=== PATIENT | male | born 1930 | race Caucasian/White ===

== ENCOUNTER 2018-02-11 11:00 | Outpatient (CLI) | payer MEDICARE, OTHER ==
[2018-02-11 19:23] LABS: ALKALINE PHOSPHATASE 57 IU/L (42-121); ALT ALANINE AMINOTRANSFERASE 16 IU/L (10-60); AST ASPARTATE AMINOTRANSFERASE 27 IU/L (10-42); BUN - BLOOD UREA NITROGEN 12 mg/dL (6-20); CARBON DIOXIDE - CO2 27 mmol/L (21-32); CHLORIDE 99 mmol/L (101-111); CHOL/HDL RATIO 2.9 (<5.0); CHOLESTEROL 126 mg/dL; CREATININE 0.6 mg/dL (0.6-1.2); GFR - MDRD 128 (>89); GLUCOSE 102 mg/dL (70-100); HDL CHOLESTEROL 44 mg/dL; LDL CHOLESTEROL,CALCULATED 58 mg/dL; LDL/HDL RATIO 1.3 (<3.6); SODIUM 134 mmol/L (135-145); VLDL CHOLESTEROL 24 mg/dL
[2018-02-11 19:48] LABS: ALBUMIN/GLOBULIN RATIO 0.7 (1.0-2.2); TOTAL PROTEIN 7.3 g/dL (6.7-8.2)
== END 2018-02-11 11:01 | disposition home or self-care (01) ==
LOC: LAB.WCP 11:00
PROVIDERS: ATTEND Family Medicine
DX: E87.1 Hypo-osmolality and hyponatremia (principal); I10 Essential (primary) hypertension; E78.5 Hyperlipidemia, unspecified
CPT/HCPCS: 36415; 80053; 80061; 83721

== ENCOUNTER 2018-04-13 08:56 | Outpatient (CLI) | payer MEDICARE, OTHER | END 2018-04-13 08:57 | disposition critical access hospital (66) | LOC: EMS 08:56 | PROVIDERS: ATTEND Surgery | DX: R55 Syncope and collapse (principal) | CPT/HCPCS: A0425; A0429 ==

== ENCOUNTER 2018-04-13 09:07 | Inpatient (IN) | payer MEDICARE, OTHER ==
--- NOTE | 2018-04-13 09:16 | ED Physician Documentation ---
History of Present Illness - Stated complaint Stated Complaint: SYNCOPAL EPISODE - Additonal information Additional information: hx from pt 88 male syncope BIBA pt states this AM he had a terrible ache from his head down his back to the sacrum was leaning on counter trying to ease the pain then he passed out and fell to the floor no injruy suffered awoke seconds later he believed but was generally weak and unable to get up off the floor, also 2/2 bad L hip which has been that way since his hip replacement denies recent med changed denies RAYMOND CP AP no fever cough NVD urinary sx no blood thinners Review of Systems Constitutional: denies: Fever, Chills Cardiac: denies: Chest pain / pressure, Palpitations Respiratory: denies: Dyspnea, Cough GI: denies: Abdominal Pain, Nausea, Vomiting : denies: Incontinent Musculoskeletal: reports: Back pain Neurologic: reports: Generalized weakness Endocrine: denies: Easy bruising / bleeding Immunocompromised: denies: Immunocompromised PD PAST MEDICAL HISTORY - Past Medical History Cardiovascular: Hypertension, High cholesterol Endocrine/Autoimmune: None HEENT: None Psych: None Musculoskeletal: Rheumatoid arthritis - Past Surgical History Past Surgical History: Yes General: Appendectomy Ortho: Hip replacement HEENT: Cataracts, Tonsil/Adenoidectomy - Present Medications Home Medications: Ambulatory Orders Medication Instructions Recorded Confirmed Aspirin [Children's Aspirin] 81 mg PO DAILY 09/15/13 02/28/16 Simvastatin [Zocor] 20 mg PO QPM 09/15/13 02/28/16 Etanercept [Enbrel] 0 mg IM ONCE 03/09/14 02/28/16 Atenolol 25 mg PO DAILY 04/13/18 Timolol 0.5% Ophth Drops [Timoptic 1 drops 04/13/18 0.5% Ophth Drops] - Allergies Allergies/Adverse Reactions: Allergies Allergy/AdvReac Type Severity Reaction Status Date / Time gold sodium thiomalate Allergy Intermediate Rash Verified 04/13/18 09:16 - Social History Does the pt smoke?: Yes Smoking Status: Current every day smoker Does the pt drink ETOH?: Yes Does the pt have substance abuse?: No - Immunizations Immunizations are current?: Yes - POLST Patient has POLST: Yes PD ED PE NORMAL - Vitals Vital signs reviewed: Yes - General General: Alert and oriented X 3 - HEENT HEENT: Atraumatic, PERRL - Neck Neck: No bony TTP - Cardiac Cardiac: RRR - Respiratory Respiratory: No respiratory distress, Clear bilaterally - Abdomen Abdomen: Non tender, Other (no pulsatile mass appreciated) - Derm Derm: Normal color - Extremities Extremities: No deformity - Neuro Neuro: Alert and oriented X 3, 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, No motor deficit (trouble moving left shoulder and hip 2/2 arthritis but baseline per pt), Normal speech Eye Opening: Spontaneous Motor: Obeys Commands Verbal: Oriented GCS Score: 15 Results - Vitals Vitals: Vital Signs - 24 hr 04/13/18 04/13/18 04/13/18 09:08 10:04 11:32 Temperature 36.0 C L 36.9 C Heart Rate 118 H 57 L Respiratory 15 16 Rate Blood Pressure 156/74 H 136/67 H O2 Saturation 94 98 Oxygen O2 Source [] Nasal cannula O2 Source [] Nasal cannula O2 Source Room air - EKG (time done) 0914 Rate: Rate (enter#) Rhythm: NSR (difficult to identify P waves but regular normal sinus) [place]: Normal - Labs Labs: Laboratory Tests 04/13/18 04/13/18 04/13/18 09:21 09:21 09:21 WBC 3.3 L RBC 4.24 L Hgb 13.8 L Hct 39.7 L MCV 93.6 MCH 32.5 H MCHC 34.7 RDW 15.0 Plt Count 209 MPV 8.2 Neut # (Auto) 1.2 L Lymph # (Auto) 1.5 [place] # (Auto) 0.5 Eos # (Auto) 0.0 Baso # (Auto) 0.0 Absolute Nucleated RBC 0.00 Nucleated RBC % 0.1 Sodium 134 L Potassium 3.5 Chloride 98 L Carbon Dioxide 27 Anion Gap 9.0 BUN 12 Creatinine 0.6 Estimated GFR (MDRD) 127 Glucose 193 H Lactic Acid Calcium 8.7 Total Bilirubin 0.9 AST 26 ALT 14 Alkaline Phosphatase 69 Troponin I < 0.04 Total Protein 6.8 Albumin 2.9 L Globulin 3.9 Albumin/Globulin Ratio 0.7 L Lipase 45 Urine Color Urine Clarity Urine pH Ur Specific [place] Urine Protein Urine Glucose (UA) Urine Ketones Urine Occult Blood Urine Nitrite Urine Bilirubin Urine Urobilinogen Ur Leukocyte Esterase Ur Microscopic Review Urine Culture Comments 09/30/18 09/30/18 09:21 11:34 WBC RBC Hgb Hct MCV MCH MCHC RDW Plt Count MPV Neut # (Auto) Lymph # (Auto) [place] # (Auto) Eos # (Auto) Baso # (Auto) Absolute Nucleated RBC Nucleated RBC % Sodium Potassium Chloride Carbon Dioxide Anion Gap BUN Creatinine Estimated GFR (MDRD) Glucose Lactic Acid 3.3 H* Calcium Total Bilirubin AST ALT Alkaline Phosphatase Troponin I Total Protein Albumin Globulin Albumin/Globulin Ratio Lipase Urine Color YELLOW Urine Clarity CLEAR Urine pH 7.5 Ur Specific [place] 1.010 Urine Protein NEGATIVE Urine Glucose (UA) NEGATIVE Urine Ketones NEGATIVE Urine Occult Blood NEGATIVE Urine Nitrite NEGATIVE Urine Bilirubin NEGATIVE Urine Urobilinogen 0.2 (NORMAL) Ur Leukocyte Esterase NEGATIVE Ur Microscopic Review NOT INDICATED Urine Culture Comments NOT INDICATED - Rads (name of study) CXR Radiology: See rad report (NACPD) CTA chest abd pelvis Radiology: See rad report (no PE no dissection no acute process) PD MEDICAL DECISION MAKING - ED course ED course: syncope in 89 male with tachycardia and elev lactate had back pain so got CTA neg for dissection AAA no infection found on exam or work up - no skin infection, no UTI, no pma gave empiric broad spectrum invanz and will admit - Sepsis Event Vital Signs: Vital Signs - 24 hr 04/13/18 04/13/18 04/13/18 09:08 10:04 11:32 Temperature 36.0 C L 36.9 C Heart Rate 118 H 57 L Respiratory 15 16 Rate Blood Pressure 156/74 H 136/67 H O2 Saturation 94 98 Oxygen O2 Source [] Nasal cannula O2 Source [] Nasal cannula O2 Source Room air Departure - Departure Disposition: 66 [facility] DC/Xfer Clinical Impression: Tachycardia, Elevated lactic acid level Syncope Qualifiers: Syncope type: unspecified Qualified Code(s): R55 - Syncope and collapse Condition: Fair
[2018-04-13 09:27] LABS: BASOPHILS % (AUTO) 0.6 %; EOSINOPHILS % (AUTO) 1.1 %; HGB - HEMOGLOBIN 13.8 g/dL (14.0-18.0); LYMPHOCYTES # (AUTO) 1.5 10^3/uL (1.5-3.5); LYMPHOCYTES % (AUTO) 46.1 %; MEAN CORPUSCULAR HEMOGLOBIN 32.5 pg (27.0-31.0); MEAN CORPUSCULAR HGB CONC 34.7 g/dL (32.0-36.0); MEAN CORPUSCULAR VOLUME 93.6 fL (80.0-94.0); MEAN PLATELET VOLUME 8.2 fL (7.4-11.4); MONOCYTES # (AUTO) 0.5 10^3/uL (0.0-1.0); MONOCYTES % (AUTO) 16.2 %; NEUTROPHILS # (AUTO) 1.2 10^3/uL (1.5-6.6); PLT - PLATELET COUNT 209 10^3/uL (130-450); RED BLOOD COUNT 4.24 10^6/uL (4.70-6.10); WHITE BLOOD COUNT 3.3 x10^3/uL (4.8-10.8)
[2018-04-13 09:42] LABS: ALBUMIN 2.9 g/dL (3.2-5.5); ALBUMIN/GLOBULIN RATIO 0.7 (1.0-2.2); BILIRUBIN,TOTAL 0.9 mg/dL (0.2-1.0); CALCIUM 8.7 mg/dL (8.5-10.3); CREATININE 0.6 mg/dL (0.6-1.2); TOTAL PROTEIN 6.8 g/dL (6.7-8.2)
[2018-04-13] MEDS ORDERED: SODIUM CHLORIDE 0.9% 1,000 ML IV ONE (09:55)
[2018-04-13] MEDS ORDERED: SODIUM CHLORIDE 0.9% 2,400 ML IV ONE (09:55)
[2018-04-13] MEDS ORDERED: IOPAMIDOL-300 100 ML VIAL ONE (10:02)
--- NOTE | 2018-04-13 10:03 | XRAY Report ---
Reason: back pain syncope Procedure Date: 04/13/2018 Accession Number: [id number] / [id number] Procedure: XR - Chest 1 View X-Ray CPT Code: 92626 FULL RESULT: EXAM: CHEST RADIOGRAPHY EXAM DATE: 04/13/2018 09:37 AM. CLINICAL HISTORY: Back pain syncope. COMPARISON: CHEST 2 VIEW PA/LAT 02/28/2016 1:24 PM. TECHNIQUE: Upright AP view. Projection is lordotic. FINDINGS: Lungs/Pleura: Minimal right hemidiaphragm elevation, as before. Minimal linear band of atelectasis or scarring at the right lung base, as before. Otherwise, lungs are clear. No peribronchial cuffing or interstitial abnormality. No pneumothorax or gross pleural fluid. Mediastinum: Within exam limitations, the cardiomediastinal contour is normal. Mild aortic arch calcification. Other: None. IMPRESSION: No evidence of active cardiopulmonary disease. RADIA
[2018-04-13] MEDS ORDERED: IOPAMIDOL-300 100 ML VIAL IVP ONE (10:41)
[2018-04-13 11:36] LABS: BILIRUBIN,URINE NEGATIVE (NEGATIVE); GLUCOSE, URINE (UA) NEGATIVE (NEGATIVE); KETONES,URINE (UA) NEGATIVE (NEGATIVE); LEUKOCYTE ESTERASE, URINE NEGATIVE (NEGATIVE); NITRITE,URINE NEGATIVE (NEGATIVE); OCCULT BLOOD,URINE NEGATIVE (NEGATIVE); PH,URINE 7.5 PH (5.0-7.5); PROTEIN,URINE NEGATIVE (NEGATIVE); UROBILINOGEN,URINE 0.2 (NORMAL) E.U./dL (NORMAL)
[2018-04-13 11:38] LABS: CLARITY,URINE CLEAR (CLEAR)
--- NOTE | 2018-04-13 12:02 | CT Report ---
Reason: back pain sycnope tachycardia Procedure Date: 04/13/2018 Accession Number: [id number] / [id number] Procedure: CT - Chest Angio (AORTA) CPT Code: FULL RESULT: EXAM: CT ANGIOGRAM CHEST, ABDOMEN AND PELVIS EXAM DATE: 04/13/2018 10:51 AM. CLINICAL HISTORY: Back pain sycnope tachycardia. COMPARISONS: Abdomen and pelvis CT of 09/17/2013. Correlation made with chest radiographs of today and 02/28/2016.. TECHNIQUE: Routine axial helical CT angiographic imaging was performed through the chest, abdomen, and pelvis. IV Contrast: 100 mL Omnipaque 350. Reconstructions: Coronal, sagittal. In accordance with CT protocol optimization, one or more of the following dose reduction techniques were utilized for this exam: automated exposure control, adjustment of mA and/or KV based on patient size, or use of iterative reconstructive technique. FINDINGS: Noncontrast images were not performed. The presence of intramural hematoma cannot be assessed. Vascular Structures: No pulmonary embolism. Moderate atherosclerosis of the aorta and its branches. No aneurysm. No dissection or penetrating atherosclerotic ulcer. Common origin of the innominate and left common carotid arteries, a normal anatomic variant. 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 Lungs/Pleura: Moderate biapical pleural parenchymal scarring, left greater than right. Linear scarring at the anterior left upper lobe. Mild right lower lobe dependent atelectasis. A 3 cm bulla left lower lobe, stable. No pleural effusion or pneumothorax. Unchanged moderate right hemidiaphragm elevation. Mediastinum: Normal heart size. No pericardial effusion. Coronary artery atherosclerosis. Upper abdomen: Hypoattenuating lesions in the liver, the largest of which represent cysts and the smallest of which are too small to definitively characterize. Normal spleen, and pancreas, adrenal glands,. Mild bilateral nonspecific perinephric fat stranding. Normal gallbladder. The common bile duct measures up to 10 mm in diameter but tapers normally distally without obstructing lesion identified, likely related to patient's age. Bones: Mild wedge compression deformity of the T6 vertebral body. Other: None. IMPRESSION: 1. No acute abnormality on CT chest angiogram. 2. No pulmonary embolism. 2. No aortic aneurysm, dissection, or penetrating atherosclerotic ulcer. Presence of intramural hematoma cannot be assessed on the postcontrast images. RADIA
[2018-04-13] MEDS ORDERED: ERTAPENEM 1 GM in SODIUM CHLORIDE 0.9% MINIBAG 100 ML IV STA (12:18)
--- NOTE | 2018-04-13 12:18 | CT Report ---
Reason: back pain syncope tachycardia Procedure Date: 04/13/2018 Accession Number: [id number] / [id number] Procedure: CT - Abdomen/Pelvis Angio CPT Code: FULL RESULT: EXAM: CT ANGIOGRAM ABDOMEN AND PELVIS WITH CONTRAST EXAM DATE: 04/13/2018 10:51 AM. CLINICAL HISTORY: Back pain syncope tachycardia. COMPARISONS: Chest CT of today, abdomen and pelvis CT of 09/17/2013. TECHNIQUE: Routine helical CT angiogram imaging was performed through the abdomen and pelvis in the arterial phase. IV contrast: 100 mL Isovue-300 in conjunction with chest CT of today. Enteric contrast: No. Reconstructions: Coronal, sagittal, and 3D MIP reconstructions. In accordance with CT protocol optimization, one or more of the following dose reduction techniques were utilized for this exam: automated exposure control, adjustment of mA and/or KV based on patient size, or use of iterative reconstructive technique. FINDINGS: Presence of intramural hematoma cannot be assessed without noncontrast images. Vasculature: Severe atherosclerosis of the aorta and its branches. 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 Aorta is normal in caliber. 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 No dissection. No penetrating atherosclerotic ulcer. Lung Bases: 3 similar bulla left lower lobe. Mild right lower lobe atelectasis. Stable moderate right hemidiaphragm elevation. Normal heart size. No pericardial effusion. Three-vessel Coronary artery atherosclerosis. Mild bilateral gynecomastia. Abdominal Solid Organs: Hypoattenuating lesions in the liver, the largest of which are perseverative insistence most of which are too small to definitively characterize. Normal spleen, pancreas, adrenal glands. Mild bilateral nonspecific perinephric fat stranding. No renal stones or hydroureteronephrosis. Normal gallbladder. Common bile duct measures up to 10 mm in diameter but tapers normally distally, likely related to patient's age. Peritoneal Cavity: Colonic interposition. Small and large bowel normal in caliber without evidence of inflammation or obstruction. Moderate colonic stool burden. Severe colonic diverticulosis. Apparent mild rectal wall thickening is similar to 2014 CT. No ascites or pneumoperitoneum. Pelvic Organs: Evaluation of the pelvis is degraded by metallic streak artifact. Normal urinary bladder. Bones: Severe degenerative disk disease L3 L4 through L5 S1, stable. Mild wedge compression deformities of L1 and L2, stable. Bilateral total hip arthroplasties appear in near anatomic alignment. Severe bilateral sacroiliac osteoarthritis, stable. Bone [place] right inferior pubic ramus. Other: None. IMPRESSION: 1. No aortic dissection or aneurysm. 2. 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 RADIA
[2018-04-13] MEDS ORDERED: ACETAMINOPHEN 325 MG TABLET PO PRN (13:47)
[2018-04-13] MEDS: D5NS W/20 MEQ KCL 1,000 ML IV SCH (17:09)
[2018-04-13] MEDS: SODIUM CHLORIDE FLUSH 0.9% 10 ML SYRINGE IVP SCH (17:09)
[2018-04-13 19:37] LABS: INR 1.1 (0.8-1.2)
[2018-04-13] MEDS: metroNIDAZOLE 500 MG/100 ML 500 MG/100 ML BAG IV SCH (19:40)
[2018-04-13] MEDS: CEFEPIME 2 GM in SODIUM CHLORIDE 0.9% MINIBAG 100 ML IV SCH (19:40)
[2018-04-13] MEDS ORDERED: VANCOMYCIN PER PHARMACY 100 GM in SODIUM CHLORIDE 0.9% 250 ML IV SCH (20:00)
[2018-04-13] MEDS ORDERED: VANCOMYCIN INJ 2 GM in SODIUM CHLORIDE 0.9% 500 ML IV SCH (20:00)
[2018-04-13] MEDS: TIMOLOL 0.5% OPHTH DROPS EACHEYE SCH (22:03)
--- NOTE | 2018-04-13 23:42 | HISTORY & PHYSICAL EXAMINATION ---
DATE OF SERVICE: 04/13/2018 Physician: Luanne Levine MD HISTORY OF PRESENT ILLNESS: This is an 88-year-old white male with a history of rheumatoid arthritis, COPD and continues to smoke, prior fall with a hip fracture, history of alcohol withdrawal. The patient awoke having back pain, which he states he normally gets occasionally due to his rheumatoid arthritis. The pain became so severe that it was 10/10. He stood up to stretch out his back, walked to the kitchen, warmed up his coffee, and got something out of the refrigerator to drink. As he was standing and stretching out his back, he had a syncopal episode. There was no prodrome of diaphoresis, clammy feeling or palpitations. He did awaken on the floor, thinks he did not have any trauma. He called his [employer] immediately which was on his body. While lying there, he was able to drink the Ensure that he took out of the refrigerator to drink. There was no chest pain. He states that lying on the cool floor on his back relieved his back pain, and he has had none since. The paramedics were able to come in the door because he keeps it unlocked, and they packed him on a gurney and brought him here. He cannot remember what his initial vital signs were on the scene. In the ER, his heart rate was 116 initially, BP was normal. The patient states he had a syncopal episode about 4 years ago when he was taking off a T-shirt reaching over his head and then without warning had syncope. He did hit the back of his head and had a laceration. He did not seek medical attention for this at all, did not get any lacerations, or any imaging of the head. Lately, the patient denies dizziness in general, denies frequent falls. There has been no recent fever, cough, urinary symptoms or diarrhea. No recent travel, no sick contacts, no changes in medications. ALLERGIES: GOLD, WHICH HE GOT 20 YEARS AGO FOR HIS RHEUMATOID ARTHRITIS TREATMENT. MEDICATIONS 1. Timolol eye drops. 2. Zocor 20 mg every evening. 3. Atenolol 25 mg daily. 4. Baby aspirin daily. 5. Possibly Enbrel SOCIAL HISTORY: The patient smokes 1/2 to 1 pack a day, drinks 4 scotch and water drinks every night, denies any illicit drug use. FAMILY HISTORY: No inherited diseases. The patient is , and his ex- then 10 years ago. He has children in the [facility] area but nobody locally. The patient is retired from the [employer] and then worked in the [employer] area and also as a real estate portfolio manager. REVIEW OF SYSTEMS: A comprehensive review of systems was performed, and the pertinent positives are in the HPI; the rest are negative. PHYSICAL EXAMINATION GENERAL: Elderly white male sitting up in bed. He is in no distress. VITAL SIGNS: Blood pressure 140/70, heart rate 58 in sinus rhythm, afebrile, room air saturation 97%. HEENT: Exam reveals anisocoria. He has right lower lid lag. His oral mucosa is moist. He has very poor dentition, with many teeth missing. NECK: Exam shows positive JVD in a vertical position. No carotid bruits. CHEST: Increased AP diameter but lungs are clear. There is no wheezing or rales. CARDIOVASCULAR: Heart sounds normal. No audible murmur. ABDOMEN: Soft. Positive bowel sounds. Nontender. No organomegaly. EXTREMITIES: No clubbing, cyanosis, edema. NEUROLOGIC: Intact. LABORATORY DATA: Sodium 134, potassium 3.5, BUN 12, creatinine 0.6. Lactic acid 3.3. Normal liver tests, normal bilirubin and alkaline phosphatase. Troponin not detectable x2. Lipase normal. White blood count 3.3 with a left shift. Hemoglobin 13.8, MCV 93, RDW normal, platelet count normal at 209. No INR was done. Urinalysis unremarkable. IMAGING Chest x-ray: No active pulmonary disease. The patient had CT scanning and CTA from head down to pelvis, and this showed no remarkable findings such as stroke, bleed. There was atherosclerosis seen in aorta and other vessels but no significant stenoses. ELECTROCARDIOGRAM: Ectopic atrial rhythm with a marked first-degree AV block, LVH voltage, early RS transition. IMPRESSION/DIAGNOSES 1. Syncope. 2. Systemic inflammatory response syndrome (SIRS) with tachycardia on presentation at 116 and elevated lactic acid level. No sign of infection that is obvious, however. 3. Back pain with etiology unclear but no evidence of aortic dissection or spinal abnormality such as abscess. 4. Rheumatoid arthritis, with Enbrel use giving him immunocompromised status. 5. Alcohol abuse. 6. Atherosclerosis, seen by imaging. 7. 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 8. Chronic obstructive pulmonary disease by exam, in a long time smoker. PLAN 1. Place the patient on telemetry. 2. Fully culture. 3. Start IV fluids. 4. Follow his lactic acid until it is normal, per sepsis protocol. 5. Check orthostatic vital signs. 6. Cycle troponins. 7. Obtain an Echocardiogram to rule out structural heart disease. 8. Begin empiric antibiotics for sepsis of unknown etiology using cefepime, vancomycin, Flagyl. Await the cultures, and if they are negative, then after 48 hours the plan will be to stop these. CODE STATUS: FULL CODE. DEEP VENOUS THROMBOSIS PROPHYLAXIS: SCDs. No anticoagulation because of risk of syncope and fall and trauma. ATTESTATION: The patient is expected to be discharged or transferred to another facility within 96 hours: Yes. TD: 04/13/2018 19:18 MTDD
[2018-04-14] MEDS: metroNIDAZOLE 500 MG/100 ML 500 MG/100 ML BAG IV SCH ×3 (04:00→20:27)
[2018-04-14] MEDS: SODIUM CHLORIDE FLUSH 0.9% 10 ML SYRINGE IVP SCH ×3 (04:01→16:18)
[2018-04-14] MEDS: SODIUM CHLORIDE FLUSH 0.9% 10 ML SYRINGE IVP PRN (05:03)
[2018-04-14] MEDS: D5NS W/20 MEQ KCL 1,000 ML IV SCH ×2 (05:07→14:41)
[2018-04-14 06:36] LABS: BASOPHILS % (AUTO) 0.4 %; EOSINOPHILS % (AUTO) 0.7 %; LYMPHOCYTES # (AUTO) 1.9 10^3/uL (1.5-3.5); LYMPHOCYTES % (AUTO) 56.1 %; MEAN CORPUSCULAR HEMOGLOBIN 32.5 pg (27.0-31.0); MEAN CORPUSCULAR HGB CONC 34.6 g/dL (32.0-36.0); MEAN PLATELET VOLUME 7.9 fL (7.4-11.4); MONOCYTES # (AUTO) 0.5 10^3/uL (0.0-1.0); MONOCYTES % (AUTO) 15.5 %; NEUTROPHILS # (AUTO) 0.9 10^3/uL (1.5-6.6); NEUTROPHILS % (AUTO) 27.3 %; PLT - PLATELET COUNT 163 10^3/uL (130-450); RED BLOOD COUNT 3.38 10^6/uL (4.70-6.10); RED CELL DISTRIBUTION WIDTH 14.8 % (12.0-15.0); WHITE BLOOD COUNT 3.3 x10^3/uL (4.8-10.8)
[2018-04-14 06:47] LABS: CREATININE 0.5 mg/dL (0.6-1.2); MAGNESIUM 1.7 mg/dL (1.7-2.8)
[2018-04-14] MEDS: CEFEPIME 2 GM in SODIUM CHLORIDE 0.9% MINIBAG 100 ML IV SCH ×2 (08:13→20:26)
[2018-04-14] MEDS: SACCHAROMYCES BOULARDII 250 MG CAPSULE PO SCH ×2 (08:14→16:18)
[2018-04-14] MEDS: ASPIRIN CHEW 81 MG TABLET PO SCH (08:14)
[2018-04-14] MEDS: FAMOTIDINE 20 MG TABLET PO SCH (08:14)
[2018-04-14] MEDS: POLYETHYLENE GLYCOL 3350 17 GM PACKET PO SCH (08:15)
[2018-04-14] MEDS: TIMOLOL 0.5% OPHTH DROPS EACHEYE SCH ×2 (08:19→20:38)
[2018-04-14] MEDS ORDERED: POTASSIUM CHLORIDE 20 MEQ TABLET PO SCH (08:21)
--- NOTE | 2018-04-14 11:07 | PROVIDER PROGRESS NOTE ---
Assessment/Plan - Problem List (1) Syncope Qualifiers: Syncope type: unspecified Qualified Code(s): R55 - Syncope and collapse Assessment/Plan: The patient was orthostatic yesterday with drop in systolic BP >20 mmHg with standing. Today's postural VS show improvement, after hydration overnight. Trop s are neg. Echo still pending. Will ask for PT and OT eval today. I suspect the patient may need more assistance at home than just [employer] deliveries for dinner daily. (2) Elevated lactic acid level Assessment/Plan: No obvious source of an infection. Possibly elevated due to dehydration. Will continue empiric iv antibiotics for 48 hours then stop if no infection found. (3) Dehydration Assessment/Plan: Poor po intake, patient admits to. Continue iv hydration today. Nutrition to assess for malnutrition and suggest dietary changes. (4) Rheumatoid arthritis Assessment/Plan: It is unclear if he takes Enbrel currently or not. Will ask Pharmacy to clarify. Pt has no complaints of arthritic pain today. (5) HTN (hypertension) Assessment/Plan: The Atenolol was on hold, since his EKG showed an ectopic atrial rhythm along with a marked first degree block, which could have been the cause of syncope, if he had a higher degree of heart block. Will recheck his rhythm with an EKG and will continue on telemetry to monitor his rhythm, especially while he is starting to ambulate with PT. (6) Leukopenia Assessment/Plan: Unclear etiology; possibly bone marrow suppression from Enbrel, or due to poor ability to mount a WBC response to huge infection at elderly age (but he does not appear toxic), or from unknown bone marrow malignancy. Continue to monitor CBC daily. - Current Meds Current Meds: Current Medications Generic Name Dose Route Start Last Admin Trade Name Freq PRN Reason Stop Dose Admin Aspirin 81 mg 04/14/18 09:00 04/14/18 08:14 [place] Aspirin PO 81 mg DAILY WILLIE Administration Famotidine 20 mg 04/14/18 09:00 04/14/18 08:14 Pepcid PO 20 mg DAILY WILLIE Administration Potassium Chloride/Dextrose/Sod Cl 1,000 mls @ 100 mls/hr 04/13/18 14:00 04/14/18 05:07 IV 100 mls/hr .Q10H WILLIE Administration Cefepime HCl 2 gm/ Sodium 100 mls @ 200 mls/hr 04/13/18 20:00 04/14/18 08:45 Chloride IV Infused Q12H WILLIE Infusion Metronidazole 500 mg in 100 mls @ 100 mls/hr 04/13/18 20:00 04/14/18 05:04 Flagyl 500 Mg/100 Ml IV Infused Q8H WILLIE Infusion Vancomycin HCl 100 gm/ Sodium 250 mls @ 167 mls/hr 04/13/18 20:00 04/13/18 21:16 Chloride IV Not Given Q400H WILLIE Polyethylene Glycol 17 gm 04/14/18 09:00 04/14/18 08:15 Miralax PO Not Given DAILY WILLIE Saccharomyces Boulardii 250 mg 04/14/18 08:00 04/14/18 08:14 Florastor PO 250 mg BIDWM WILLIE Administration Sodium Chloride 10 ml 04/13/18 13:47 04/14/18 05:03 Normal Saline Flush 0.9% IVP 10 ml PRN PRN Administration NEEDED PER PROVIDER ORDERS Sodium Chloride 10 ml 04/13/18 17:00 04/14/18 08:15 Normal Saline Flush 0.9% IVP Not Given 0100,0900,1700 WILLIE Timolol Maleate 1 drops 04/13/18 21:00 04/14/18 08:19 Timoptic 0.5% Ophth Drops EACHEYE 1 drops BID WILLIE Administration - Lab Result Fish Bone Diagrams: 04/14/18 06:17 04/14/18 06:17 - Additional Planning My Orders: My Active Orders 04/13/18 13:47 Activity Orders [RC] QSHIFT IO [RC] IOSHIFT Initiate Bowel Care Protocol [RC] .protocol Initiate Line Care Protocol [RC] .protocol Initiate Line Care Protocol [RC] QSHIFT Initiate Personal Care Protoco [RC] .protocol Oxygen Therapy [RC] Routine Vital Signs [RC] 0800,1600,0000 Acetaminophen [Tylenol] 650 mg PO Q4HR PRN Sodium Chloride Flush 0.9% [Normal Saline Flush 0.9%] 10 ml IVP PRN PRN Code Status [OTHERS] Routine Condition of Patient [OTHERS] Routine DVT Prophylaxis [OTHERS] Routine 04/13/18 13:50 IV Insert [RC] .ONCE SCDs [RC] QSHIFT Telemetry- [RC] Q4H 04/13/18 13:51 Echo Transthoracic Complete [ECHO] Routine Evaluate and Treat OT [OT] Routine Evaluate and Treat PT [PT] Routine 04/13/18 13:54 Postural [Vital Signs - Orthostatic] [RC] QSHIFT 04/13/18 14:00 D5ns W/20 Meq KCl 1,000 ml IV 100 mls/hr 04/13/18 16:36 CUL, URINE [RM] Routine 04/13/18 17:00 Sodium Chloride Flush 0.9% [Normal Saline Flush 0.9%] 10 ml IVP 0100,0900,1700 04/13/18 18:48 CIWA-Ar Score Assessment [RC] ENDSHIFT 04/13/18 20:00 Cefepime 2 gm Sodium Chloride 0.9% Minibag [Normal Saline 0.9% Minibag] 100 ml IV Q12H Vancomycin Per Pharmacy [Vancomycin-Pharmacy To Dose] 100 gm Sodium Chloride 0.9% [Normal Saline 0.9%] 250 ml IV Q400H metroNIDAZOLE 500 MG/100 ML [Flagyl 500 mg/100 ml] 500 mg in 100 ml IV Q8H 04/13/18 21:00 Timolol 0.5% Ophth Drops [Timoptic 0.5% Ophth Drops] 1 drops EACHEYE BID 04/13/18 Dinner Regular Diet [DIET] 04/14/18 09:00 Aspirin Chewable [[place] Aspirin] 81 mg PO DAILY Famotidine [Pepcid] 20 mg PO DAILY Polyethylene Glycol 3350 [Miralax] 17 gm PO DAILY 04/14/18 11:00 Atenolol [Tenormin] 25 mg PO DAILY 04/14/18 14:00 Vancomycin Inj [Vancomycin] 1 gm Sodium Chloride 0.9% [Normal Saline 0.9%] 250 ml IV Q18H 04/15/18 05:00 BMP - BASIC METABOLIC PANEL [CHEM] DAILYLAB CBC - COMP BLD CT W/AUTO DIFF [HEME] DAILYLAB MAGNESIUM [CHEM] DAILYLAB 04/16/18 05:00 BMP - BASIC METABOLIC PANEL [CHEM] DAILYLAB CBC - COMP BLD CT W/AUTO DIFF [HEME] DAILYLAB MAGNESIUM [CHEM] DAILYLAB Subjective - Subjective Patient Reports: Feeling Better, Resting Comfortably, Other (Still has no appetite.) Objective Vital Signs: Vital Signs - 24 hr 04/13/18 04/13/18 04/13/18 11:32 12:36 15:00 Temperature 36.9 C 36.8 C Heart Rate 70 Heart Rate [ 62 Brachial] Heart Rate [ Sitting (After 1 Minute)] Heart Rate [ Standing (After 1 Minute)] Heart Rate [ Supine] Respiratory 24 16 Rate Blood Pressure 145/97 H Blood Pressure 149/78 H [Right Brachial artery] Blood Pressure [Sitting (After 1 Minute)] Blood Pressure [Standing ( After 1 Minute) ] Blood Pressure [Supine] O2 Saturation 100 100 04/13/18 04/13/18 04/13/18 16:00 16:23 21:02 Temperature 36.4 C L 36.4 C L Heart Rate 63 Heart Rate [ 58 L Brachial] Heart Rate [ 65 Sitting (After 1 Minute)] Heart Rate [ 71 Standing (After 1 Minute)] Heart Rate [ 58 L Supine] Respiratory 18 16 Rate Blood Pressure Blood Pressure 165/87 H [Right Brachial artery] Blood Pressure 113/62 [Sitting (After 1 Minute)] Blood Pressure 124/65 [Standing ( After 1 Minute) ] Blood Pressure 165/87 H [Supine] O2 Saturation 97 97 04/13/18 04/14/18 04/14/18 23:40 01:30 01:52 Temperature 36.4 C L Heart Rate Heart Rate [ 58 L 59 L Brachial] Heart Rate [ 60 Sitting (After 1 Minute)] Heart Rate [ 67 Standing (After 1 Minute)] Heart Rate [ 62 Supine] Respiratory 16 Rate Blood Pressure Blood Pressure 129/64 134/56 H [Right Brachial artery] Blood Pressure 128/78 [Sitting (After 1 Minute)] Blood Pressure 134/62 H [Standing ( After 1 Minute) ] Blood Pressure 134/65 H [Supine] O2 Saturation 96 96 04/14/18 04/14/18 05:40 08:00 Temperature 36.6 C 36.5 C Heart Rate Heart Rate [ 57 L 64 Brachial] Heart Rate [ Sitting (After 1 Minute)] Heart Rate [ Standing (After 1 Minute)] Heart Rate [ Supine] Respiratory 18 26 H Rate Blood Pressure Blood Pressure 123/57 L 134/62 H [Right Brachial artery] Blood Pressure [Sitting (After 1 Minute)] Blood Pressure [Standing ( After 1 Minute) ] Blood Pressure [Supine] O2 Saturation 97 95 Oxygen O2 Source [With Activity] Nasal cannula O2 Source [Without Activity] Nasal cannula O2 Source Room air I&O (Last 24 Hrs): Intake and Output Totals x24h 04/12/18 04/13/18 04/14/18 23:59 23:59 23:59 Intake Total 3363.334 1436.666 Output Total 800 500 Balance 2563.334 936.666 General: Alert, Oriented x3 HEENT: Mucous membr. moist/pink, Other (Lower lids lag) Neck: Supple, No JVD Neuro: Non Focal, Oriented Times 3 Cardiovascular: No murmurs Respiratory: No respiratory distress Abdomen: Soft Extremities: No edema - Results Results: Laboratory Results WBC 3.3 x10^3/uL (4.8-10.8) L 04/14/18 06:17 RBC 3.38 10^6/uL (4.70-6.10) L 04/14/18 06:17 Hgb 11.0 g/dL (14.0-18.0) L 04/14/18 06:17 Hct 31.8 % (42.0-52.0) L 04/14/18 06:17 MCV 94.0 fL (80.0-94.0) 04/14/18 06:17 MCH 32.5 pg (27.0-31.0) H 04/14/18 06:17 MCHC 34.6 g/dL (32.0-36.0) 04/14/18 06:17 RDW 14.8 % (12.0-15.0) 04/14/18 06:17 Plt Count 163 10^3/uL (130-450) 04/14/18 06:17 MPV 7.9 fL (7.4-11.4) 04/14/18 06:17 Neut # (Auto) 0.9 10^3/uL (1.5-6.6) L 04/14/18 06:17 Lymph # (Auto) 1.9 10^3/uL (1.5-3.5) 04/14/18 06:17 [place] # (Auto) 0.5 10^3/uL (0.0-1.0) 04/14/18 06:17 Eos # (Auto) 0.0 10^3/uL (0.0-0.7) 04/14/18 06:17 Baso # (Auto) 0.0 10^3/uL (0.0-0.1) 04/14/18 06:17 Absolute Nucleated RBC 0.00 x10^3/uL 04/14/18 06:17 Nucleated RBC % 0.1 /100WBC 04/14/18 06:17 ESR 44 mm/Hr (0-20) H 04/13/18 20:52 PT 12.0 secs (9.9-12.6) 04/13/18 09:21 INR 1.1 (0.8-1.2) 04/13/18 09:21 Sodium 135 mmol/L (135-145) 04/14/18 06:17 Potassium 3.2 mmol/L (3.5-5.0) L 04/14/18 06:17 Chloride 103 mmol/L (101-111) 04/14/18 06:17 Carbon Dioxide 24 mmol/L (21-32) 04/14/18 06:17 Anion Gap 8.0 (6-13) 04/14/18 06:17 BUN 10 mg/dL (6-20) 04/14/18 06:17 Creatinine 0.5 mg/dL (0.6-1.2) L 04/14/18 06:17 Estimated GFR (MDRD) 157 (>89) 04/14/18 06:17 Glucose 128 mg/dL (70-100) H 04/14/18 06:17 Lactic Acid 1.1 mmol/L (0.5-2.2) 04/14/18 06:17 Calcium 8.0 mg/dL (8.5-10.3) L 04/14/18 06:17 Magnesium 1.7 mg/dL (1.7-2.8) 04/14/18 06:17 Total Bilirubin 0.9 mg/dL (0.2-1.0) 04/13/18 09:21 AST 26 IU/L (10-42) 04/13/18 09:21 ALT 14 IU/L (10-60) 04/13/18 09:21 Alkaline Phosphatase 69 IU/L (42-121) 04/13/18 09:21 Troponin I < 0.04 ng/mL (<0.49) 04/13/18 20:52 Total Protein 6.8 g/dL (6.7-8.2) 04/13/18 09:21 Albumin 2.9 g/dL (3.2-5.5) L 04/13/18 09:21 Globulin 3.9 g/dL (2.1-4.2) 04/13/18 09:21 Albumin/Globulin Ratio 0.7 (1.0-2.2) L 04/13/18 09:21 Lipase 45 U/L (22-51) 04/13/18 09:21 Urine Color YELLOW 04/13/18 11:34 Urine Clarity CLEAR (CLEAR) 04/13/18 11:34 Urine pH 7.5 PH (5.0-7.5) 04/13/18 11:34 Ur Specific [place] 1.010 (1.002-1.030) 04/13/18 11:34 Urine Protein NEGATIVE mg/dL (NEGATIVE) 04/13/18 11:34 Urine Glucose (UA) NEGATIVE mg/dL (NEGATIVE) 04/13/18 11:34 Urine Ketones NEGATIVE mg/dL (NEGATIVE) 04/13/18 11:34 Urine Occult Blood NEGATIVE (NEGATIVE) 04/13/18 11:34 Urine Nitrite NEGATIVE (NEGATIVE) 04/13/18 11:34 Urine Bilirubin NEGATIVE (NEGATIVE) 04/13/18 11:34 Urine Urobilinogen 0.2 (NORMAL) E.U./dL (NORMAL) 04/13/18 11:34 Ur Leukocyte Esterase NEGATIVE (NEGATIVE) 04/13/18 11:34 Ur Microscopic Review NOT INDICATED 04/13/18 11:34 Urine Culture Comments NOT INDICATED 04/13/18 11:34 - Procedures Procedures: Procedures CATARAC PHACOEMULS/ASPIR (02/10/15) INSERT LENS AT CATAR EXT (02/10/15) PARTIAL HIP REPLACEMENT (09/15/13) ABX Reporting Has patient been on IV antibiotics over the past 48 hours?: Yes
[2018-04-14] MEDS: ATENOLOL 25 MG TABLET PO SCH (11:44)
--- NOTE | 2018-04-14 12:47 | ADVANCE CARE PLANNING NOTE ---
Advance Care Planning - Date/Time Date: 04/14/18 Time: 08:45 - Purpose of encounter Text: To establish patient's wishes regarding Code status and aggressiveness of care. - Parties in attendance Parties in attendance: The patient and I spoke in his room. - Decisional capacity Decisional capacity of: The patient is alert and oriented x3 and capable of making decisions. - Subjective/Patient's story Subjective/Patient's story: The patient was marries, and ex- 10 years ago. His 2 children live in this state and out of state. There is beatriz who is the closest. He lives alone, drives, spends his day, watching TV and reading. He makes no meals for himself, gets no home help, but gets [employer] for dinner every day for the past 4 years. He does not wish to be shocked or have CPR for a cardiac arrest, but wants all other and aggressive medical care if there is a chance of improving his medical condition, including being transferred to higher level of care facilities if needed. - Objective/Medical story Objective/Medical Story: He presented after syncope in his home. He wears his Life Alert and pressed it. He leaves his door unlocked and the contour sander were able to walk into his home, they found him on the floor. He does not have a history of frequent falls, he has had one other syncopal episode 4 years ago (for which he sought no medical attention). He is dehydrated and was admitted with tachycardia and elevated lactic acid level, therefore he may have an occult infection, cultures are pending while he is on empiric iv antibiotics. He has rheumatoid arthritis and was on Enbrel until about 6 mos ago, when he last picked up a prescription from the pharmacy at the [facility]. He does not have severe arthritic pain. - Goals of Care Goals of care determinations: Will order DNR status per his wishes. He will be seen by PT, OT and Social Work to assess for need for more in-home help. - Plan Plan: Will order DNR status per his wishes. - Code Status Code Status: Do Not Attempt Resuscitation - Time Spent on Advance Care Planning Time spent on advance care plannin min
[2018-04-14] MEDS ORDERED: BENZOCAINE/MENTHOL LOZENGE MM PRN (18:53)
[2018-04-14] MEDS ORDERED: VANCOMYCIN INJ 1.25 GM in SODIUM CHLORIDE 0.9% 250 ML IV SCH (22:00)
[2018-04-15] MEDS: D5NS W/20 MEQ KCL 1,000 ML IV SCH ×3 (02:29→23:51)
[2018-04-15] MEDS: SODIUM CHLORIDE FLUSH 0.9% 10 ML SYRINGE IVP SCH ×4 (03:43→23:52)
[2018-04-15] MEDS: metroNIDAZOLE 500 MG/100 ML 500 MG/100 ML BAG IV SCH (03:43)
[2018-04-15] MEDS: SODIUM CHLORIDE FLUSH 0.9% 10 ML SYRINGE IVP PRN (04:51)
[2018-04-15 06:44] LABS: BASOPHILS % (AUTO) 0.5 %; EOSINOPHILS % (AUTO) 1.1 %; HGB - HEMOGLOBIN 11.1 g/dL (14.0-18.0); LYMPHOCYTES # (AUTO) 2.2 10^3/uL (1.5-3.5); LYMPHOCYTES % (AUTO) 52.8 %; MEAN CORPUSCULAR HEMOGLOBIN 32.8 pg (27.0-31.0); MEAN CORPUSCULAR HGB CONC 35.3 g/dL (32.0-36.0); MEAN CORPUSCULAR VOLUME 92.9 fL (80.0-94.0); MONOCYTES # (AUTO) 0.6 10^3/uL (0.0-1.0); MONOCYTES % (AUTO) 15.4 %; NEUTROPHILS # (AUTO) 1.2 10^3/uL (1.5-6.6); NEUTROPHILS % (AUTO) 30.2 %; PLT - PLATELET COUNT 163 10^3/uL (130-450); RED CELL DISTRIBUTION WIDTH 15.1 % (12.0-15.0); WHITE BLOOD COUNT 4.1 x10^3/uL (4.8-10.8)
[2018-04-15 06:51] LABS: CALCIUM 7.8 mg/dL (8.5-10.3); CREATININE 0.5 mg/dL (0.6-1.2); MAGNESIUM 1.7 mg/dL (1.7-2.8)
[2018-04-15] MEDS: TIMOLOL 0.5% OPHTH DROPS EACHEYE SCH ×2 (08:20→20:26)
[2018-04-15] MEDS: ASPIRIN CHEW 81 MG TABLET PO SCH (08:20)
[2018-04-15] MEDS: SACCHAROMYCES BOULARDII 250 MG CAPSULE PO SCH ×2 (08:20→16:20)
[2018-04-15] MEDS: ATENOLOL 25 MG TABLET PO SCH (08:20)
[2018-04-15] MEDS: FAMOTIDINE 20 MG TABLET PO SCH (08:20)
[2018-04-15] MEDS: CEFEPIME 2 GM in SODIUM CHLORIDE 0.9% MINIBAG 100 ML IV SCH (08:20)
[2018-04-15] MEDS: POLYETHYLENE GLYCOL 3350 17 GM PACKET PO SCH (08:21)
--- NOTE | 2018-04-15 11:47 | PROVIDER PROGRESS NOTE ---
Subjective - Prog Note Date Prog Note Date: 04/15/18 Prog Note Time: 11:53 - Subjective Subjective: Daughter is in the room. Really concerned because she thinks dad needs help at home. Is looking to get 2 hours of help a day. Social work is already spoken to her yesterday and giving her a list of in-home support providers. I have explained that she really needs to take that list and start calling those people to hire them. Mr. Arzate himself is just weak. He developed copious diarrhea from the antibiotics. He denies abdominal pain, chest pain, shortness of breath. Just feels like a "limp noodle". Current Medications - Current Medications Current Medications: Active Medications Acetaminophen (Tylenol) 650 mg PO Q4HR PRN PRN Reason: Pain or Fever > 38C (100.4F) Aspirin ([place] Aspirin) 81 mg PO DAILY [facility] Last Admin: 04/15/18 08:20 Dose: 81 mg Atenolol (Tenormin) 25 mg PO DAILY [facility] Last Admin: 04/15/18 08:20 Dose: 25 mg Famotidine (Pepcid) 20 mg PO DAILY [facility] Last Admin: 04/15/18 08:20 Dose: 20 mg Potassium Chloride/Dextrose/Sod Cl () 1,000 mls @ 100 mls/hr IV .Q10H [facility] Last Admin: 04/15/18 02:29 Dose: 100 mls/hr Cefepime HCl 2 gm/ Sodium (Chloride) 100 mls @ 200 mls/hr IV Q12H [facility] Last Infusion: 04/15/18 08:50 Dose: Infused Metronidazole (Flagyl 500 Mg/100 Ml) 500 mg in 100 mls @ 100 mls/hr IV Q8H [facility] Last Infusion: 04/15/18 04:48 Dose: Infused Vancomycin HCl 1.25 gm/ Sodium (Chloride) 250 mls @ 167 mls/hr IV Q24H [facility] Last Infusion: 04/14/18 23:32 Dose: Infused Polyethylene Glycol (Miralax) 17 gm PO DAILY [facility] Last Admin: 04/15/18 08:21 Dose: Not Given Saccharomyces Boulardii (Florastor) 250 mg PO BIDWM [facility] Last Admin: 04/15/18 08:20 Dose: 250 mg Sodium Chloride (Normal Saline Flush 0.9%) 10 ml IVP PRN PRN PRN Reason: NEEDED PER PROVIDER ORDERS Last Admin: 04/15/18 04:51 Dose: 10 ml Sodium Chloride (Normal Saline Flush 0.9%) 10 ml IVP 0100,0900,1700 [facility] Last Admin: 04/15/18 08:21 Dose: 10 ml Throat Lozenges (Cepacol) 1 lozenge MM Q2HR PRN PRN Reason: Throat pain Last Admin: 04/14/18 21:53 Dose: 1 lozenge Timolol Maleate (Timoptic 0.5% Ophth Drops) 1 drops EACHEYE BID [facility] Last Admin: 04/15/18 08:20 Dose: 1 drops Aspirin [Children's Aspirin] 81 mg PO DAILY 09/15/13 Simvastatin [Zocor] 20 mg PO QPM 09/15/13 Atenolol 25 mg PO DAILY 04/13/18 Timolol 0.5% Ophth Drops [Timoptic 0.5% Ophth Drops] 1 drops EACHEYE BID 04/13/18 Objective - Vital Signs/Intake & Output Reviewed Vital Signs: Yes Vital Signs: Vital Signs x48h Temp Pulse Pulse Pulse Pulse Resp BP 04/15/18 09:00 37.0 C 63 18 149/73 H 04/15/18 06:35 71 62 64 04/15/18 06:00 36.4 C L 60 18 149/75 H BP BP BP Pulse Ox 04/15/18 09:00 93 04/15/18 06:35 146/76 H 133/63 H 151/69 H 04/15/18 06:00 95 Intake & Output: Intake & Output 04/12/18 04/13/18 04/14/18 04/15/18 23:59 23:59 23:59 23:59 Intake Total 3363.334 4060.000 735 Output Total 800 1260 275 Balance 2563.334 2800.000 460 - Objective General Appearance: positive: No acute distress, Other (Frail, cachectic, elderly gentleman, who is alert, slightly deaf, and a lot of his teeth missing) Eyes Bilateral: positive: PERRL ENT: positive: Other (Really bad teeth, Upper front teeth missing) Neck: positive: No JVD. negative: Stiff neck, Carotid bruit Respiratory: positive: Chest non-tender. negative: Wheezes, Rales, Rhonchi Cardiovascular: positive: Regular rate & rhythm, Systolic murmur. negative: Gallop/S4, Friction rub Abdomen: positive: Non-tender, No organomegaly, Nml bowel sounds, No distention Skin: positive: Dry, Pallor Extremities: positive: Full ROM, Pedal edema. negative: Nml appearance (Severe rheumatoid deformity) Neurologic/Psychiatric: positive: Oriented x3, CN's nml (2-12) (Slightly deaf), Motor nml, Weakness (Generalized) - Lab Results Fish Bones: 04/15/18 06:30 04/15/18 06:30 Other Labs: Lab Results x24hrs 04/15/18 04/15/18 Range/Units 06:30 06:30 WBC 4.1 L (4.8-10.8) x10^3/uL RBC 3.40 L (4.70-6.10) 10^6/uL Hgb 11.1 L (14.0-18.0) g/dL Hct 31.5 L (42.0-52.0) % MCV 92.9 (80.0-94.0) fL MCH 32.8 H (27.0-31.0) pg MCHC 35.3 (32.0-36.0) g/dL RDW 15.1 H (12.0-15.0) % Plt Count 163 (130-450) 10^3/uL MPV 8.0 (7.4-11.4) fL Neut # (Auto) 1.2 L (1.5-6.6) 10^3/uL Lymph # (Auto) 2.2 (1.5-3.5) 10^3/uL [place] # (Auto) 0.6 (0.0-1.0) 10^3/uL Eos # (Auto) 0.0 (0.0-0.7) 10^3/uL Baso # (Auto) 0.0 (0.0-0.1) 10^3/uL Absolute Nucleated RBC 0.00 x10^3/uL Nucleated RBC % 0.0 /100WBC Sodium 134 L (135-145) mmol/L Potassium 3.6 (3.5-5.0) mmol/L Chloride 105 (101-111) mmol/L Carbon Dioxide 23 (21-32) mmol/L Anion Gap 6.0 (6-13) BUN 9 (6-20) mg/dL Creatinine 0.5 L (0.6-1.2) mg/dL Estimated GFR (MDRD) 157 (>89) Glucose 127 H (70-100) mg/dL Calcium 7.8 L (8.5-10.3) mg/dL Magnesium 1.7 (1.7-2.8) mg/dL ABX Reporting Has patient been on IV antibiotics over the past 48 hours?: Yes Assessment/Plan - Problem List (1) Syncope Impression: The patient was orthostatic 04/13 on admission with drop in systolic BP >20 mmHg with standing. 04/14 postural VS show improvement, after hydration overnight. Trop s are neg. Echo has a LVEF 60-65%, no aortic stenosis, mod abnml Right heart pressures at 55 mmHg RVSP PT and OT eval: Pt. is a pleasant, cooperative 88 yo. M w/SIRS, who presents w/decreased independence w/his transfers and walking at this time; he will need continued PT in the hospital working on progression of functional mobility toward independent living at his home; he may need stay at SNF after his hospital d/c to continue working on strengthening and gait. Recommend transport via w/c van to SNF. If pt. progressess to meet his goals he may be OK to return home w/possible f/u PT I suspect the patient may need more assistance at home than just [employer] deliveries for dinner daily. Daughter will be hiring in home support. (2) Elevated lactic acid level Assessment/Plan: No obvious source of an infection. Possibly elevated due to dehydration. Continued empiric iv antibiotics for 48 hours and blood/urine cultures negative. Will stop IV abx especially since he has a lot of diarrhea. (3) Dehydration Assessment/Plan: patient admits to Poor po intake with ~4 oz scotch a day Now with diarrhea. Continue iv hydration Nutrition assessed for malnutrition and suggest dietary changes:pt with out wt loss (wt 76 kg in 2016 now 76 kg). uses MOW at home and drinks one can of Ensure a day. stated he didn't like his food choices. legal support assistant and RDN working with pt to find foods he might like. supportive care. would remove PPI if not medically necessary. (4) Rheumatoid arthritis Assessment/Plan: It is unclear if he takes Enbrel currently or not. Asked Pharmacy to clarify and he hasnt filled it for >6 months. Pt has no complaints of arthritic pain today but everything does hurt. (5) HTN (hypertension) Assessment/Plan: The Atenolol was on hold, since his EKG showed an ectopic atrial rhythm along with a marked first degree block, which could have been the cause of syncope, if he had a higher degree of heart block. No recheck of his rhythm with an EKG but continued on telemetry to monitor his rhythm, especially while he is starting to ambulate with PT. Tele shows missy 1st degree AVB and PAC's. surg tech read it as afib. I will order EKG. (6) Leukopenia Assessment/Plan: Unclear etiology; possibly bone marrow suppression from Enbrel, or due to poor ability to mount a WBC response to huge infection at elderly age (but he does not appear toxic), or from unknown bone marrow malignancy. Continue to monitor CBC daily. Qualifiers: Syncope type: unspecified Qualified Code(s): R55 - Syncope and collapse
[2018-04-15] MEDS: MULTIVITAMIN W/MINERALS TABLET PO SCH (16:22)
[2018-04-15 21:47] LABS: VANCOMYCIN,TROUGH 6.8 ug/mL (10.0-20.0)
[2018-04-16 06:05] LABS: BASOPHILS % (AUTO) 0.3 %; EOSINOPHILS % (AUTO) 0.5 %; LYMPHOCYTES # (AUTO) 1.8 10^3/uL (1.5-3.5); LYMPHOCYTES % (AUTO) 50.2 %; MEAN CORPUSCULAR HEMOGLOBIN 32.3 pg (27.0-31.0); MEAN CORPUSCULAR HGB CONC 34.6 g/dL (32.0-36.0); MEAN CORPUSCULAR VOLUME 93.4 fL (80.0-94.0); MEAN PLATELET VOLUME 8.2 fL (7.4-11.4); MONOCYTES # (AUTO) 0.6 10^3/uL (0.0-1.0); MONOCYTES % (AUTO) 17.8 %; NEUTROPHILS # (AUTO) 1.1 10^3/uL (1.5-6.6); NEUTROPHILS % (AUTO) 31.2 %; PLT - PLATELET COUNT 161 10^3/uL (130-450); WHITE BLOOD COUNT 3.5 x10^3/uL (4.8-10.8)
[2018-04-16 06:15] LABS: CALCIUM 7.9 mg/dL (8.5-10.3); CREATININE 0.4 mg/dL (0.6-1.2); MAGNESIUM 1.6 mg/dL (1.7-2.8)
[2018-04-16] MEDS ORDERED: POTASSIUM CHLORIDE 20 MEQ TABLET PO SCH (07:41)
[2018-04-16] MEDS: FAMOTIDINE 20 MG TABLET PO SCH (09:13)
[2018-04-16] MEDS: MULTIVITAMIN W/MINERALS TABLET PO SCH (09:13)
[2018-04-16] MEDS: ASPIRIN CHEW 81 MG TABLET PO SCH (09:13)
[2018-04-16] MEDS: SODIUM CHLORIDE FLUSH 0.9% 10 ML SYRINGE IVP SCH ×2 (09:14→17:09)
[2018-04-16] MEDS: POLYETHYLENE GLYCOL 3350 17 GM PACKET PO SCH (09:14)
[2018-04-16] MEDS: TIMOLOL 0.5% OPHTH DROPS EACHEYE SCH ×2 (09:15→20:21)
[2018-04-16] MEDS: D5NS W/20 MEQ KCL 1,000 ML IV SCH (09:46)
[2018-04-16] MEDS ORDERED: ATENOLOL 25 MG TABLET PO SCH (10:47)
[2018-04-16] MEDS: SACCHAROMYCES BOULARDII 250 MG CAPSULE PO SCH ×2 (12:04→17:09)
[2018-04-16] MEDS: TAMSULOSIN 0.4 MG CAPSULE PO SCH (12:04)
--- NOTE | 2018-04-16 13:46 | PROVIDER PROGRESS NOTE ---
Subjective - Prog Note Date Prog Note Date: 04/16/18 Prog Note Time: 13:46 - Subjective Subjective: No new complaints. Anxious to go home. Getting very cranky with the nurses. Mainly he just does not want to be here anymore and he wants to be home. Not andreina is making him happy. He is eating up to 50% of his meals. It has improved from 0-20% before. Is having episodes of urinary retention. Had to have in and out straight cathed for 350 cc. But he denies dysuria, urgency frequency. Does not feel like his got ago. Current Medications - Current Medications Current Medications: Active Medications Acetaminophen (Tylenol) 650 mg PO Q4HR PRN PRN Reason: Pain or Fever > 38C (100.4F) Last Admin: 04/16/18 12:04 Dose: 650 mg Aspirin ([place] Aspirin) 81 mg PO DAILY [facility] Last Admin: 04/16/18 09:13 Dose: 81 mg Atenolol (Tenormin) 25 mg PO DAILY [facility] Famotidine (Pepcid) 20 mg PO DAILY [facility] Last Admin: 04/16/18 09:13 Dose: 20 mg Potassium Chloride/Dextrose/Sod Cl () 1,000 mls @ 100 mls/hr IV .Q10H [facility] Last Admin: 04/16/18 09:46 Dose: 100 mls/hr Multivitamins/Minerals (Theragran M) 1 tab PO DAILYWM [facility] Last Admin: 04/16/18 09:13 Dose: 1 tab Polyethylene Glycol (Miralax) 17 gm PO DAILY [facility] Last Admin: 04/16/18 09:14 Dose: Not Given Saccharomyces Boulardii (Florastor) 250 mg PO BIDWM [facility] Last Admin: 04/16/18 12:04 Dose: 250 mg Sodium Chloride (Normal Saline Flush 0.9%) 10 ml IVP PRN PRN PRN Reason: NEEDED PER PROVIDER ORDERS Last Admin: 04/15/18 04:51 Dose: 10 ml Sodium Chloride (Normal Saline Flush 0.9%) 10 ml IVP 0100,0900,1700 [facility] Last Admin: 04/16/18 09:14 Dose: 10 ml Tamsulosin HCl (Flomax) 0.4 mg PO DAILY [facility] Last Admin: 04/16/18 12:04 Dose: 0.4 mg Throat Lozenges (Cepacol) 1 lozenge MM Q2HR PRN PRN Reason: Throat pain Last Admin: 04/14/18 21:53 Dose: 1 lozenge Timolol Maleate (Timoptic 0.5% Ophth Drops) 1 drops EACHEYE BID WILLIE Last Admin: 04/16/18 09:15 Dose: 1 drops Aspirin [Children's Aspirin] 81 mg PO DAILY 09/15/13 Simvastatin [Zocor] 20 mg PO QPM 09/15/13 Atenolol 25 mg PO DAILY 04/13/18 Timolol 0.5% Ophth Drops [Timoptic 0.5% Ophth Drops] 1 drops EACHEYE BID 04/13/18 Objective - Vital Signs/Intake & Output Reviewed Vital Signs: Yes Vital Signs: Vital Signs x48h Temp Pulse Pulse Pulse Pulse Resp BP 04/16/18 12:31 36.9 C 67 28 H 160/85 H 04/16/18 09:57 86 89 86 04/16/18 09:00 36.3 C L 58 L 28 H 157/76 H 04/16/18 06:19 61 64 62 BP BP BP Pulse Ox 04/16/18 12:31 94 04/16/18 09:57 166/62 H 163/77 H 169/92 H 04/16/18 09:00 92 04/16/18 06:19 125/55 L 140/61 H 134/64 H Intake & Output: Intake & Output 04/13/18 04/14/18 04/15/18 04/16/18 23:59 23:59 23:59 23:59 Intake Total 3363.334 4060.000 3522 1921.667 Output Total 800 1260 1575 500 Balance 2563.334 2800.000 1947 1421.667 - Objective General Appearance: positive: No acute distress, Alert, Other (Elderly white male, slender, watching TV.) Eyes Bilateral: positive: PERRL, EOMI ENT: positive: Other (Partially edentulous) Neck: positive: No JVD. negative: Stiff neck, Carotid bruit Respiratory: positive: Chest non-tender. negative: Wheezes, Rales, Rhonchi Cardiovascular: positive: Regular rate & rhythm, Bradycardia (Drops into the 50s at times), Systolic murmur. negative: Gallop/S4, Friction rub Abdomen: positive: Non-tender, No organomegaly, Nml bowel sounds, No distention Skin: positive: Warm, Dry, Pallor Extremities: positive: Non-tender, No pedal edema Neurologic/Psychiatric: positive: Oriented x3, CN's nml (2-12), Motor nml - Lab Results Fish Bones: 04/16/18 05:30 04/16/18 05:30 Other Labs: Lab Results x24hrs 04/16/18 04/16/18 04/15/18 Range/Units 05:30 05:30 21:30 WBC 3.5 L (4.8-10.8) x10^3/uL RBC 3.40 L (4.70-6.10) 10^6/uL Hgb 11.0 L (14.0-18.0) g/dL Hct 31.8 L (42.0-52.0) % MCV 93.4 (80.0-94.0) fL MCH 32.3 H (27.0-31.0) pg MCHC 34.6 (32.0-36.0) g/dL RDW 15.0 (12.0-15.0) % Plt Count 161 (130-450) 10^3/uL MPV 8.2 (7.4-11.4) fL Neut # (Auto) 1.1 L (1.5-6.6) 10^3/uL Lymph # (Auto) 1.8 (1.5-3.5) 10^3/uL [place] # (Auto) 0.6 (0.0-1.0) 10^3/uL Eos # (Auto) 0.0 (0.0-0.7) 10^3/uL Baso # (Auto) 0.0 (0.0-0.1) 10^3/uL Absolute Nucleated RBC 0.01 x10^3/uL Nucleated RBC % 0.2 /100WBC Sodium 132 L (135-145) mmol/L Potassium 3.4 L (3.5-5.0) mmol/L Chloride 101 (101-111) mmol/L Carbon Dioxide 24 (21-32) mmol/L Anion Gap 7.0 (6-13) BUN 6 (6-20) mg/dL Creatinine 0.4 L (0.6-1.2) mg/dL Estimated GFR (MDRD) 203 (>89) Glucose 122 H (70-100) mg/dL Calcium 7.9 L (8.5-10.3) mg/dL Magnesium 1.6 L (1.7-2.8) mg/dL Last Dose Date 04-14-18 Last Dose Time 2332 Vancomycin Trough 6.8 L (10.0-20.0) ug/mL ABX Reporting Has patient been on IV antibiotics over the past 48 hours?: No Assessment/Plan - Problem List (1) Syncope Impression: Presented as severe back pain. Got up to stretch. Walk to the kitchen, warmed up his coffee, and as he was standing to stretch out his back, he had a syncopal episode. No prodrome. He woke up on the floor. No trauma. Called his [facility] immediately. While he was lying there he was able to drink the Ensure that he had taken out of the refrigerator. The patient was orthostatic 04/13 on admission with drop in systolic BP >20 mmHg with standing. 04/14 postural VS show improvement, after hydration overnight. For the last 48 hours 130's to 160's systolic. Cranky. No cigs or alcohol for 4 days now. Trops were neg. Echo has a LVEF 60-65%, no aortic stenosis, mod abnml Right heart pressures at 55 mmHg RVSP PT and OT eval: Pt. is a pleasant, cooperative 88 yo. M w/SIRS, who presents w/decreased independence w/his transfers and walking at this time; he will need continued PT in the hospital working on progression of functional mobility toward independent living at his home; he may need stay at SNF after his hospital d/c to continue working on strengthening and gait. Recommend transport via w/c van to SNF. If pt. progressess to meet his goals he may be OK to return home w/possible f/u PT I suspect the patient may need more assistance at home than just [employer] deliveries for dinner daily. Daughter will be hiring in home support. She will pick him up after 11 am tomorrow. I will discharge with Home Health for PT/OT. (2) Elevated lactic acid level Assessment/Plan: No obvious source of an infection. Possibly elevated due to dehydration. Continued empiric iv antibiotics for 48 hours and blood/urine cultures negative. Stopped IV abx especially since he has a lot of diarrhea yesterday and diarrhea improved. (3) Dehydration Assessment/Plan: patient admits to Poor po intake with ~4 oz scotch a day Now with diarrhea but that has slowed down. Stop iv hydration today Nutrition assessed for malnutrition and suggest dietary changes:pt with out wt loss (wt 76 kg in 2016 now 76 kg). uses MOW at home and drinks one can of Ensure a day. stated he didn't like his food choices. certified ophthalmic assistant and RDN working with pt to find foods he might like. supportive care. would remove PPI if not medically necessary. (4) Rheumatoid arthritis Assessment/Plan: It is unclear if he takes Enbrel currently or not. Asked Pharmacy to clarify and he hasnt filled it for >6 months. Pt has no complaints of arthritic pain today but everything does hurt. (5) HTN (hypertension) Assessment/Plan: The Atenolol was on hold, since his EKG showed an ectopic atrial rhythm along with a marked first degree block, which could have been the cause of syncope, if he had a higher degree of heart block. No recheck of his rhythm with an EKG but continued on telemetry to monitor his rhythm, especially while he is starting to ambulate with PT. Tele shows missy 1st degree AVB and PAC's. mechanical test technician read it as afib. Repeat EKG is NSR w PAC's and 1st degree AVB not afib. (6) Leukopenia Assessment/Plan: Unclear etiology; possibly bone marrow suppression from Enbrel, or due to poor ability to mount a WBC response to huge infection at elderly age (but he does not appear toxic), or from unknown bone marrow malignancy. Continue to monitor CBC daily. Qualifiers: Qualified Code(s): R55 - Syncope and collapse
[2018-04-17] MEDS: SODIUM CHLORIDE FLUSH 0.9% 10 ML SYRINGE IVP SCH ×2 (01:19→09:10)
[2018-04-17 08:08] VITALS: BP 158/84
[2018-04-17] MEDS: FAMOTIDINE 20 MG TABLET PO SCH (09:08)
[2018-04-17] MEDS: ASPIRIN CHEW 81 MG TABLET PO SCH (09:08)
[2018-04-17] MEDS: SACCHAROMYCES BOULARDII 250 MG CAPSULE PO SCH (09:09)
[2018-04-17] MEDS: MULTIVITAMIN W/MINERALS TABLET PO SCH (09:09)
[2018-04-17] MEDS: TAMSULOSIN 0.4 MG CAPSULE PO SCH (09:09)
[2018-04-17] MEDS: TIMOLOL 0.5% OPHTH DROPS EACHEYE SCH (09:10)
[2018-04-17] MEDS: POLYETHYLENE GLYCOL 3350 17 GM PACKET PO SCH (09:10)
--- NOTE | 2018-04-17 11:01 | Discharge Plan ---
Discharge Plan Disposition: Home Health Service Condition: Fair Prescriptions: Multivitamin W/Minerals [Theragran M] 1 tab PO DAILYWM #30 tablet Tamsulosin [Flomax] 0.4 mg PO DAILY #30 capsule Diet: Regular Activity Restrictions: Additional Comments (use a walker if leaves the house for balance) Shower Restrictions: No Driving Restrictions: Yes (no driving ) Additional Instructions or Follow Up instructions: You were placed in the hospital because you had suddenly passed out after stretching your back. When you passed out you had no warning that you were so g to do this. For doctors that means you may have had a possible block in your heart rhythm, or a seizure. However we found none of those things. We also treated you for severe infection for a couple of days wondering if that was the cause of your passing out. But after 2 days all of your blood cultures and urine cultures were negative. The antibiotics were giving you diarrhea so we stopped the antibiotics and you have done just fine. Overall, we think that you are a person who is not eating well, drinks just a little bit too much scotch, and may have been dehydrated with blood pressure being low when you stood up. We strongly recommend that you get help in your house to remain independent in your home. You will get to the point that you will need 24 7 care if you do not take care of yourself. We have asked a home health nurse and physical therapist to see you in your home. We would like to follow through with you getting exercises. Again all of this is an effort to make sure you stay strong, independent, and be able to stay in your own home. Please see your primary care provider in the next 2-3 weeks. You used to see Dr. Staton and he is no longer in the office. You may have been reassigned to a different provider and you can see that provider. No Smoking: If you smoke, Please STOP! Call for help.
--- NOTE | 2018-04-20 08:10 | DISCHARGE SUMMARY ---
Physician: Laila Maya MD DATE OF ADMISSION: 04/13/2018 DATE OF DISCHARGE: 04/17/2018 DISCHARGE DIAGNOSES 1. Syncope. 2. Alcohol abuse. 3. Anorexia. 4. Elevated lactic acid. 5. Dehydration. 6. Rheumatoid arthritis. 7. Hypertension. 8. Leukopenia. DISCHARGE MEDICATIONS 1. Aspirin 81 mg a day. 2. Atenolol 25 mg a day. 3. Zocor 20 mg a day. 4. Timolol ophthalmic solution 1 drop each eye daily. 5. Multivitamin with minerals daily. 6. Flomax 0.4 mg daily. PRINCIPAL PROCEDURES 1. Chest x-ray, no evidence of active cardiopulmonary process. 2. Abdomen and pelvis CT angiogram, severe atherosclerosis of the aorta and its branches. 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 No dissection. Three bullae left lower lobe. Stable moderate right hemidiaphragm elevation. Three-vessel coronary artery atherosclerosis seen. Hypoattenuating lesions in the liver. The largest is too small to be definitely characterize. Common bile duct measures up to 10 mm, but tapers normally. He has colonic interposition. Small and large bowel normal in caliber. Severe colonic diverticulosis. Mild rectal wall thickening similar to 2014 CT. Evaluation of the pelvis is degraded by metallic streak artifact. Degenerative disk disease in the lumbar spine. Compression deformity of L1 and L2 that is stable. 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 Bone island right inferior pubic ramus. 3. Angiography CT of chest, abdomen and pelvis. No pulmonary embolism. No aortic aneurysm, dissection, or penetrating atherosclerotic ulcer. 4. Blood cultures negative after 5 days. 5. Urine culture, no growth. 6. Echocardiogram with overall left ventricular systolic function normal with an ejection fraction of 60-65%. Right ventricle normal in size and function. Mild tricuspid regurgitation, mildly abnormal right heart pressures, right ventricular systolic pressure at rest is 43 mmHg. HOSPITAL COURSE: He is an 88-year-old man who lives in his own home. He has rheumatoid arthritis, COPD, and smokes. He has had falls with hip fractures, and he has had a history of alcohol withdrawal in the past. He continues to drink approximately 4 large scotches a night. He stopped taking his Enbrel probably 6 months ago. He woke up on the day of admission having back pain, which he usually gets due to his rheumatoid arthritis. He got up to stretch out his back, walked to the kitchen. As he was warming his coffee, he got something out of the refrigerator, which was Ensure to drink. He was standing there and decided to stretch out his back and while he was doing that, had a syncopal episode. There is no prodrome of diaphoresis, clammy feeling or palpitations. He woke up on the floor, did not have any trauma. He called his [facility] immediately, which was on his body. While lying there waiting for EMS to come, he decided to drink his Ensure that he was holding on to. He denied any chest pain. The coolness on the floor relieved his back pain and he has not had any back pain since coming into the hospital. The paramedics were able to come to the door because he keeps it unlocked for this very happenstance, and they put him in the gurney, and they brought him to the emergency room. He remembers having a syncopal episode about 4 years ago when he was taking off his shirt, reaching over his head and then without warning, had syncope. At that time, he did hit the back of his head and had a laceration, but never came to the hospital to seek medical attention for it. Prior to getting up today, he has not been ill. There has been no fever, cough, urinary symptoms or diarrhea. The above radiology studies were noted in the emergency room. There was concern of an aortic aneurysm with rupture because of the back pain. There is no pulmonary emboli, and essentially his radiological studies were negative. However, lactic acid was 3.3. Troponin was negative. Hemoglobin and hematocrit were stable. Because of his elevated lactic acid, he was presumed to have possible infection and was treated with empiric IV antibiotics. In retrospect, most likely his lactic acid was elevated because of dehydration. Once we really sat down and got his history, we realized he was probably drinking too much, and not eating very much. Lactic acid went down to 1.6 four hours later and was 1.1 the day after. Echocardiogram was done to make sure he did not have aortic stenosis and none was found. Blood pressure during his stay remained stable. He was in the 150s to 160s at times, and the lowest he was 118/76. On the day of discharge, he was 158/84. Rheumatoid arthritis joint deformity was evident on physical examination, but he was adamant that he was not going to go back on his Enbrel. He found no use for it. 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 Leukopenia was noted. It stayed stable throughout his stay. He may have an early bone marrow dyscrasia versus late effects of his Enbrel, but he does not want to be referred for evaluation. He was on telemetry and he was found to have an ectopic atrial rhythm at times with first degree AV block, but no second or third-degree block. At no point was there is a third-degree block causing syncope. Once his blood cultures were negative, antibiotics were stopped. The patient was seen by Physical Therapy several times because of his deconditioning and weakness. Initially, he was quite cranky and refused to work with Physical Therapy. In the end, he did work with him because we were told him that he could not leave until he shows that he was able to be discharged to home. He was seen for 15 minutes on the day of discharge. He could sit at the bedside and can stand with standby assist and holding onto the walker. He can walk 100 feet using a front-wheeled walker and demonstrated even steps. He was able to demonstrate adequate balance and turning in front of the recliner. However, he did have decreased ability toward the end of his turn and almost began to fall. He was educated on safety, awareness and to use his walker. He was warned to make sure he stood still, waited for his balance to be stable before he turn to get in bed or chair. He was to avoid walking and unload areas, using urinal at bedside at nighttime, and physical therapist did recommend home health physical therapy for continued balance and gait. It was really felt that he might benefit from having longterm facility physical therapy because of a Tinetti balance gait assessment at with high risk for falling, but he does not want to go to longterm facility. As such his daughter is making arrangements. She will be hiring someone hopefully come in 2 hours out of the day to make sure he is taking his medicines, staying stable. I am discharging him with home health for bath aide, physical therapy. I have asked him to stop drinking and he told me that he will not. PHYSICAL EXAMINATION VITAL SIGNS: On the day of discharge, temperature was 36.3, pulse was 78. Orthostatics were done. Supine, he was 158/84, standing 140/67, sitting he was 137/73. His respirations were 18, and he had 93% oxygen saturation on room air. GENERAL: He is a slender, almost cachectic white male. NECK: Shotty neck adenopathy is present. Protuberant spinous processes because of the thinness evident on lung exam. LUNGS: Clear, without increased respiratory effort and he did not have crackles, rhonchi or wheezing. HEART: PMI was a thumping irregular rate and rhythm. Systolic ejection murmur was present. ABDOMEN: The abdomen was soft, nontender without organomegaly and normal bowel sounds. EXTREMITIES: His hands and feet were notable for rheumatoid arthritis deformity with joints of the metacarpal region and metatarsal region. Wrist had some mild deformity as well. He did not have clubbing, cyanosis or edema. Greater than 30 minutes was spent in coordinating discharge. cc: Sherice Dhaliwal MD TD: 04/18/2018 18:56 MTDD
== END 2018-04-17 12:12 | disposition home health service (06) | DRG 312 ==
LOC: EDUNIT# → ED 09:07 → MS2 13:47
PROVIDERS: ADMIT Internal Medicine; ATTEND Specialist
DX: R00.0 Tachycardia, unspecified (principal); R74.0 Nonspecific elevation of levels of transaminase and lactic acid dehydrogenase [LDH]; I95.1 Orthostatic hypotension; K52.1 Toxic gastroenteritis and colitis; K55.1 Chronic vascular disorders of intestine; E86.0 Dehydration; F17.200 Nicotine dependence, unspecified, uncomplicated; I49.1 Atrial premature depolarization; Z96.642 Presence of left artificial hip joint; R33.9 Retention of urine, unspecified; F10.10 Alcohol abuse, uncomplicated; R63.0 Anorexia; M06.9 Rheumatoid arthritis, unspecified; T39.4X6A Underdosing of antirheumatics, not elsewhere classified, initial encounter; Z91.128 Patient's intentional underdosing of medication regimen for other reason; D72.819 Decreased white blood cell count, unspecified; I44.0 Atrioventricular block, first degree; T36.1X5A Adverse effect of cephalosporins and other beta-lactam antibiotics, initial encounter; T36.8X5A Adverse effect of other systemic antibiotics, initial encounter; T37.3X5A Adverse effect of other antiprotozoal drugs, initial encounter; Y92.230 Patient room in hospital as the place of occurrence of the external cause; I49.8 Other specified cardiac arrhythmias; I10 Essential (primary) hypertension; I70.0 Atherosclerosis of aorta; I72.3 Aneurysm of iliac artery; I25.10 Atherosclerotic heart disease of native coronary artery without angina pectoris; M51.36 Other intervertebral disc degeneration, lumbar region; M47.9 Spondylosis, unspecified; J44.9 Chronic obstructive pulmonary disease, unspecified; F17.210 Nicotine dependence, cigarettes, uncomplicated; Z96.643 Presence of artificial hip joint, bilateral; Z66 Do not resuscitate; Z79.82 Long term (current) use of aspirin; Z79.899 Other long term (current) drug therapy; Z91.14 Patient's other noncompliance with medication regimen; Z91.81 History of falling; Z68.23 Body mass index [BMI] 23.0-23.9, adult
CPT/HCPCS: 36415; 71045; 71275; 74174; 80048; 80053; 80202; 81001; 81003; 83605; 83690; 83735; 84484; 85025; 85610; 85651; 87040; 87086; 93005; 93306; 96360; 96361; 96365; 99284

== ENCOUNTER 2019-05-14 22:36 | Outpatient (CLI) | payer MEDICARE, OTHER | END 2019-05-14 22:37 | disposition EMS.NT | LOC: EMS 22:36 | PROVIDERS: ATTEND Surgery | DX: Z03.89 Encounter for observation for other suspected diseases and conditions ruled out (principal) ==

== ENCOUNTER 2019-06-02 04:16 | Outpatient (CLI) | payer MEDICARE, OTHER | END 2019-06-02 04:17 | disposition critical access hospital (66) | LOC: EMS 04:16 | PROVIDERS: ATTEND Surgery | DX: S01.01XA Laceration without foreign body of scalp, initial encounter (principal); R42 Dizziness and giddiness; W18.39XA Other fall on same level, initial encounter; Y92.002 Bathroom of unspecified non-institutional (private) residence as the place of occurrence of the external cause | CPT/HCPCS: A0425; A0429 ==

== ENCOUNTER 2019-06-02 04:29 | Emergency (ER) | payer MEDICARE, OTHER ==
[2019-06-02] MEDS ORDERED: TETANUS/DIPHTHERIA/PERTUSSIS 0.5 ML SYRINGE IM ONE (04:37)
--- NOTE | 2019-06-02 05:24 | CT Report ---
Reason: fall head pain Procedure Date: 06/02/2019 Accession Number: [id number] / [id number] Procedure: CT - HEAD WO CPT Code: Final Report FULL RESULT: EXAM: CT HEAD EXAM DATE: 06/02/2019 05:08 AM. CLINICAL HISTORY: Fall head pain. COMPARISON: HEAD W/O 09/15/2013 2:09 AM. TECHNIQUE: Multiaxial CT images were obtained from the foramen magnum to the vertex. Reformats: Sagittal and coronal. IV contrast: None. In accordance with CT protocol optimization, one or more of the following dose reduction techniques were utilized for this exam: automated exposure control, adjustment of mA and/or KV based on patient size, or use of iterative reconstructive technique. FINDINGS: Parenchyma: No intraparenchymal hemorrhage. No evidence of mass, midline shift, or CT findings of acute infarction. Valdes-white differentiation is distinct. Mild chronic microangiopathic white matter changes are evident. Extraaxial Spaces: Normal for age. No subdural or epidural collections identified. Ventricles: The ventricles and cortical sulci are enlarged, consistent with age-related tissue loss. Sinuses and orbits: Imaged paranasal sinuses, orbits, and mastoids show no significant abnormality. Bones: No evidence of fracture or calvarial defect. Other: Right posterior scalp hematoma. IMPRESSION: Generalized age-related cortical atrophic changes without evidence of acute intracranial abnormality. [facility]
--- NOTE | 2019-06-02 05:30 | CT Report ---
Reason: fall, neck pain Procedure Date: 06/02/2019 Accession Number: [id number] / [id number] Procedure: CT - CERVICAL SPINE WO CPT Code: Final Report FULL RESULT: EXAM: CT CERVICAL SPINE WITHOUT CONTRAST DATE: 06/02/2019 05:08 AM. HISTORY: Fall, neck pain. COMPARISONS: None. TECHNIQUE: Thin-section axial images were acquired of the cervical spine without contrast. Post-processing: Coronal and sagittal reformats. Other: None. In accordance with CT protocol optimization, one or more of the following dose reduction techniques were utilized for this exam: automated exposure control, adjustment of mA and/or KV based on patient size, or use of iterative reconstructive technique. FINDINGS: Alignment: No scoliosis or spondylolisthesis. Bones: No fracture or bone lesion. Interspace Levels/Facets: C1-C2: Within normal limits. C2-C3: Unremarkable. C3-C4: Unremarkable. C4-C5: Narrowed. Right facet hypertrophy. C5-C6: Narrowed. Bilateral facet hypertrophy. C6-C7: Narrowed. Bilateral facet hypertrophy. C7-T1: Narrowed. Facets within normal limits. Musculature: Normal for age. Other: The paravertebral and prevertebral soft tissues are unremarkable. The lung apices are clear. Atherosclerotic calcifications are seen in the carotid arteries. 1.1 cm hypoattenuating nodule in the left thyroid lobe. IMPRESSION: No evidence of acute fracture or subluxation. RAD[facility]
--- NOTE | 2019-06-02 06:08 | ED Physician Documentation ---
PD HPI HEAD INJURY - Stated complaint Stated Complaint: FALL/ HEAD INJURY - Chief complaint Chief Complaint: Trauma Hd/Nk - History obtained from History obtained from: Patient - History of Present Illness Mechanism of head injury: Fell Where head injury occurred: Home Timing - onset: Today (just prior to arrival) Severity Comments: moderate scalp laceration, head pain over the wound Location of injury: Back Quality of pain: Pain Associated symptoms: Other (no LOC, mild neck pain, no nausea or vomiting, no seizures, no drainage or paresthesias.) Symptoms worsen with: Palpation Contributing factors: Other (pt is not anticoagulated or intoxicated.) Similar symptoms before: Has not had sx before Recently seen: Not recently seen - Treatment prior to arrival Treatment prior to arrival: c-collar placed by EMS, gauze placed over the wound - Additional information Additional information: Pt got up quickly after going to the bathroom and felt dizzy fell back and hit is head. This happened at home. reports bleeding from the back of his head and some neck pain. Review of Systems Ten Systems: 10 systems reviewed and negative Constitutional: reports: Reviewed and negative Eyes: reports: Reviewed and negative Ears: reports: Reviewed and negative Nose: reports: Reviewed and negative Cardiac: reports: Reviewed and negative Respiratory: reports: Reviewed and negative GI: reports: Reviewed and negative Skin: reports: Reviewed and negative Musculoskeletal: reports: Neck pain Neurologic: reports: Head injury Psychiatric: reports: Reviewed and negative Endocrine: reports: Reviewed and negative Immunocompromised: reports: Reviewed and negative PD PAST MEDICAL HISTORY - Past Medical History Past Medical History: Yes Cardiovascular: Hypertension, High cholesterol Endocrine/Autoimmune: None HEENT: None Psych: None Musculoskeletal: Rheumatoid arthritis - Past Surgical History Past Surgical History: Yes General: Appendectomy Ortho: Hip replacement HEENT: Cataracts, Detached retina repair, Tonsil/Adenoidectomy - Present Medications Home Medications: Ambulatory Orders Medication Instructions Recorded Confirmed Aspirin [Children's Aspirin] 81 mg PO DAILY 09/15/13 04/13/18 Simvastatin [Zocor] 20 mg PO QPM 09/15/13 04/13/18 Atenolol 25 mg PO DAILY 04/13/18 04/13/18 Timolol 0.5% Ophth Drops [Timoptic 1 drops EACHEYE BID 04/13/18 04/13/18 0.5% Ophth Drops] Multivitamin W/Minerals [Theragran 1 tab PO DAILYWM #30 tablet 04/17/18 M] Tamsulosin [Flomax] 0.4 mg PO DAILY #30 capsule 04/17/18 - Allergies Allergies/Adverse Reactions: Allergies Allergy/AdvReac Type Severity Reaction Status Date / Time gold sodium thiomalate Allergy Intermediate Rash Verified 04/13/18 09:16 - Social History Does the pt smoke?: Yes Smoking Status: Current every day smoker Does the pt drink ETOH?: Yes Does the pt have substance abuse?: No - Immunizations Immunizations are current?: Yes - POLST Patient has POLST: Yes PD ED PE NORMAL - Vitals Vital signs reviewed: Yes - General General: Alert and oriented X 3, No acute distress, Well developed/nourished - HEENT HEENT: Atraumatic, PERRL, EOMI, Ears normal, Moist mucous membranes, Pharynx benign - Neck Neck: Supple, no meningeal sign - Cardiac Cardiac: RRR - Respiratory Respiratory: No respiratory distress, Clear bilaterally - Abdomen Abdomen: Soft, Non tender, Non distended - Male Male : Deferred - Rectal Rectal: Deferred - Derm Derm: Normal color, Warm and dry, No rash - Extremities Extremities: No deformity, No tenderness to palpate, Normal ROM s pain, No edema, No calf tenderness / cord - Neuro Neuro: Alert and oriented X 3, pipe maker 2-12 intact, No motor deficit, No sensory deficit, Normal speech Eye Opening: Spontaneous Motor: Obeys Commands Verbal: Oriented GCS Score: 15 - Psych Psych: Normal mood, Normal affect PD ED PE EXPANDED - Derm Derm: Laceration(s) (5cm R parietal scalp laceration ) Results - Vitals Vitals: Vital Signs - 24 hr 06/02/19 06/02/19 06/02/19 04:30 05:16 06:18 Temperature 36.6 C Heart Rate 71 72 71 Respiratory 15 15 17 Rate Blood Pressure 180/91 H 152/92 H 160/90 H O2 Saturation 98 96 96 Oxygen O2 Source [] Nasal cannula O2 Source [] Nasal cannula O2 Source Room air - Rads (name of study) CT head Radiology: Final report received, See rad report (negative head CT) Cervical spine CT Radiology: Final report received, See rad report (negative for acute changes ) Procedures - Laceration (location) Scalp right Length in cm: 5 Wound type: Linear Neurovascular status: Sensory intact Wound Preparation: Irrigated copiously NS, Wound explored Skin layer closure: [place] (4) Other: Patient tolerated well, No complications, Dressing applied, Tetanus booster given Complexity: Simple PD MEDICAL DECISION MAKING - ED course Complexity details: reviewed results, re-evaluated patient, considered differential, d/w patient ED course: ddx- closed head injury, ICH, SAH, subdural, Cspine injury, neck sprain 89 y/o M with with GLF from standing when he stood up quickly and got dizzy today. Now has steady gait and denies dizziness or lightheadedness. Has a head laceration, and neck pain, otherwise well appearing. Neuro intact. GCS15, CT head and Cspine negative. Normal coordination. Repaired laceration in the ED with shirley. Pt ambulating [facility] ED and asymptomatic. Advised pt regarding home care of his shirley and f/u for removal Discussed return precautions if recurrent dizziness or new concerning symptoms. Departure - Departure Disposition: 01 Home, Self Care Clinical Impression: Closed head injury Qualifiers: Encounter type: initial encounter Qualified Code(s): S09.90XA - Unspecified injury of head, initial encounter Scalp laceration Qualifiers: Encounter type: initial encounter Qualified Code(s): S01.01XA - Laceration without foreign body of scalp, initial encounter Condition: Stable Record reviewed to determine appropriate education?: Yes Instructions: ED Laceration Scalp Stitch Or Stap Follow-Up: your, doctor [Other] (for staple removal in 5 to 7 days (or this Emergency Department)) Comments: Your Head CT and Cervical Spine CT were both negative for acute injury. Your scalp laceration was cleaned and closed with shirley. Apply neosporin or bacitracin over the counter twice a day until shirley are removed. Discharge Date/Time: 06/02/19 07:15
[2019-06-02 06:19] VITALS: BP 160/90
== END 2019-06-02 07:15 | disposition home or self-care (01) ==
LOC: EDUNIT# → ED 04:29
DX: S01.01XA Laceration without foreign body of scalp, initial encounter (principal); S09.90XA Unspecified injury of head, initial encounter; M54.2 Cervicalgia; W18.30XA Fall on same level, unspecified, initial encounter; Y93.89 Activity, other specified; Y92.002 Bathroom of unspecified non-institutional (private) residence as the place of occurrence of the external cause; Z23 Encounter for immunization; R42 Dizziness and giddiness; I10 Essential (primary) hypertension; Z79.82 Long term (current) use of aspirin; F17.200 Nicotine dependence, unspecified, uncomplicated
CPT/HCPCS: 12002; 70450; 72125; 90471

== ENCOUNTER 2019-06-03 11:57 | Outpatient (CLI) | payer MEDICARE, OTHER | END 2019-06-03 11:58 | disposition critical access hospital (66) | LOC: EMS 11:57 | PROVIDERS: ATTEND Surgery | DX: R41.0 Disorientation, unspecified (principal); R47.81 Slurred speech; R51 Headache | CPT/HCPCS: A0425; A0429 ==

== ENCOUNTER 2019-06-03 12:09 | Inpatient (IN) | payer MEDICARE, OTHER ==
--- NOTE | 2019-06-03 12:22 | ED Physician Documentation ---
History of Present Illness - Stated complaint Stated Complaint: CVA - Additonal information Additional information: This is an 89-year-old male with a history arthritis, hypertension, tobacco use, who presents with now resolved speech changes. Patient fell on Saturday and he had a CT scan of his head which did not show any acute intracranial abnormality, but did have a laceration that required shirley on his right posterior scalp. He yesterday around midday began having a headache behind his right eyes/congregation region, and also had episode of 2 hours were his speech was garbled. He denies any weakness or numbness. He is unsure if he had vision changes associated with this. His family was concerned about him, but he did not come into the hospital until today. His speech changes resolved completely after 2 hours yesterday, and he has been feeling fine today. EMS found him to be acting normally today, and patient currently denies complaints. He has never had a stroke/TIA. He is on aspirin but no other blood thinners or antiplatelet medications Review of Systems Constitutional: denies: Fever Eyes: denies: Loss of vision Cardiac: denies: Chest pain / pressure Respiratory: denies: Cough GI: denies: Abdominal Pain : denies: Dysuria Skin: denies: Rash Neurologic: denies: Generalized weakness Immunocompromised: denies: Immunocompromised PD PAST MEDICAL HISTORY - Past Medical History Cardiovascular: Hypertension, High cholesterol Endocrine/Autoimmune: None HEENT: None Psych: None Musculoskeletal: Rheumatoid arthritis - Past Surgical History Past Surgical History: Yes General: Appendectomy Ortho: Hip replacement HEENT: Cataracts, Detached retina repair, Tonsil/Adenoidectomy - Present Medications Home Medications: Ambulatory Orders Medication Instructions Recorded Confirmed Aspirin [Children's Aspirin] 81 mg PO DAILY 09/15/13 04/13/18 Simvastatin [Zocor] 20 mg PO QPM 09/15/13 04/13/18 Timolol 0.5% Ophth Drops [Timoptic 1 drops EACHEYE BID 04/13/18 04/13/18 0.5% Ophth Drops] Multivitamin W/Minerals [Theragran 1 tab PO DAILYWM #30 tablet 04/17/18 M] Tamsulosin [Flomax] 0.4 mg PO DAILY #30 capsule 04/17/18 Metoprolol Succinate [Toprol Xl] 12.5 mg PO DAILY #15 tablet 06/06/19 Midodrine 2.5 mg PO TIDWM #90 tablet 06/06/19 Thiamine [Vitamin B-1] 100 mg PO DAILY #30 tablet 06/06/19 - Allergies Allergies/Adverse Reactions: Allergies Allergy/AdvReac Type Severity Reaction Status Date / Time gold sodium thiomalate Allergy Intermediate Rash Verified 06/03/19 12:11 - Social History Does the pt smoke?: Yes Smoking Status: Current every day smoker Does the pt drink ETOH?: Yes Does the pt have substance abuse?: No - Immunizations Immunizations are current?: Yes - POLST Patient has POLST: Yes PD ED PE NORMAL - Vitals Vital signs reviewed: Yes - General General: Alert and oriented X 3 - HEENT HEENT: Other (Well approximated laceration in the posterior scalp with shirley in place, no redness no purulent drainage.) - Neck Neck: Supple, no meningeal sign - Cardiac Cardiac: RRR - Respiratory Respiratory: No respiratory distress, Clear bilaterally - Abdomen Abdomen: Non tender, Non distended - Extremities Extremities: Other (Arthritic changes without gross deformities.) - Neuro Neuro: Alert and oriented X 3, Other (Right pupil is 2 mm and react to light, left pupil is 4 to 5 mm and reactive to light. Vision is normal to counting fingers, and visual nolasco are intact to confrontation in all quadrants bilaterally. Patient has normal symmetry of his face, his sensation is intact over the trigeminal nerve, he is normal symmetric palate elevation and tongue protrusion. He has no drift of his arms, 5 out of 5 strength with hand squeeze finger abduction elbow flexion extension, ankle dorsiflexion and plantarflexion. He has no drift in his legs although his mobility in his left leg is somewhat limited by pain due to chronic arthritis. Sensation intact over all extremities. No dysmetria.) Results - Vitals Vitals: Oxygen O2 Source [With Activity] Nasal cannula O2 Source [Without Activity] Nasal cannula O2 Source Room air - Labs Labs: Laboratory Tests 06/03/19 06/03/19 06/03/19 12:39 12:39 12:39 WBC 4.4 L RBC 4.16 L Hgb 14.3 Hct 40.9 L MCV 98.3 H MCH 34.4 H MCHC 35.0 RDW 14.4 Plt Count 131 MPV 10.2 Neut # (Auto) 0.4 L* Lymph # (Auto) 3.2 [place] # (Auto) 0.8 Eos # (Auto) 0.0 Baso # (Auto) 0.0 Absolute Nucleated RBC 0.00 Total Counted Band Neuts % (Manual) Reactive Lymphs % (Man) Abnorm Lymph % (Manual) Nucleated RBC % 0.0 Neutrophils # (Manual) Lymphocytes # (Manual) Monocytes # (Manual) Eosinophils # (Manual) Basophils # (Manual) Differential Comment Platelet Estimate RBC Morph Micro Appear PT 12.0 INR 1.1 APTT 28.5 Sodium 132 L Potassium 3.8 Chloride 95 L Carbon Dioxide 26 Anion Gap 11.0 BUN 17 Creatinine 0.8 Estimated GFR (MDRD) 91 Glucose 113 H Calcium 8.8 Total Bilirubin 1.2 H AST 25 ALT 17 Alkaline Phosphatase 60 Total Protein 6.9 Albumin 3.4 Globulin 3.5 Albumin/Globulin Ratio 1.0 Triglycerides Cholesterol LDL Cholesterol, Calc VLDL Cholesterol HDL Cholesterol LDL/HDL Ratio Cholesterol/HDL Ratio Lipase 45 Vitamin B12 Folate Urine Color Urine Clarity Urine pH Ur Specific [place] Urine Protein Urine Glucose (UA) Urine Ketones Urine Occult Blood Urine Nitrite Urine Bilirubin Urine Urobilinogen Ur Leukocyte Esterase Urine RBC Urine WBC Ur Squamous Epith Cells Urine Bacteria Urine Casts Urine Culture Comments Ethyl Alcohol 06/03/19 06/03/19 06/04/19 12:39 19:15 05:15 WBC 5.2 RBC 4.24 L Hgb 14.4 Hct 41.9 L MCV 98.8 H MCH 34.0 H MCHC 34.4 RDW 14.2 Plt Count 139 MPV 10.5 Neut # (Auto) Not Reportable Lymph # (Auto) Not Reportable [place] # (Auto) Not Reportable Eos # (Auto) Not Reportable Baso # (Auto) Not Reportable Absolute Nucleated RBC Not Reportable Total Counted 100 Band Neuts % (Manual) 1 Reactive Lymphs % (Man) 50 Abnorm Lymph % (Manual) 0 Nucleated RBC % Not Reportable Neutrophils # (Manual) 0.4 L* Lymphocytes # (Manual) 4.3 H Monocytes # (Manual) 0.5 Eosinophils # (Manual) 0.0 Basophils # (Manual) 0.0 Differential Comment MANUAL DIFFERENTIAL Platelet Estimate NORMAL (130-450,000) RBC Morph Micro Appear NORMAL APPEARANCE PT INR APTT Sodium Potassium Chloride Carbon Dioxide Anion Gap BUN Creatinine Estimated GFR (MDRD) Glucose Calcium Total Bilirubin AST ALT Alkaline Phosphatase Total Protein Albumin Globulin Albumin/Globulin Ratio Triglycerides Cholesterol LDL Cholesterol, Calc VLDL Cholesterol HDL Cholesterol LDL/HDL Ratio Cholesterol/HDL Ratio Lipase Vitamin B12 Folate Urine Color YELLOW Urine Clarity CLEAR Urine pH 7.0 Ur Specific [place] 1.010 Urine Protein NEGATIVE Urine Glucose (UA) NEGATIVE Urine Ketones 15 H Urine Occult Blood TRACE-INTA Urine Nitrite NEGATIVE Urine Bilirubin NEGATIVE Urine Urobilinogen 1 (NORMAL) Ur Leukocyte Esterase NEGATIVE Urine RBC 0-5 Urine WBC 0-3 Ur Squamous Epith Cells RARE Squamous Urine Bacteria Rare Urine Casts 0-2 Hyaline Casts Urine Culture Comments NOT INDICATED Ethyl Alcohol < 5.0 06/04/19 06/04/19 05:15 05:15 WBC RBC Hgb Hct MCV MCH MCHC RDW Plt Count MPV Neut # (Auto) Lymph # (Auto) [place] # (Auto) Eos # (Auto) Baso # (Auto) Absolute Nucleated RBC Total Counted Band Neuts % (Manual) Reactive Lymphs % (Man) Abnorm Lymph % (Manual) Nucleated RBC % Neutrophils # (Manual) Lymphocytes # (Manual) Monocytes # (Manual) Eosinophils # (Manual) Basophils # (Manual) Differential Comment Platelet Estimate RBC Morph Micro Appear PT INR APTT Sodium 135 Potassium 3.8 Chloride 96 L Carbon Dioxide 30 Anion Gap 9.0 BUN 13 Creatinine 0.7 Estimated GFR (MDRD) 106 Glucose 93 Calcium 8.8 Total Bilirubin AST ALT Alkaline Phosphatase Total Protein Albumin Globulin Albumin/Globulin Ratio Triglycerides 84 Cholesterol 138 LDL Cholesterol, Calc 72 VLDL Cholesterol 17 HDL Cholesterol 49 L LDL/HDL Ratio 1.5 Cholesterol/HDL Ratio 2.8 Lipase Vitamin B12 262 Folate 16.82 Urine Color Urine Clarity Urine pH Ur Specific [place] Urine Protein Urine Glucose (UA) Urine Ketones Urine Occult Blood Urine Nitrite Urine Bilirubin Urine Urobilinogen Ur Leukocyte Esterase Urine RBC Urine WBC Ur Squamous Epith Cells Urine Bacteria Urine Casts Urine Culture Comments Ethyl Alcohol - Rads (name of study) CT head Wo Radiology: Other (No acute intracranial hemorrhage or mass-effect. Posterior ri ght scalp hematoma and laceration, generalized parenchymal volume loss which is unchanged) PD MEDICAL DECISION MAKING - ED course Complexity details: considered differential (Intracranial hemorrhage, stroke, TIA, electrolyte abnormality) ED course: On arrival patient is hypertensive, vital signs otherwise unremarkable. He is alert and oriented he has no focal strength or sensation deficits, no facial asymmetry, but he does have anisocoria his pupils. Labs are drawn, and CT scan of his head was obtained and is unremarkable. Labs unrevealing. He is hypertensive and has multiple CVA risk factors. It is unclear if his aniscoria is chronic or not. I am concerned for TIA, he has an ABCD2 score of 5, so he was admitted to the hospital for further evaluation, risk factor modification, and management. Symptoms would be quite atypical for concussion. Pt is in agreement with plan. Departure - Departure Disposition: ED Place in Observation Clinical Impression: TIA (transient ischemic attack) Condition: Stable Discharge Date/Time: 06/03/19 16:36
[2019-06-03 12:45] LABS: BASOPHILS % (AUTO) 0.5 %; EOSINOPHILS % (AUTO) 0.2 %; HGB - HEMOGLOBIN 14.3 g/dL (14.0-18.0); LYMPHOCYTES # (AUTO) 3.2 10^3/uL (1.5-3.5); LYMPHOCYTES % (AUTO) 72.4 %; MEAN CORPUSCULAR HEMOGLOBIN 34.4 pg (27.0-31.0); MEAN CORPUSCULAR VOLUME 98.3 fL (80.0-94.0); MEAN PLATELET VOLUME 10.2 fL (7.4-11.4); MONOCYTES # (AUTO) 0.8 10^3/uL (0.0-1.0); MONOCYTES % (AUTO) 17.2 %; NEUTROPHILS % (AUTO) 9.7 %; PLT - PLATELET COUNT 131 10^3/uL (130-450); RED BLOOD COUNT 4.16 10^6/uL (4.70-6.10); RED CELL DISTRIBUTION WIDTH 14.4 % (12.0-15.0); WHITE BLOOD COUNT 4.4 x10^3/uL (4.8-10.8)
[2019-06-03 12:55] LABS: NEUTROPHILS # (AUTO) 0.4 10^3/uL (1.5-6.6)
[2019-06-03 13:10] LABS: ALBUMIN 3.4 g/dL (3.2-5.5); BILIRUBIN,TOTAL 1.2 mg/dL (0.2-1.0); CALCIUM 8.8 mg/dL (8.5-10.3); CREATININE 0.8 mg/dL (0.6-1.2); TOTAL PROTEIN 6.9 g/dL (6.7-8.2)
--- NOTE | 2019-06-03 13:22 | CT Report ---
Reason: Aniscoria, recent fall, resovled speech change Procedure Date: 06/03/2019 Accession Number: [id number] / [id number] Procedure: CT - HEAD WO CPT Code: Final Report FULL RESULT: EXAM: CT HEAD EXAM DATE: 06/03/2019 12:51 PM. CLINICAL HISTORY: Aniscoria, recent fall, resolved speech change. COMPARISON: HEAD W/O 06/02/2019 4:58 AM. TECHNIQUE: Multiaxial CT images were obtained from the foramen magnum to the vertex. Reformats: Sagittal and coronal. IV contrast: None. In accordance with CT protocol optimization, one or more of the following dose reduction techniques were utilized for this exam: automated exposure control, adjustment of mA and/or KV based on patient size, or use of iterative reconstructive technique. FINDINGS: Parenchyma: No intraparenchymal hemorrhage. No evidence of mass, midline shift, or CT findings of infarction. Valdes-white differentiation is distinct. Extraaxial Spaces: There is generalized parenchymal volume loss. No subdural or epidural hematoma. Ventricles: Normal in size and position. Sinuses and Orbits: Imaged paranasal sinuses, orbits, and mastoids show no significant abnormality. Bones: There are posterior right scalp shirley and scalp hematoma. Other: None. IMPRESSION: 1. Negative for intracranial acute hemorrhage and mass-effect. 2. Posterior right scalp hematoma and laceration. 3. Generalized parenchymal volume loss unchanged. RADIA
[2019-06-03 13:37] LABS: INR 1.1 (0.8-1.2)
[2019-06-03 13:44] LABS: PARTIAL THROMBOPLASTIN TIME 28.5 secs (24.9-33.3)
[2019-06-03] MEDS ORDERED: ACETAMINOPHEN 325 MG TABLET PO PRN (15:43)
[2019-06-03] MEDS ORDERED: SODIUM CHLORIDE FLUSH 0.9% 10 ML SYRINGE IVP PRN (15:43)
[2019-06-03] MEDS ORDERED: LORazepam 2 MG/ML VIAL IVP PRN (17:33)
[2019-06-03] MEDS: NICOTINE 14 MG PATCH TOP SCH (18:15)
--- NOTE | 2019-06-03 18:39 | MRI Report ---
Reason: TIA Procedure Date: 06/03/2019 Accession Number: [id number] / [id number] Procedure: MRI - Brain W/O CPT Code: Final Report FULL RESULT: EXAM: MRI BRAIN WITHOUT CONTRAST. EXAM DATE: 06/03/2019 05:36 PM. CLINICAL HISTORY: 89-year-old presenting with TIA-like symptoms. Evaluate for intracranial pathology. COMPARISON: HEAD W/O 06/03/2019 12:50 PM. HEAD W/O 06/02/2019 4:58 AM. TECHNIQUE: Multiplanar, multisequence T1-weighted and fluid-sensitive MR sequences of the brain were performed. Sequences optimized for routine evaluation. Other: None. IV Contrast: None. FINDINGS: Brain Volume: Normal for age. Parenchyma/Dura: No acute parenchymal hemorrhage, mass, or midline shift. There are old chronic lacunar infarcts involving the right cerebellum, left cerebellum, and left thalamus. There is mild bilateral areas of T2/FLAIR signal hyperintensity seen. No areas of restricted diffusion seen to suggest acute infarct. No abnormal areas of parenchymal hemosiderin deposition. Ventricles/Cisterns: No hydrocephalus. No abnormal extra-axial fluid collection or hemorrhage. Orbits: Changes of bilateral lens replacement. Sella [place]: The pituitary gland, cavernous sinuses, suprasellar cistern and optic chiasm are unremarkable. IAC: Symmetric and unremarkable. Vasculature: Normal signal flow void is seen in the major arterial structures at the skull base. Sinuses: Small left ethmoid air cell mucosal retention cyst versus polyp. Trace to small volume left mastoid effusion. Bones: No focal pathologic appearing marrow signal changes. Other: None. IMPRESSION: 1. No definite acute intracranial pathology seen; specifically, no acute infarct, acute intracranial hemorrhage, mass, hydrocephalus, or midline shift. 2. 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 Additional mild white matter changes that are nonspecific but may represent sequela of chronic small vessel ischemic disease. RADIA
[2019-06-03] MEDS: SODIUM CHLORIDE FLUSH 0.9% 10 ML SYRINGE IVP SCH (19:04)
[2019-06-03] MEDS: LIQUOR 50 ML BOTTLE PO SCH (19:04)
[2019-06-03 19:31] LABS: BILIRUBIN,URINE NEGATIVE (NEGATIVE); GLUCOSE, URINE (UA) NEGATIVE (NEGATIVE); KETONES,URINE (UA) 15 mg/dL (NEGATIVE); LEUKOCYTE ESTERASE, URINE NEGATIVE (NEGATIVE); NITRITE,URINE NEGATIVE (NEGATIVE); OCCULT BLOOD,URINE TRACE-INTA (NEGATIVE); PROTEIN,URINE NEGATIVE (NEGATIVE); UROBILINOGEN,URINE 1 (NORMAL) E.U./dL (NORMAL)
[2019-06-03 19:34] LABS: CLARITY,URINE CLEAR (CLEAR)
--- NOTE | 2019-06-03 19:45 | HISTORY & PHYSICAL EXAMINATION ---
DATE OF SERVICE: 06/03/2019 Physician: Luanne Levine MD HISTORY OF PRESENT ILLNESS: This is an 89-year-old white male with a history of hypertension, hyperlipidemia, COPD who continues to smoke half pack a day, has had several falls in the past for which he needed to call a [facility] to get paramedics. He also has a history of rheumatoid arthritis, neutropenia, BPH, glaucoma and ectropion of the eyes. Patient fell as he was standing up from the toilet and his "left leg gave out on him" and he fell backward hitting his right posterior head and was seen in the emergency room 2 days ago for this, had imaging and there were no fractures and he required 4 shirley. He was discharged from the ER. Yesterday, he had 2 hours where he had garbled speech and felt like he could not produce the words to speak. The family today urged him to come to the ER, which he did. There were no further episodes of speech complaints today, however. He does state that his left knee gives out on him often, ever since his left hip surgery, and the daughter in the room confirmed that he has fallen twice this month. Patient states he gets occasionally lightheaded before these falls. He is a drinker of alcohol, 4 to 5 liquor drinks per night, but does not think that he is intoxicated causing the falls. He is compliant with his medications. He denies any cardiopulmonary symptoms and states that he is not planning to quit smoking. PAST MEDICAL HISTORY 1. Hypertension. 2. Rheumatoid arthritis for which he was on Enbrel in the past and has stopped it as it "gave him no benefit". 3. Neutropenia. 4. COPD. 5. BPH. 6. Glaucoma. 7. Eye ectropion. ALLERGIES: GOLD, WHICH WAS GIVEN FOR TREATING RHEUMATOID ARTHRITIS REMOTELY. MEDICATIONS 1. Timolol eyedrops. 2. Flomax 0.4 mg daily. 3. Multivitamin daily. 4. Atenolol 25 mg daily. 5. Baby aspirin daily. 6. Simvastatin 20 mg every night. FAMILY HISTORY: No inherited diseases. SOCIAL HISTORY: The patient lives alone, he gets Meals on Wheels and bath aide and someone to clean his house. For ambulating, he uses a walker occasionally in the house. REVIEW OF SYSTEMS: A comprehensive review of system was performed and the pertinent positives are listed, the rest are negative. PHYSICAL EXAMINATION GENERAL: Elderly white male. He is in no distress, sitting in bed. VITAL SIGNS: Blood pressure 190/90, heart rate 86 in atrial fibrillation and later, he is in sinus rhythm with first-degree block at a rate of 54, afebrile, room air saturation 98%. HEENT: He has male pattern baldness. There is a clean laceration with shirley in the right occipital area. 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 He has poor dentition with many teeth missing. His oral mucosa is moist. NECK: No JVD in a vertical position. No carotid bruits. CHEST: Poor air movement. No wheezes or rales. No respiratory distress. HEART: Heart sounds are distant. No audible murmur. ABDOMEN: Soft, nontender. No organomegaly. EXTREMITIES: No clubbing, cyanosis or edema. Skin warm and dry. NEUROLOGIC: Grossly intact (only evaluated with him in his bed, the nurse reported he has poor balance). LABORATORY DATA: Normal electrolytes. Normal BUN and creatinine. Normal liver tests. Normal lipase. INR normal at 1.1. White blood count 4.4, hemoglobin 14.3, MCV 98, platelet count 130, neutrophil count is 0.4. Serum alcohol level was not detectable. IMAGING: Head CT showed no acute findings. EKG#1: Ectopic atrial rhythm, with inverted P waves diffusely, early R/S transition and RSR' in V1 and V2. EKG #2 shows: Sinus bradycardia at rate of 54 with first-degree AV block and the same RSR ' and early R/S transition. IMPRESSION/DIAGNOSES 1. Transient ischemic attack (TIA). 2. Recurrent falls. 3. Alcohol abuse. 4. Hypertension. 5. Rheumatoid arthritis. 6. Neutropenia. 7. Chronic obstructive pulmonary disease without exacerbation. 8. Benign prostatic hypertrophy. 9. Glaucoma history. 10. Smoker. PLAN: Place patient in Observation status, on telemetry, watching AFib burden. Continue with his beta mode and aspirin. Currently, his CHADS score equals 1 (age over 75). He would not be a candidate for anticoagulation due to the recurrent falls and alcohol abuse. Obtain an Echo to evaluate for both LV and RV function and for an intracardiac clot. Obtain cardiac Dopplers. Obtain a brain MRI to evaluate for a stroke. Nicotine patch ordered, but he declined this and states he is not planning to quit smoking. A CIWA protocol ordered with Ativan p.r.n. for alcohol withdrawal, plus order 1 alcoholic drink per evening to avoid alcohol withdrawal. Begin gentle hydration with banana bag IV fluids. Check orthostatic vital signs and PT and OT evaluations regarding his falls. CODE STATUS: DNR. DEEP VENOUS THROMBOSIS PROPHYLAXIS: SCDs. ATTESTATION: The patient is expected to be discharged or transferred to another facility within 96 hours: Yes. cc: Dr Jorge Rogers TD: 06/03/2019 18:47 [email or web address]
[2019-06-03 19:51] LABS: BACTERIA,URINE Rare /HPF (None Seen); CASTS, URINE 0-2 Hyaline Casts /LPF; RBC,URINE 0-5 /HPF (0-5); SQUAMOUS EPITHELIAL CELL,UR RARE Squamous (<= Few)
[2019-06-03] MEDS: TIMOLOL 0.5% OPHTH DROPS EACHEYE SCH (20:27)
[2019-06-03] MEDS: FAMOTIDINE 20 MG TABLET PO SCH (20:27)
[2019-06-04] MEDS: oxyCODONE 5 MG TABLET PO PRN ×2 (05:20→21:30)
[2019-06-04] MEDS: SODIUM CHLORIDE FLUSH 0.9% 10 ML SYRINGE IVP SCH ×3 (05:31→19:13)
[2019-06-04 05:53] LABS: BASOPHILS % (AUTO) 0.4 %; EOSINOPHILS % (AUTO) 0.8 %; HGB - HEMOGLOBIN 14.4 g/dL (14.0-18.0); LYMPHOCYTES % (AUTO) 81.1 %; MEAN CORPUSCULAR HGB CONC 34.4 g/dL (32.0-36.0); MEAN CORPUSCULAR VOLUME 98.8 fL (80.0-94.0); MEAN PLATELET VOLUME 10.5 fL (7.4-11.4); MONOCYTES % (AUTO) 14.3 %; NEUTROPHILS % (AUTO) 3.4 %; PLT - PLATELET COUNT 139 10^3/uL (130-450); RED BLOOD COUNT 4.24 10^6/uL (4.70-6.10); RED CELL DISTRIBUTION WIDTH 14.2 % (12.0-15.0); WHITE BLOOD COUNT 5.2 x10^3/uL (4.8-10.8)
[2019-06-04 05:56] LABS: ABNORMAL LYMPHS % (MANUAL) 0 %
[2019-06-04 06:11] LABS: BUN - BLOOD UREA NITROGEN 13 mg/dL (6-20); CALCIUM 8.8 mg/dL (8.5-10.3); CARBON DIOXIDE - CO2 30 mmol/L (21-32); CHLORIDE 96 mmol/L (101-111); CHOL/HDL RATIO 2.8 (<5.0); CHOLESTEROL 138 mg/dL; CREATININE 0.7 mg/dL (0.6-1.2); GFR - MDRD 106 (>89); GLUCOSE 93 mg/dL (70-100); HDL CHOLESTEROL 49 mg/dL; LDL CHOLESTEROL,CALCULATED 72 mg/dL; LDL/HDL RATIO 1.5 (<3.6); SODIUM 135 mmol/L (135-145); VLDL CHOLESTEROL 17 mg/dL
[2019-06-04 06:22] LABS: BAND NEUTROPHILS % (MANUAL) 1 %; DIFFERENTIAL COMMENT MANUAL DIFFERENTIAL; LYMPHOCYTES # (MANUAL) 4.3 10^3/uL (1.5-3.5); LYMPHOCYTES % (MANUAL) 33 %; MONOCYTES # (MANUAL) 0.5 10^3/uL (0.0-1.0); PLATELET ESTIMATE, MANUAL NORMAL (130-450,000) (NORMAL); RBC MORPHOLOGY (MULTIPLE) NORMAL APPEARANCE (NORMAL)
[2019-06-04 06:32] LABS: FOLATE 16.82 ng/mL (5.90 - >24.8)
[2019-06-04] MEDS: ASPIRIN CHEW 81 MG TABLET PO SCH (08:21)
[2019-06-04] MEDS: TIMOLOL 0.5% OPHTH DROPS EACHEYE SCH ×2 (08:21→19:51)
[2019-06-04] MEDS: MULTIVITAMIN W/MINERALS TABLET PO SCH (08:21)
[2019-06-04] MEDS: NICOTINE 14 MG PATCH TOP SCH (08:22)
[2019-06-04] MEDS: TAMSULOSIN 0.4 MG CAPSULE PO SCH (08:22)
[2019-06-04] MEDS: FAMOTIDINE 20 MG TABLET PO SCH ×2 (08:22→19:50)
[2019-06-04] MEDS ORDERED: ATENOLOL 25 MG TABLET PO SCH (09:00)
[2019-06-04] MEDS ORDERED: MULTIVITAMIN 10 ML, THIAMINE INJ 100 MG, FOLIC ACID INJ 1 MG in SODIUM CHLORIDE 0.9% 1,... IV SCH (09:00)
--- NOTE | 2019-06-04 09:20 | PROVIDER PROGRESS NOTE ---
Assessment/Plan - Problem List (1) Hemodynamic instability Assessment/Plan: His work-up regarding frequent falls has uncovered severe orthostasis: syst BP drops from 130's to 68 with standing. HR compensation for this was only from 50 to 70, since he is on B-mode. This has been documented after getting iv hydration for volume repletion. I suspect he gets altered mental status as well, with his BP drop, and hypoperfusion to brain, leading to falls. He will need adjustment in meds and further monitoring, therefore will change to inpatient status. Stop Atenolol. Start Midodrine. Start prescription strength compression stockings. Reassess postural VS as he starts with PT today. (2) Neutropenia Assessment/Plan: He has severe neutropenia with ANC 400. Etiology unclear. 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 He does not have an active infection by clinical exam, and no meds on his home list that may cause this. And finally, malignancy etiology would need an outpatient work-up. I have asked the lab to do a morphology exam of his WBC, checking for blast cells, tumor cells, etc. (They have already reported the morphology of his RBCs and Plts, which are normal). Will also check ESR and Hepatitis panel. Will start B12 and Folate supplements. Change diet to neutropenic precaution diet. Follow CBC daily, depending on ANC, he may need an urgent/emergent referral to Hematology (per [facility]). 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 (4) Recurrent falls Assessment/Plan: As per #1 above (5) Alcohol abuse Assessment/Plan: CIWA scorecard ordered with Ativan if needed, and 1 50 ml of alcohol with dinner ordered No signs of with drawal Banana bag for Thiamine started (6) Supine hypertension Assessment/Plan: He was on home Atenolol, stopped due to bradycardia and the orthostasis (as in #1) Continue telemetry Meds will need adjustment, and he is not ready for DCh (7) Rheumatoid arthritis Assessment/Plan: Chronic DX This may be the reason for low ANC (8) COPD without exacerbation Assessment/Plan: Resp status stable (9) BPH (benign prostatic hyperplasia) Assessment/Plan: Home meds for this continue (10) Smoker Assessment/Plan: He refused a Nicotine patch, says no urges, but also reported no plan to quit after [facility] - Current Meds Current Meds: Current Medications Generic Name Dose Route Start Last Admin Trade Name Freq PRN Reason Stop Dose Admin Acetaminophen 650 mg 06/03/19 15:43 06/04/19 05:19 Tylenol PO 650 mg Q4HR PRN Administration Pain or Fever > 38C (100.4F) Alcohol 50 ml 06/03/19 19:00 06/03/19 19:04 Liquor PO 50 ml 1900 WILLIE Administration Aspirin 81 mg 06/04/19 09:00 06/04/19 08:21 [place] Aspirin PO 81 mg DAILY WILLIE Administration Famotidine 20 mg 06/03/19 21:00 06/04/19 08:22 Pepcid PO 20 mg BID WILLIE Administration Multivitamins/Minerals 1 tab 06/04/19 08:00 06/04/19 08:21 Theragran M PO 1 tab DAILYWM WILLIE Administration Nicotine 1 patch 06/03/19 15:47 06/04/19 08:22 Nicoderm TOP Not Given DAILY WILLIE Oxycodone HCl 5 mg 06/03/19 15:43 06/04/19 05:20 Roxicodone PO 5 mg Q4HR PRN Administration Pain 5 to 7 Sodium Chloride 10 ml 06/03/19 17:00 06/04/19 08:22 Normal Saline Flush 0.9% IVP 10 ml 0100,0900,1700 WILLIE Administration Tamsulosin HCl 0.4 mg 06/04/19 09:00 06/04/19 08:22 Flomax PO 0.4 mg DAILY WILLIE Administration Timolol Maleate 1 drops 06/03/19 21:00 06/04/19 08:21 Timoptic 0.5% Ophth Drops EACHEYE 1 drops BID WILLIE Administration - Lab Result Fish Bone Diagrams: 06/05/19 08:45 06/04/19 05:15 - Additional Planning My Orders: My Active Orders 06/03/19 15:43 Activity Orders [RC] Q2HR IO [RC] IOSHIFT Initiate Bowel Care Protocol [RC] .protocol Initiate Bronchodialator Cristina [RC] .PROTOCOL Initiate Flu Vaccine Screening [RC] ONCE Initiate Line Care Protocol [RC] QSHIFT Initiate Personal Care Protoco [RC] .protocol Initiate Pneumonia Vaccine Scr [RC] ONCE Oxygen Therapy [RC] Routine Telemetry (24 Hour) [RC] Q4HR Vital Signs [RC] 0800,1600,0000 Acetaminophen [Tylenol] 650 mg PO Q4HR PRN Sodium Chloride Flush 0.9% [Normal Saline Flush 0.9%] 10 ml IVP PRN PRN oxyCODONE [Roxicodone] 5 mg PO Q4HR PRN Code Status [OTHERS] Routine Condition of Patient [OTHERS] Routine DVT Prophylaxis [OTHERS] Routine 06/03/19 15:44 IV Insert [RC] .ONCE SCDs [RC] QSHIFT 06/03/19 15:45 Initiate Line Care Protocol [RC] QSHIFT Postural [Vital Signs - Orthostatic] [RC] QSHIFT Evaluate and Treat OT [OT] Routine Evaluate and Treat PT [PT] Routine 06/03/19 15:47 Nicotine 14 mg Patch [Nicoderm] 1 patch TOP DAILY 06/03/19 17:00 Sodium Chloride Flush 0.9% [Normal Saline Flush 0.9%] 10 ml IVP 0100,0900,1700 06/03/19 17:04 CIWA - AR Score Card [RC] Q4HR Q4HR Neuro Check [RC] Q8HR Q8HR Straight Catheter Insertion [RC] PRN Vital Signs [RC] Q4HR Social Work Consult [CONS] Routine 06/03/19 17:33 LORazepam INJ [Ativan Inj (Vial)] 0.5 mg IVP Q2H PRN 06/03/19 19:00 Liquor 50 ml PO 1900 06/03/19 21:00 Famotidine [Pepcid] 20 mg PO BID Timolol 0.5% Ophth Drops [Timoptic 0.5% Ophth Drops] 1 drops EACHEYE BID 06/03/19 Dinner Regular Diet [DIET] 06/04/19 08:00 Carotid Doppler Complete [US] Routine Echo Complete w/Bubble Study [ECHO] Routine Multivitamin W/Minerals [Theragran M] 1 tab PO DAILYWM 06/04/19 09:00 Aspirin Chewable [[place] Aspirin] 81 mg PO DAILY Multivitamin [Infuvite] 10 ml Thiamine Inj [Vitamin B-1 Inj] 100 mg Folic Acid Inj 1 mg Sodium Chloride 0.9% [Normal Saline 0.9%] 1,000 ml IV DAILY Tamsulosin [Flomax] 0.4 mg PO DAILY Subjective - Subjective Patient Reports: No Complaints Nursing Reports: Other (RN reports he has no c/o) Objective Vital Signs: Vital Signs - 24 hr 06/03/19 06/03/19 06/03/19 12:11 12:18 16:15 Temperature 36.8 C Heart Rate 86 70 74 Heart Rate [ Brachial] Heart Rate [ Radial] Heart Rate [ Sitting (After 1 Minute)] Heart Rate [ Standing (After 1 Minute)] Heart Rate [ Supine] Respiratory 16 16 16 Rate Blood Pressure 191/92 H 154/78 H 148/74 H Blood Pressure [Right Brachial artery] Blood Pressure [Sitting (After 1 Minute)] Blood Pressure [Standing ( After 1 Minute) ] Blood Pressure [Supine] O2 Saturation 100 95 95 06/03/19 06/03/19 06/03/19 16:35 18:00 20:22 Temperature 36.7 C 36.7 C Heart Rate Heart Rate [ 56 L Brachial] Heart Rate [ 60 Radial] Heart Rate [ 60 Sitting (After 1 Minute)] Heart Rate [ 73 Standing (After 1 Minute)] Heart Rate [ 56 L Supine] Respiratory 18 20 Rate Blood Pressure Blood Pressure 153/75 H 131/59 H [Right Brachial artery] Blood Pressure 141/78 H [Sitting (After 1 Minute)] Blood Pressure 101/60 [Standing ( After 1 Minute) ] Blood Pressure 174/67 H [Supine] O2 Saturation 98 95 06/04/19 06/04/19 06/04/19 00:00 05:00 05:01 Temperature 37.0 C 36.3 C L Heart Rate Heart Rate [ 63 55 L Brachial] Heart Rate [ Radial] Heart Rate [ 53 L Sitting (After 1 Minute)] Heart Rate [ 70 Standing (After 1 Minute)] Heart Rate [ 64 Supine] Respiratory 20 18 Rate Blood Pressure Blood Pressure 137/69 H 163/77 H [Right Brachial artery] Blood Pressure 131/47 H [Sitting (After 1 Minute)] Blood Pressure 68/52 L [Standing ( After 1 Minute) ] Blood Pressure 148/69 H [Supine] O2 Saturation 97 98 06/04/19 08:02 Temperature 36.2 C L Heart Rate Heart Rate [ 51 L Brachial] Heart Rate [ Radial] Heart Rate [ Sitting (After 1 Minute)] Heart Rate [ Standing (After 1 Minute)] Heart Rate [ Supine] Respiratory 18 Rate Blood Pressure Blood Pressure 156/67 H [Right Brachial artery] Blood Pressure [Sitting (After 1 Minute)] Blood Pressure [Standing ( After 1 Minute) ] Blood Pressure [Supine] O2 Saturation 94 Oxygen O2 Source [With Activity] Nasal cannula O2 Source [Without Activity] Nasal cannula O2 Source Room air I&O (Last 24 Hrs): Intake and Output Totals x24h 06/02/19 06/03/19 06/04/19 23:59 23:59 23:59 Intake Total 250 1220 Output Total 345 200 Balance -95 1020 General: Alert, Oriented x3 HEENT: Mucous membr. moist/pink, Other (Ectropion of both lower eyelids (chronic)) Neck: Supple Neuro: Alert, Non Focal Cardiovascular: Regular rate, No murmurs Respiratory: No respiratory distress Abdomen: Soft Extremities: No edema - Results Results: Laboratory Results WBC 5.2 x10^3/uL (4.8-10.8) 06/04/19 05:15 RBC 4.24 10^6/uL (4.70-6.10) L 06/04/19 05:15 Hgb 14.4 g/dL (14.0-18.0) 06/04/19 05:15 Hct 41.9 % (42.0-52.0) L 06/04/19 05:15 MCV 98.8 fL (80.0-94.0) H 06/04/19 05:15 MCH 34.0 pg (27.0-31.0) H 06/04/19 05:15 MCHC 34.4 g/dL (32.0-36.0) 06/04/19 05:15 RDW 14.2 % (12.0-15.0) 06/04/19 05:15 Plt Count 139 10^3/uL (130-450) 06/04/19 05:15 MPV 10.5 fL (7.4-11.4) 06/04/19 05:15 Neut # (Auto) Not Reportable 06/04/19 05:15 Lymph # (Auto) Not Reportable 06/04/19 05:15 [place]al[place] # (Auto) Not Reportable 06/04/19 05:15 Eos # (Auto) Not Reportable 06/04/19 05:15 Baso # (Auto) Not Reportable 06/04/19 05:15 Absolute Nucleated RBC Not Reportable 06/04/19 05:15 Total Counted 100 06/04/19 05:15 Band Neuts % (Manual) 1 % (0-10) 06/04/19 05:15 Reactive Lymphs % (Man) 50 % 06/04/19 05:15 Abnorm Lymph % (Manual) 0 % 06/04/19 05:15 Nucleated RBC % Not Reportable 06/04/19 05:15 Neutrophils # (Manual) 0.4 10^3/uL (1.5-6.6) L* 06/04/19 05:15 Lymphocytes # (Manual) 4.3 10^3/uL (1.5-3.5) H 06/04/19 05:15 Monocytes # (Manual) 0.5 10^3/uL (0.0-1.0) 06/04/19 05:15 Eosinophils # (Manual) 0.0 10^3/uL (0-0.7) 06/04/19 05:15 Basophils # (Manual) 0.0 10^3/uL (0-0.1) 06/04/19 05:15 Differential Comment MANUAL DIFFERENTIAL 06/04/19 05:15 Platelet Estimate NORMAL (130-450,000) (NORMAL) 06/04/19 05:15 RBC Morph Micro Appear NORMAL APPEARANCE (NORMAL) 06/04/19 05:15 PT 12.0 secs (9.9-12.6) 06/03/19 12:39 INR 1.1 (0.8-1.2) 06/03/19 12:39 APTT 28.5 secs (24.9-33.3) 06/03/19 12:39 Sodium 135 mmol/L (135-145) 06/04/19 05:15 Potassium 3.8 mmol/L (3.5-5.0) 06/04/19 05:15 Chloride 96 mmol/L (101-111) L 06/04/19 05:15 Carbon Dioxide 30 mmol/L (21-32) 06/04/19 05:15 Anion Gap 9.0 (6-13) 06/04/19 05:15 BUN 13 mg/dL (6-20) 06/04/19 05:15 Creatinine 0.7 mg/dL (0.6-1.2) 06/04/19 05:15 Estimated GFR (MDRD) 106 (>89) 06/04/19 05:15 Glucose 93 mg/dL (70-100) 06/04/19 05:15 Calcium 8.8 mg/dL (8.5-10.3) 06/04/19 05:15 Total Bilirubin 1.2 mg/dL (0.2-1.0) H 06/03/19 12:39 AST 25 IU/L (10-42) 06/03/19 12:39 ALT 17 IU/L (10-60) 06/03/19 12:39 Alkaline Phosphatase 60 IU/L (42-121) 06/03/19 12:39 Total Protein 6.9 g/dL (6.7-8.2) 06/03/19 12:39 Albumin 3.4 g/dL (3.2-5.5) 06/03/19 12:39 Globulin 3.5 g/dL (2.1-4.2) 06/03/19 12:39 Albumin/Globulin Ratio 1.0 (1.0-2.2) 06/03/19 12:39 Triglycerides 84 mg/dL (-149) 06/04/19 05:15 Cholesterol 138 mg/dL (-199) 06/04/19 05:15 LDL Cholesterol, Calc 72 mg/dL (-129) 06/04/19 05:15 VLDL Cholesterol 17 mg/dL 06/04/19 05:15 HDL Cholesterol 49 mg/dL (60-) L 06/04/19 05:15 LDL/HDL Ratio 1.5 (<3.6) 06/04/19 05:15 Cholesterol/HDL Ratio 2.8 (<5.0) 06/04/19 05:15 Lipase 45 U/L (22-51) 06/03/19 12:39 Vitamin B12 262 pg/mL (180-914) 06/04/19 05:15 Folate 16.82 ng/mL (5.90 - >24.8) 06/04/19 05:15 Urine Color YELLOW 06/03/19 19:15 Urine Clarity CLEAR (CLEAR) 06/03/19 19:15 Urine pH 7.0 PH (5.0-7.5) 06/03/19 19:15 Ur Specific [place] 1.010 (1.002-1.030) 06/03/19 19:15 Urine Protein NEGATIVE mg/dL (NEGATIVE) 06/03/19 19:15 Urine Glucose (UA) NEGATIVE mg/dL (NEGATIVE) 06/03/19 19:15 Urine Ketones 15 mg/dL (NEGATIVE) H 06/03/19 19:15 Urine Occult Blood TRACE-INTA (NEGATIVE) 06/03/19 19:15 Urine Nitrite NEGATIVE (NEGATIVE) 06/03/19 19:15 Urine Bilirubin NEGATIVE (NEGATIVE) 06/03/19 19:15 Urine Urobilinogen 1 (NORMAL) E.U./dL (NORMAL) 06/03/19 19:15 Ur Leukocyte Esterase NEGATIVE (NEGATIVE) 06/03/19 19:15 Urine RBC 0-5 /HPF (0-5) 06/03/19 19:15 Urine WBC 0-3 /HPF (0-3) 06/03/19 19:15 Ur Squamous Epith Cells RARE Squamous (<= Few) 06/03/19 19:15 Urine Bacteria Rare /HPF (None Seen) 06/03/19 19:15 Urine Casts 0-2 Hyaline Casts /LPF 06/03/19 19:15 Urine Culture Comments NOT INDICATED 06/03/19 19:15 Ethyl Alcohol < 5.0 mg/dL 06/03/19 12:39 - Procedures Procedures: Procedures CATARAC PHACOEMULS/ASPIR (02/10/15) INSERT LENS AT CATAR EXT (02/10/15) PARTIAL HIP REPLACEMENT (09/15/13)
[2019-06-04] MEDS: CYANOCOBALAMIN 500 MCG TABLET PO SCH (13:01)
--- NOTE | 2019-06-04 16:21 | Ultrasound Report ---
Reason: TIA Procedure Date: 06/04/2019 Accession Number: [id number] / [id number] Procedure: US - Carotid Doppler Complete CPT Code: Final Report FULL RESULT: EXAM: BILATERAL CAROTID AND VERTEBRAL ARTERY DUPLEX DOPPLER ULTRASOUND. EXAM DATE: 06/04/2019 03:51 PM. CLINICAL HISTORY: Transient ischemic attack. COMPARISON: None. TECHNIQUE: Grayscale imaging, color Doppler, and duplex spectral Doppler were used to evaluate the carotid and vertebral arteries bilaterally. Static images were obtained. FINDINGS: There is bilateral prominently hyperechoic atherosclerotic plaque which is most pronounced in the carotid bulb regions. Evaluation of the right carotid bulb region is limited by shadowing plaque, morphologically approximately 50% luminal stenosis were seen. The left common carotid artery as well as the left carotid bifurcation and proximal internal carotid artery demonstrate significant atherosclerotic disease with grayscale evaluation of the proximal internal carotid artery demonstrating apparent narrowing of greater than 50%. On the right side, spectral Doppler waveforms demonstrate preserved brisk arterial upstrokes throughout. In the left carotid arterial system brisk arterial systolic upstrokes are preserved to the level of the proximal ICA and development of tardus parvus waveforms is seen distal to the visually severe stenosis with apparent tardus parvus flow in the mid ICA as seen. This is conflicted by only minimal delay in arterial upstroke in the waveform in the distal ICA resistive index is 0.76, potential technical limitation in evaluation of the mid ICA post stenosis. Normal antegrade flow is present in bilateral vertebral arteries. VELOCITIES (cm/sec): Right CCA mid: PSV 50 cm/sec CCA dist: PSV 43 cm/sec ICA prox: PSV 65 cm/sec, EDV 10 cm/sec ICA mid: PSV 49 cm/sec, EDV 10 cm/sec ICA dist: PSV 57 cm/sec, EDV 13 cm/sec ECA: PSV 76 cm/sec Vert: PSV 80 cm/sec ICA/CCA: 1.1 Left CCA mid: PSV 51 cm/sec CCA dist: PSV 66 cm/sec ICA prox: PSV 74 cm/sec, EDV 13 cm/sec ICA mid: PSV 65 cm/sec, EDV 11 cm/sec ICA dist: PSV 70 cm/sec, EDV 17 cm/sec ECA: PSV 135 cm/sec Vert: PSV 44 cm/sec ICA/CCA: 1.4 ICA diameter stenosis: Right: <50% by velocity and <70% by NASCET criteria. Left: <50% by velocity and <70% by NASCET criteria. IMPRESSION: 1. Significant left greater than right bilateral carotid artery plaquing with question of greater then 50% focal stenosis in the proximal left internal carotid artery. 2. In the right carotid artery there are no elevated carotid artery velocities to suggest hemodynamically significant stenosis. 3. In the left carotid artery there is degradation of waveforms in the mid and distal internal carotid arteries downstream of a visually significant stenosis. In this setting, lack of elevated velocities is potentially false reassurance. 4. Normal antegrade flow is present in bilateral vertebral arteries. Recommendation: CTA for clarification of status of the left carotid system. RADIA
[2019-06-04] MEDS: MIDODRINE 2.5 MG TABLET PO SCH (19:50)
[2019-06-04] MEDS: LIQUOR 50 ML BOTTLE PO SCH (19:51)
[2019-06-05] MEDS: SODIUM CHLORIDE FLUSH 0.9% 10 ML SYRINGE IVP SCH ×3 (01:18→19:31)
[2019-06-05 08:55] LABS: BASOPHILS % (AUTO) 0.2 %; EOSINOPHILS % (AUTO) 0.7 %; HGB - HEMOGLOBIN 13.4 g/dL (14.0-18.0); MEAN CORPUSCULAR HEMOGLOBIN 34.3 pg (27.0-31.0); MEAN CORPUSCULAR HGB CONC 34.6 g/dL (32.0-36.0); MONOCYTES % (AUTO) 20.3 %; NEUTROPHILS % (AUTO) 3.8 %; PLT - PLATELET COUNT 130 10^3/uL (130-450); RED BLOOD COUNT 3.91 10^6/uL (4.70-6.10); RED CELL DISTRIBUTION WIDTH 14.1 % (12.0-15.0); WHITE BLOOD COUNT 4.5 x10^3/uL (4.8-10.8)
[2019-06-05] MEDS: DOCUSATE SODIUM 250 MG CAPSULE PO SCH (09:03)
[2019-06-05] MEDS: ASPIRIN CHEW 81 MG TABLET PO SCH (09:03)
[2019-06-05] MEDS: SENNA 8.6 MG TABLET PO SCH (09:04)
[2019-06-05] MEDS: TAMSULOSIN 0.4 MG CAPSULE PO SCH (09:04)
[2019-06-05] MEDS: MULTIVITAMIN W/MINERALS TABLET PO SCH (09:04)
[2019-06-05] MEDS: THIAMINE 100 MG TABLET PO SCH (09:04)
[2019-06-05] MEDS: TIMOLOL 0.5% OPHTH DROPS EACHEYE SCH ×2 (09:05→22:23)
[2019-06-05] MEDS: FAMOTIDINE 20 MG TABLET PO SCH ×2 (09:05→22:23)
[2019-06-05] MEDS: CYANOCOBALAMIN 500 MCG TABLET PO SCH (09:05)
[2019-06-05] MEDS: NICOTINE 14 MG PATCH TOP SCH (09:06)
[2019-06-05 09:27] LABS: ABNORMAL LYMPHS % (MANUAL) 0 %; BAND NEUTROPHILS % (MANUAL) 0 %
[2019-06-05 09:33] LABS: LYMPHOCYTES # (MANUAL) 3.9 10^3/uL (1.5-3.5); LYMPHOCYTES % (MANUAL) 27 %; MONOCYTES # (MANUAL) 0.5 10^3/uL (0.0-1.0)
[2019-06-05 09:34] LABS: DIFFERENTIAL COMMENT MANUAL DIFFERENTIAL
[2019-06-05] MEDS: MIDODRINE 2.5 MG TABLET PO SCH ×3 (11:16→19:31)
[2019-06-05] MEDS: POLYETHYLENE GLYCOL 3350 17 GM PACKET PO SCH ×2 (11:16→14:32)
--- NOTE | 2019-06-05 11:21 | PROVIDER PROGRESS NOTE ---
Assessment/Plan - Problem List (1) Hemodynamic instability Assessment/Plan: Again the anti-hypertnsive meds and Midodrine will need adjustment, since he has supine HTN (170mmHg) but significant drops in systolic BP with standing (he drops 40 mmHg). He is not ready for DCh today, due to need for medication changes based on results of orthostatic VS checks being done multiple times a day. (2) PSVT (paroxysmal supraventricular tachycardia) Assessment/Plan: When Cardizem is stopped, he gets recurrent PSVT. These are asymptomatic. Will resume a lower dose of Cardizem, not a CD, sustained release dose due to orthostasis. (3) Neutropenia Assessment/Plan: Etiology unclear. The most likely is his history of autoimmune disease, Rheumatoid arthritis, but also could be alcohol abuse with nutritional deficiencies. Levels have been sent off to check B12, Folate, etc He does not appear to have a severe infection, associated with this neutropenia, therefore no empiric He is on empiric daily Thiamine due to his alcohol abuse history. Neutropenic contact precautions are posted for his room. Await cultures. (4) TIA (transient ischemic attack) Assessment/Plan: The W/U was essentially neg The carotid Doppler showed a unilateral 50% stenosis. This result was discussed with the daughter, by phone, today. (5) Recurrent falls Assessment/Plan: He now admits there were frequent falls and that he does get lightheaded with these. The etiology is undoubtedly his severe orthostasis. He apparently has a caregiver, for unknown amount of time. The daughter was at his bedside at admnission and told me he very mucgh wants to stay independent and in his own residence. There will have to be a schedule of meds to be followed strictly, due to his orthostasis. In addition, his daily alcohol use and possible associated ataxia is likely adding to the falls, plus adding to dehydration and orthostasis therefore. (6) Alcohol abuse Assessment/Plan: Banana bag finished, Continue vitamins and Thiamine He is also prescribed one 50 ml alcoholic drink with dinner while here, to avoid alcohol withdrawal. (8) Rheumatoid arthritis Assessment/Plan: No significant deformities are seen, no pain complaints. (9) COPD without exacerbation Assessment/Plan: His inhalers are ordered prn (10) BPH (benign prostatic hyperplasia) Assessment/Plan: His home meds for this continue (11) Smoker Assessment/Plan: He refused a Nicotine patch, says he has no urges. He alaso stated he is not planning on quitting smoking. - Current Meds Current Meds: Current Medications Generic Name Dose Route Start Last Admin Trade Name Freq PRN Reason Stop Dose Admin Acetaminophen 650 mg 06/03/19 15:43 06/04/19 05:19 Tylenol PO 650 mg Q4HR PRN Administration Pain or Fever > 38C (100.4F) Alcohol 50 ml 06/03/19 19:00 06/04/19 19:51 Liquor PO 50 ml 1900 WILLIE Administration Aspirin 81 mg 06/04/19 09:00 06/05/19 09:03 [place] Aspirin PO 81 mg DAILY WILLIE Administration Cyanocobalamin 500 mcg 06/04/19 13:00 06/05/19 09:05 Vitamin B-12 PO 500 mcg DAILY WILLIE Administration Docusate Sodium 250 - 500 mg 06/05/19 09:00 06/05/19 09:03 Colace 250mg Capsule PO 250 mg DAILY WILLIE Administration Famotidine 20 mg 06/03/19 21:00 06/05/19 09:05 Pepcid PO 20 mg BID WILLIE Administration Midodrine 2.5 mg 06/04/19 18:00 06/05/19 11:16 PO Not Given TIDWM [facility] Multivitamins/Minerals 1 tab 06/04/19 08:00 06/05/19 09:04 Theragran M PO 1 tab DAILYWM WILLIE Administration Nicotine 1 patch 06/03/19 15:47 06/05/19 09:06 Nicoderm TOP Not Given DAILY WILLIE Oxycodone HCl 5 mg 06/03/19 15:43 06/04/19 21:30 Roxicodone PO 5 mg Q4HR PRN Administration Pain 5 to 7 Polyethylene Glycol 17 gm 06/05/19 09:00 06/05/19 11:16 Miralax PO Not Given DAILY WILLIE Senna 8.6 - 17.2 mg 06/05/19 09:00 06/05/19 09:04 Senokot PO 8.6 mg DAILY WILLIE Administration Sodium Chloride 10 ml 06/03/19 17:00 06/05/19 09:05 Normal Saline Flush 0.9% IVP 10 ml [id number],[id number] WILLIE Administration Tamsulosin HCl 0.4 mg 06/04/19 09:00 06/05/19 09:04 Flomax PO 0.4 mg DAILY WILLIE Administration Thiamine HCl 100 mg 06/05/19 09:00 06/05/19 09:04 Vitamin B-1 PO 100 mg DAILY WLILIE Administration Timolol Maleate 1 drops 06/03/19 21:00 06/05/19 09:05 Timoptic 0.5% Ophth Drops EACHEYE 1 drops BID WILLIE Administration - Lab Result Fish Bone Diagrams: 06/06/19 06:56 06/04/19 05:15 - Additional Planning My Orders: My Active Orders 06/04/19 13:00 Cyanocobalamin [Vitamin B-12] 500 mcg PO DAILY 06/04/19 13:05 HEPATITIS ACUTE PANEL W CONF [REFLAB] Routine 06/04/19 18:00 Midodrine 2.5 mg PO TIDWM 06/04/19 Dinner Neutropenic (Low Microbial) Diet [DIET] 06/05/19 09:00 Docusate Sodium 250Mg Capsule [Colace 250Mg Capsule] 250 - 500 mg PO DAILY Polyethylene Glycol 3350 [Miralax] 17 gm PO DAILY Senna [Senokot] 8.6 - 17.2 mg PO DAILY Thiamine [Vitamin B-1] 100 mg PO DAILY 06/05/19 12:00 Metoprolol Succinate [Toprol Xl] 25 mg PO DAILY Subjective - Subjective Patient Reports: Feeling Better, Resting Comfortably Objective Vital Signs: Vital Signs - 24 hr 06/04/19 06/04/19 06/04/19 11:57 14:20 16:17 Temperature 36.2 C L 36.4 C L Heart Rate [ 56 L Activity] Heart Rate [ 52 L 55 L Brachial] Heart Rate [ Sitting (After 1 Minute)] Heart Rate [ 59 L Sitting] Heart Rate [ Standing (After 1 Minute)] Heart Rate [ 77 Standing] Heart Rate [ 55 L Supine] Respiratory 18 20 Rate Blood Pressure 121/49 L [Activity] Blood Pressure [Left Brachial artery] Blood Pressure 153/77 H 156/83 H [Right Brachial artery] Blood Pressure [Sitting (After 1 Minute)] Blood Pressure 138/95 H [Sitting] Blood Pressure [Standing ( After 1 Minute) ] Blood Pressure 117/70 [Standing] Blood Pressure 154/84 H [Supine] O2 Saturation 96 95 06/04/19 06/04/1906/05/19 17:43 20:18 00:48 Temperature 36.5 C 36.3 C L Heart Rate [ Activity] Heart Rate [ 57 L 56 L Brachial] Heart Rate [ 68 Sitting (After 1 Minute)] Heart Rate [ Sitting] Heart Rate [ 108 H Standing (After 1 Minute)] Heart Rate [ Standing] Heart Rate [ 57 L Supine] Respiratory 20 18 Rate Blood Pressure [Activity] Blood Pressure [Left Brachial artery] Blood Pressure 155/72 H 152/61 H [Right Brachial artery] Blood Pressure 137/71 H [Sitting (After 1 Minute)] Blood Pressure [Sitting] Blood Pressure 106/43 L [Standing ( After 1 Minute) ] Blood Pressure [Standing] Blood Pressure 156/72 H [Supine] O2 Saturation 96 96 06/05/19 06/05/19 06/05/19 02:00 05:00 07:55 Temperature 36.7 C 36.6 C Heart Rate [ Activity] Heart Rate [ 58 L 59 L Brachial] Heart Rate [ 82 Sitting (After 1 Minute)] Heart Rate [ Sitting] Heart Rate [ 86 Standing (After 1 Minute)] Heart Rate [ Standing] Heart Rate [ 70 Supine] Respiratory 18 20 Rate Blood Pressure [Activity] Blood Pressure [Left Brachial artery] Blood Pressure 155/66 H 176/71 H [Right Brachial artery] Blood Pressure 129/59 L [Sitting (After 1 Minute)] Blood Pressure [Sitting] Blood Pressure 113/88 H [Standing ( After 1 Minute) ] Blood Pressure [Standing] Blood Pressure 148/77 H [Supine] O2 Saturation 96 95 06/05/19 06/05/19 09:00 09:40 Temperature 36.6 C Heart Rate [ Activity] Heart Rate [ 59 L 59 L Brachial] Heart Rate [ 68 Sitting (After 1 Minute)] Heart Rate [ Sitting] Heart Rate [ 95 Standing (After 1 Minute)] Heart Rate [ Standing] Heart Rate [ 59 L Supine] Respiratory 20 Rate Blood Pressure [Activity] Blood Pressure 128/80 [Left Brachial artery] Blood Pressure 176/71 H [Right Brachial artery] Blood Pressure 131/59 H [Sitting (After 1 Minute)] Blood Pressure [Sitting] Blood Pressure 133/93 H [Standing ( After 1 Minute) ] Blood Pressure [Standing] Blood Pressure 146/64 H [Supine] O2 Saturation 95 Oxygen O2 Source [With Activity] Nasal cannula O2 Source [Without Activity] Nasal cannula O2 Source Room air I&O (Last 24 Hrs): Intake and Output Totals x24h 06/03/19 06/04/19 06/05/19 23:59 23:59 23:59 Intake Total 250 3010 1581.2 Output Total 345 1450 Balance -95 1560 1581.2 General: Alert, Oriented x3, Other (Thin and cachectic) HEENT: Mucous membr. moist/pink, Other (Poor dentition. Ectropion of both lower eye lids.) Neck: Supple Neuro: Non Focal Cardiovascular: No murmurs Respiratory: No respiratory distress, Breath sounds nml Abdomen: Soft Extremities: No edema - Results Results: Laboratory Results WBC 4.5 x10^3/uL (4.8-10.8) L 06/05/19 08:45 RBC 3.91 10^6/uL (4.70-6.10) L 06/05/19 08:45 Hgb 13.4 g/dL (14.0-18.0) L 06/05/19 08:45 Hct 38.7 % (42.0-52.0) L 06/05/19 08:45 MCV 99.0 fL (80.0-94.0) H 06/05/19 08:45 MCH 34.3 pg (27.0-31.0) H 06/05/19 08:45 MCHC 34.6 g/dL (32.0-36.0) 06/05/19 08:45 RDW 14.1 % (12.0-15.0) 06/05/19 08:45 Plt Count 130 10^3/uL (130-450) 06/05/19 08:45 MPV 10.0 fL (7.4-11.4) 06/05/19 08:45 Neut # (Auto) Not Reportable 06/05/19 08:45 Lymph # (Auto) Not Reportable 06/05/19 08:45 [place] # (Auto) Not Reportable 06/05/19 08:45 Eos # (Auto) Not Reportable 06/05/19 08:45 Baso # (Auto) Not Reportable 06/05/19 08:45 Absolute Nucleated RBC Not Reportable 06/05/19 08:45 Total Counted 100 06/05/19 08:45 Band Neuts % (Manual) 0 % (0-10) 06/05/19 08:45 Reactive Lymphs % (Man) 60 % 06/05/19 08:45 Abnorm Lymph % (Manual) 0 % 06/05/19 08:45 Nucleated RBC % Not Reportable 06/05/19 08:45 Neutrophils # (Manual) 0.1 10^3/uL (1.5-6.6) L* 06/05/19 08:45 Lymphocytes # (Manual) 3.9 10^3/uL (1.5-3.5) H 06/05/19 08:45 Monocytes # (Manual) 0.5 10^3/uL (0.0-1.0) 06/05/19 08:45 Eosinophils # (Manual) 0.0 10^3/uL (0-0.7) 06/05/19 08:45 Basophils # (Manual) 0.0 10^3/uL (0-0.1) 06/05/19 08:45 Differential Comment MANUAL DIFFERENTIAL 06/05/19 08:45 Manual Slide Review Indicated 06/05/19 08:45 Platelet Estimate NORMAL (130-450,000) (NORMAL) 06/04/19 05:15 RBC Morph Micro Appear NORMAL APPEARANCE (NORMAL) 06/04/19 05:15 ESR 20 mm/Hr (0-20) 06/04/19 13:05 PT 12.0 secs (9.9-12.6) 06/03/19 12:39 INR 1.1 (0.8-1.2) 06/03/19 12:39 APTT 28.5 secs (24.9-33.3) 06/03/19 12:39 Sodium 135 mmol/L (135-145) 06/04/19 05:15 Potassium 3.8 mmol/L (3.5-5.0) 06/04/19 05:15 Chloride 96 mmol/L (101-111) L 06/04/19 05:15 Carbon Dioxide 30 mmol/L (21-32) 06/04/19 05:15 Anion Gap 9.0 (6-13) 06/04/19 05:15 BUN 13 mg/dL (6-20) 06/04/19 05:15 Creatinine 0.7 mg/dL (0.6-1.2) 06/04/19 05:15 Estimated GFR (MDRD) 106 (>89) 06/04/19 05:15 Glucose 93 mg/dL (70-100) 06/04/19 05:15 Calcium 8.8 mg/dL (8.5-10.3) 06/04/19 05:15 Total Bilirubin 1.2 mg/dL (0.2-1.0) H 06/03/19 12:39 AST 25 IU/L (10-42) 06/03/19 12:39 ALT 17 IU/L (10-60) 06/03/19 12:39 Alkaline Phosphatase 60 IU/L (42-121) 06/03/19 12:39 Total Protein 6.9 g/dL (6.7-8.2) 06/03/19 12:39 Albumin 3.4 g/dL (3.2-5.5) 06/03/19 12:39 Globulin 3.5 g/dL (2.1-4.2) 06/03/19 12:39 Albumin/Globulin Ratio 1.0 (1.0-2.2) 06/03/19 12:39 Triglycerides 84 mg/dL (-149) 06/04/19 05:15 Cholesterol 138 mg/dL (-199) 06/04/19 05:15 LDL Cholesterol, Calc 72 mg/dL (-129) 06/04/19 05:15 VLDL Cholesterol 17 mg/dL 06/04/19 05:15 HDL Cholesterol 49 mg/dL (60-) L 06/04/19 05:15 LDL/HDL Ratio 1.5 (<3.6) 06/04/19 05:15 Cholesterol/HDL Ratio 2.8 (<5.0) 06/04/19 05:15 Lipase 45 U/L (22-51) 06/03/19 12:39 Vitamin B12 262 pg/mL (180-914) 06/04/19 05:15 Folate 16.82 ng/mL (5.90 - >24.8) 06/04/19 05:15 Urine Color YELLOW 06/03/19 19:15 Urine Clarity CLEAR (CLEAR) 06/03/19 19:15 Urine pH 7.0 PH (5.0-7.5) 06/03/19 19:15 Ur Specific Peck 1.010 (1.002-1.030) 06/03/19 19:15 Urine Protein NEGATIVE mg/dL (NEGATIVE) 06/03/19 19:15 Urine Glucose (UA) NEGATIVE mg/dL (NEGATIVE) 06/03/19 19:15 Urine Ketones 15 mg/dL (NEGATIVE) H 06/03/19 19:15 Urine Occult Blood TRACE-INTA (NEGATIVE) 06/03/19 19:15 Urine Nitrite NEGATIVE (NEGATIVE) 06/03/19 19:15 Urine Bilirubin NEGATIVE (NEGATIVE) 06/03/19 19:15 Urine Urobilinogen 1 (NORMAL) E.U./dL (NORMAL) 06/03/19 19:15 Ur Leukocyte Esterase NEGATIVE (NEGATIVE) 06/03/19 19:15 Urine RBC 0-5 /HPF (0-5) 06/03/19 19:15 Urine WBC 0-3 /HPF (0-3) 06/03/19 19:15 Ur Squamous Epith Cells RARE Squamous (<= Few) 06/03/19 19:15 Urine Bacteria Rare /HPF (None Seen) 06/03/19 19:15 Urine Casts 0-2 Hyaline Casts /LPF 06/03/19 19:15 Urine Culture Comments NOT INDICATED 06/03/19 19:15 Ethyl Alcohol < 5.0 mg/dL 06/03/19 12:39 - Procedures Procedures: Procedures CATARAC PHACOEMULS/ASPIR (02/10/15) INSERT LENS AT CATAR EXT (02/10/15) PARTIAL HIP REPLACEMENT (09/15/13)
[2019-06-05] MEDS ORDERED: METOPROLOL SUCCINATE 25 MG TABLET PO SCH (12:00)
[2019-06-05] MEDS ORDERED: BACITRACIN ZINC OINT 28.4 GM TUBE TOP PRN (12:15)
[2019-06-05 12:27] LABS: HEPATITIS A IGM NON-REACTIVE (NON-REACTIVE); HEPATITIS B SURFACE ANTIGEN NON-REACTIVE (NON-REACTIVE); HEPATITIS C ANTIBODY NON-REACTIVE (NON-REACTIVE)
[2019-06-05] MEDS ORDERED: BACITRACIN ZINC OINT 1 PACKET TOP PRN (13:23)
[2019-06-05] MEDS: LIQUOR 50 ML BOTTLE PO SCH (19:31)
[2019-06-06] MEDS: SODIUM CHLORIDE FLUSH 0.9% 10 ML SYRINGE IVP SCH ×2 (00:48→08:22)
[2019-06-06 07:04] LABS: BASOPHILS % (AUTO) 0.2 %; EOSINOPHILS % (AUTO) 0.4 %; HGB - HEMOGLOBIN 12.8 g/dL (14.0-18.0); LYMPHOCYTES % (AUTO) 80.5 %; MEAN CORPUSCULAR HEMOGLOBIN 34.3 pg (27.0-31.0); MEAN CORPUSCULAR VOLUME 98.1 fL (80.0-94.0); MONOCYTES % (AUTO) 15.1 %; NEUTROPHILS % (AUTO) 3.8 %; PLT - PLATELET COUNT 125 10^3/uL (130-450); RED BLOOD COUNT 3.73 10^6/uL (4.70-6.10); RED CELL DISTRIBUTION WIDTH 14.2 % (12.0-15.0)
[2019-06-06 07:11] LABS: ABNORMAL LYMPHS % (MANUAL) 0 %
[2019-06-06 07:28] LABS: BAND NEUTROPHILS % (MANUAL) 1 %; BASOPHILS # (MANUAL) 0.1 10^3/uL (0-0.1); BASOPHILS % (MANUAL) 1 %; LYMPHOCYTES # (MANUAL) 4.5 10^3/uL (1.5-3.5); LYMPHOCYTES % (MANUAL) 89 %; MONOCYTES # (MANUAL) 0.4 10^3/uL (0.0-1.0)
[2019-06-06 07:31] LABS: DIFFERENTIAL COMMENT MANUAL DIFFERENTIAL; PLATELET ESTIMATE, MANUAL DECREASED (<130,000) (NORMAL); PLATELET MORPHOLOGY NORMAL APPEARANCE (NORMAL); RBC MORPHOLOGY (MULTIPLE) NORMAL APPEARANCE (NORMAL)
[2019-06-06] MEDS: FAMOTIDINE 20 MG TABLET PO SCH (08:22)
[2019-06-06] MEDS: MULTIVITAMIN W/MINERALS TABLET PO SCH (08:22)
[2019-06-06] MEDS: TAMSULOSIN 0.4 MG CAPSULE PO SCH (08:22)
[2019-06-06] MEDS: THIAMINE 100 MG TABLET PO SCH (08:22)
[2019-06-06] MEDS: ASPIRIN CHEW 81 MG TABLET PO SCH (08:23)
[2019-06-06] MEDS: CYANOCOBALAMIN 500 MCG TABLET PO SCH (08:23)
[2019-06-06] MEDS: TIMOLOL 0.5% OPHTH DROPS EACHEYE SCH (08:25)
[2019-06-06] MEDS: NICOTINE 14 MG PATCH TOP SCH (08:25)
[2019-06-06] MEDS: SENNA 8.6 MG TABLET PO SCH (08:25)
[2019-06-06] MEDS: DOCUSATE SODIUM 250 MG CAPSULE PO SCH (08:25)
[2019-06-06] MEDS ORDERED: METOPROLOL SUCCINATE 25 MG TABLET PO SCH (09:00)
[2019-06-06] MEDS: MIDODRINE 2.5 MG TABLET PO SCH ×2 (10:01→13:26)
--- NOTE | 2019-06-06 11:02 | Discharge Plan ---
Discharge Plan Problem Reviewed?: Yes Disposition: Home, Self Care Condition: Stable Prescriptions: Metoprolol Succinate [Toprol Xl] 12.5 mg PO DAILY #15 tablet Midodrine 2.5 mg PO TIDWM #90 tablet Thiamine [Vitamin B-1] 100 mg PO DAILY #30 tablet Diet: Regular Activity Restrictions: Activity as Tolerated Shower Restrictions: No Driving Restrictions: Yes Assistance Devices: Walker Instruction Topics: Midodrine tablets Health Concerns: Admitted for evaluation of a TIA and found to have severe drops in blood pressure when standing (called orthostatic hypotension). This probably leads to your frequent falls at home. Plan of Treatment: Medications have been started and adjusted, please follow the new list of medications. Care Goals: Stabilization of symptoms. Assessment: The patient understands and everything was reviewed with your daughter yesterday by phone. No Smoking: If you smoke, Please STOP! Call for help. Follow-up with: REKHA CRAWFORD MD [Primary Care Provider] -
[2019-06-06 14:07] VITALS: BP 167/64
--- NOTE | 2019-06-06 17:08 | DISCHARGE SUMMARY ---
Discharge Summary Admit Date: 06/03/19 Discharge Date: 06/06/19 Discharging Provider: Dr Luanne Levine Primary Care Provider: Dr Jorge Rogers Code Status: Do Not Attempt Resuscitation Condition at Discharge: Stable Discharge Disposition: 01 Home, Self Care - DIAGNOSES Admission Diagnoses: 1) TIA 2) Recurrent falls 3) Alcohol abuse 4) HTN 5) Rheumatoid arthritis 6) Neutropenia 7) COPD without exacerbation 8) BPH 9) [place] 10) Smoker Discharge Diagnoses with Status of Each Condition: See below - HPI History of Present Illness: This is an 89y/o WM with a Hx of smoking, COPD, HTN, RA, neutropenia, glaucoma, BPH and alcohol abuse (he drinks 5 alcoholic drinks daily). He has had previous falls, once needing hip surgery after a fracture, and uses a [facility] to call for help. He lives alone. He sufferred 2 hours of garbled speech, but told noone until the following day and was urged to come to the ER by his family, which he did. There were no focal neurologic findings in the ER and head CT was unremarkable. He was placed in Observation status to evaluate his TIA and recurrent falls. Code status is DNR. - HOSPITAL COURSE Hospital Course: (1) Hemodynamic instability His work-up regarding frequent falls uncovered severe orthostasis: syst BP drops from 130's to 68 with standing. HR compensation for this was only from 50 to 70, since he was on B-mode. This was been documented even after getting iv hyd ration for volume repletion. He was made an inpatient, for further evaluation and medication adjustments. Atenolol was stopped. Midodrine was started at a dose of 2.5 mg t.i.d. with meals. He was told that he had to get this new prescription from a commercial pharmacy, since the [facility] pharmacy was closed on the day of [facility] (it was a weekend). (2) PSVT When his Atenolol was stopped, he developed recurrent runs of PSVT, he was asymptomatic with these. A dose of po To[prol XL was started and needed dose adjustments, for management of PSVT and for treating supine HTN. (3) Neutropenia He has severe neutropenia with ANC 400. Etiology unclear. 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 He does not have an active infection by clinical exam, and no meds on his home list that may cause this. And finally, malignancy etiology would need an outpatient work-up. We checked ESR (which was 20) and Hepatitis panel (which was all neg). He was on neutropenic contact precaution and diet order. (4) TIA (transient ischemic attack) Echo shows no clot. Carotid Doppler showed a 50% or greater left ICA stenosis. 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 PT worked with him and noted that he was at his usual baseline ability, needing a walker to ambulate. (6) Alcohol abuse A Banana bag iv was given for a day, then oral Thiamine started. He was ordered to get 50 ml of alcohol with dinner, to avoid alcohol with drawal. A [facility] pr otocol was ordered for prn Ativan, but there were no signs of withdrawal while here. He was discharged with new prescriptions for a multivitamin and for Thiamine 100 mg po daily. (7) Rheumatoid arthritis Chronic diagnosis and this may be the reason for low ANC (8) COPD without exacerbation Respiratory status stable while here. (9) BPH (benign prostatic hyperplasia) Home meds for this were continued, realizing it may add to BP drops. (10) Smoker He refused a Nicotine patch, says he has no urges, but also reported no plan to quit smoking after [facility] - ALLERGIES Allergies/Adverse Reactions: Allergies Allergy/AdvReac Type Severity Reaction Status Date / Time gold sodium thiomalate Allergy Intermediate Rash Verified 06/03/19 12:11 - MEDICATIONS Home Medications: Ambulatory Orders Medication Instructions Recorded Confirmed Aspirin [Children's Aspirin] 81 mg PO DAILY 09/15/13 06/07/19 Simvastatin [Zocor] 20 mg PO QPM 09/15/13 06/07/19 Timolol 0.5% Ophth Drops [Timoptic 1 drops EACHEYE BID 04/13/18 06/07/19 0.5% Ophth Drops] Multivitamin W/Minerals [Theragran 1 tab PO DAILYWM #30 tablet 04/17/18 06/07/19 M] Tamsulosin [Flomax] 0.4 mg PO DAILY #30 capsule 04/17/18 06/07/19 Metoprolol Succinate [Toprol Xl] 12.5 mg PO DAILY #15 tablet 06/06/19 06/07/19 Midodrine 2.5 mg PO TIDWM #90 tablet 06/06/19 06/07/19 Thiamine [Vitamin B-1] 100 mg PO DAILY #30 tablet 06/06/19 06/07/19 Midodrine 5 mg PO TIDWM #30 tablet 06/07/19 - PHYSICAL EXAM AT DISCHARGE General Appearance: positive: No acute distress, Alert Eyes Bilateral: positive: Other (Ectropion of both lower lids) ENT: positive: Other (Poor dentition, many teeth missing) Neck: positive: Nml inspection, No JVD Respiratory: positive: No respiratory distress, Breath sounds nml Cardiovascular: positive: Regular rate & rhythm, No murmur Abdomen: positive: Non-tender, No distention Skin: positive: Color nml Extremities: positive: No pedal edema Neurologic/Psychiatric: positive: Oriented x3, Other (Non-focal exam.) - LABS Result Diagrams: 06/06/19 06:56 06/04/19 05:15 - DIAGNOSTIC IMAGING Diagnostic Imaging Results: Final report reviewed - FOLLOW UP Follow Up: See PCP in 1-2 weeks for follow-up and medication refills. - TIME SPENT Time Spent in Discharge (Minutes): 60
== END 2019-06-06 15:11 | disposition home or self-care (01) | DRG 69 ==
LOC: EDUNIT# → ED 12:09 → UNDOADMOB 14:24 → MS2 14:24 → OBSVTOIN 06-04 09:21 → INTOOBSV 06-04 09:46 → OBSVTOIN 06-04 09:46 → UNDODISIN 06-06 15:11
PROVIDERS: ADMIT Internal Medicine; ATTEND Internal Medicine
DX: G45.9 Transient cerebral ischemic attack, unspecified (principal); I47.1 Supraventricular tachycardia; I95.1 Orthostatic hypotension; I65.22 Occlusion and stenosis of left carotid artery; D70.9 Neutropenia, unspecified; I10 Essential (primary) hypertension; F10.10 Alcohol abuse, uncomplicated; H57.02 Anisocoria; K70.30 Alcoholic cirrhosis of liver without ascites; D73.1 Hypersplenism; M06.9 Rheumatoid arthritis, unspecified; J44.9 Chronic obstructive pulmonary disease, unspecified; F17.210 Nicotine dependence, cigarettes, uncomplicated; E63.8 Other specified nutritional deficiencies; R27.0 Ataxia, unspecified; E78.5 Hyperlipidemia, unspecified; H40.9 Unspecified glaucoma; N40.0 Benign prostatic hyperplasia without lower urinary tract symptoms; S01.01XD Laceration without foreign body of scalp, subsequent encounter; W19.XXXD Unspecified fall, subsequent encounter; H02.103 Unspecified ectropion of right eye, unspecified eyelid; H02.106 Unspecified ectropion of left eye, unspecified eyelid; Z96.649 Presence of unspecified artificial hip joint; R29.6 Repeated falls; Z66 Do not resuscitate; Z91.81 History of falling; Z79.82 Long term (current) use of aspirin; Z86.73 Personal history of transient ischemic attack (TIA), and cerebral infarction without residual deficits
CPT/HCPCS: 36415; 70450; 70551; 80048; 80053; 80061; 80074; 81001; 82607; 82746; 83690; 85025; 85610; 85651; 85730; 86705; 86709; 86803; 87340; 93005; 93306; 93880; 97116; 97161; 97165; 97530; 99284; 99285; A9270; G0378; J3411; 80320; 83721; 87086

== ENCOUNTER 2019-06-07 02:52 | Outpatient (CLI) | payer MEDICARE, OTHER | END 2019-06-07 02:53 | disposition critical access hospital (66) | LOC: EMS 02:52 | PROVIDERS: ATTEND Surgery | DX: R41.0 Disorientation, unspecified (principal); R47.9 Unspecified speech disturbances; R53.1 Weakness; R53.83 Other fatigue | CPT/HCPCS: A0425; A0427 ==

== ENCOUNTER 2019-06-07 03:03 | Emergency (ER) | payer MEDICARE, OTHER ==
--- NOTE | 2019-06-07 03:23 | ED Physician Documentation ---
PD HPI Fall - Stated complaint Stated Complaint: GLF - History obtained from History obtained from: Patient, EMS - History of Present Illness Mechanism of injury: Lost balance. No: Syncope Fall distance: Standing position Where injury occurred: Home Timing - onset: Today (Just prior to arrival) Injury(ies) location: Other (None) Associated symptoms: Weakness. No: LOC, Amnesia, Neck pain, Paresthesias, Dyspnea, Nausea / vomiting Contributing factors: No: Anticoagulated Similar symptoms before: Work up / diagnostics Recently seen: Emergency Dept, Admitted - Additional information Additional information: This is an 89-year-old man who lives alone and presents for the third time this week having fallen at home. On the first visit he had to have a laceration repaired on his scalp, he was admitted after the second visit and said "they ran every test they have at this joint". 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 He just went home yesterday and then tonight he got up in the middle the night to go to the bathroom with his walker when he kind of lost his balance was feeling little dizzy he leaned against the wall and just slid down the wall to the floor. He pushed his medical alert for a lift assist. Fire was the first on the scene and he was awake and totally with it but apparently when EMS arrived he was slumped over and was not responding really well. He seemed to have a "word salad". Patient himself says that he has a bit of a headache now but he did not hit his head. He did not pass out when he fell. He denies any injury to his extremities. He does not feel nauseous and he has not had any vomiting. Denies any urinary symptoms. He had no incontinence. He has had no nausea vomiting or diarrhea. He does have pre-existing weakness in his left leg and can only walk on it with the left knee locked. This is due to a hip replacement and he says is never worked properly after that. He does have some arthritis. He states he drinks 3 alcoholic drinks a day and smoked exactly 3 cigarettes tonight. He lives alone and has a caregiver that comes in frequently but he is alone at night. He has spent some time at [facility] in the past and states "I do not look forward to ever having to do that again". He was quick to point out to me that he has a purple armband which he explained to me indicates that he is a DNR. Review of Systems Constitutional: denies: Fever Eyes: denies: Loss of vision Ears: reports: Loss of hearing Nose: denies: Congestion Throat: denies: Sore throat Cardiac: denies: Chest pain / pressure, Palpitations Respiratory: denies: Dyspnea, Cough GI: denies: Abdominal Pain, Nausea, Vomiting : denies: Dysuria Skin: reports: Other (Bruises easy) Musculoskeletal: denies: Neck pain, Extremity pain Neurologic: reports: Headache. denies: Numbness, Syncope, Head injury, LOC PD PAST MEDICAL HISTORY - Present Medications Home Medications: Ambulatory Orders Medication Instructions Recorded Confirmed Aspirin [Children's Aspirin] 81 mg PO DAILY 09/15/13 04/13/18 Simvastatin [Zocor] 20 mg PO QPM 09/15/13 04/13/18 Timolol 0.5% Ophth Drops [Timoptic 1 drops EACHEYE BID 04/13/18 04/13/18 0.5% Ophth Drops] Multivitamin W/Minerals [Theragran 1 tab PO DAILYWM #30 tablet 04/17/18 M] Tamsulosin [Flomax] 0.4 mg PO DAILY #30 capsule 04/17/18 Metoprolol Succinate [Toprol Xl] 12.5 mg PO DAILY #15 tablet 06/06/19 Midodrine 2.5 mg PO TIDWM #90 tablet 06/06/19 Thiamine [Vitamin B-1] 100 mg PO DAILY #30 tablet 06/06/19 Midodrine 2.5 mg PO TID #6 tablet 06/07/19 - Allergies Allergies/Adverse Reactions: Allergies Allergy/AdvReac Type Severity Reaction Status Date / Time gold sodium thiomalate Allergy Intermediate Rash Verified 06/03/19 12:11 PD ED PE NORMAL - Vitals Vital signs reviewed: Yes - General General: Alert and oriented X 3, No acute distress, Well developed/nourished - HEENT HEENT: Atraumatic (Laceration on the scalp is healing well), PERRL, EOMI, Moist mucous membranes, Other (He is missing several teeth) - Neck Neck: No adenopathy, No bruit - Cardiac Cardiac: RRR, No murmur, Strong equal pulses - Respiratory Respiratory: No respiratory distress, Clear bilaterally - Abdomen Abdomen: Normal bowel sounds, Soft, Non tender, Non distended, No organomegaly - Derm Derm: Normal color, Warm and dry, Other (Scattered bruises on the upper extremities) - Extremities Extremities: No tenderness to palpate, Other (He has ulnar deviation at the MCP joints of the left hand with significant MCP joint swelling. This is not as pronounced as on the right hand. There is trace pedal edema of the left foot. No edema on the right.) - Neuro Neuro: Alert and oriented X 3, powder hand 2-12 intact, No sensory deficit, Normal speech, Other (He is unable to support the weight of his left leg to hold in the air but states that this is a chronic issue. He can lift the right leg off the bed. Is able to wiggle his toes bilaterally has 5 out of 5 engineering operator strength on the right and about 4+ out of 5 on the left. Sensation is intact light touch through the lower and upper extremities. Reflexes were 1+ at the right quadricep. I could not elicit a reflex at the left quadricep) - Psych Psych: Normal mood, Normal affect Results - Vitals Vitals: Vital Signs - 24 hr 06/07/19 06/07/19 06/07/19 03:10 05:14 05:33 Temperature 36.4 C L Heart Rate 81 78 Heart Rate [ 76 Sitting] Heart Rate [ 78 Supine] Respiratory 18 18 Rate Blood Pressure 124/94 H 151/71 H Blood Pressure 131/84 H [Sitting] Blood Pressure 151/71 H [Supine] O2 Saturation 98 92 Oxygen O2 Source [With Activity] Nasal cannula O2 Source [Without Activity] Nasal cannula O2 Source Room air - Labs Labs: Laboratory Tests 06/07/19 06/07/19 06/07/19 03:35 04:22 04:22 WBC 3.1 L RBC 4.07 L Hgb 14.1 Hct 39.9 L MCV 98.0 H MCH 34.6 H MCHC 35.3 RDW 14.2 Plt Count 137 MPV 10.0 Neut # (Auto) Not Reportable Lymph # (Auto) Not Reportable [place] # (Auto) Not Reportable Eos # (Auto) Not Reportable Baso # (Auto) Not Reportable Absolute Nucleated RBC Not Reportable Total Counted 100 Band Neuts % (Manual) 0 Abnorm Lymph % (Manual) 0 Nucleated RBC % Not Reportable Neutrophils # (Manual) 0.3 L* Lymphocytes # (Manual) 2.1 Monocytes # (Manual) 0.7 Eosinophils # (Manual) 0.0 Basophils # (Manual) 0.0 Differential Comment MANUAL DIFFERENTIAL WBC Morphology NORMAL APPEARANCE Platelet Estimate NORMAL (130-450,000) Platelet Morphology NORMAL APPEARANCE RBC Morph Micro Appear NORMAL APPEARANCE Sodium 136 Potassium 3.5 Chloride 100 L Carbon Dioxide 26 Anion Gap 10.0 BUN 13 Creatinine 0.8 Estimated GFR (MDRD) 91 Glucose 114 H Calcium 9.0 Urine Color YELLOW Urine Clarity CLEAR Urine pH 7.0 Ur Specific [place] 1.010 Urine Protein NEGATIVE Urine Glucose (UA) NEGATIVE Urine Ketones NEGATIVE Urine Occult Blood NEGATIVE Urine Nitrite NEGATIVE Urine Bilirubin NEGATIVE Urine Urobilinogen 1 (NORMAL) Ur Leukocyte Esterase NEGATIVE Ur Microscopic Review NOT INDICATED Urine Culture Comments NOT INDICATED PD MEDICAL DECISION MAKING - ED course Complexity details: reviewed results, d/w patient ED course: Patient is neutropenic which is chronic for him. BMP is normal. Had 750 cc of urine in his bladder straight cath was passed without any resistance the urine was clear and is negative. I went back for a more thorough neurologic examination of his lower extremities. I was unable to elicit quadricep reflexes in the right or left leg. He has a weakness in the left hip flexors. He has 5 out of 5 ankle dorsiflexion bilaterally. Babinski's downgoing bilaterally and sensation is in fact light touch in the lower extremities. Orthostatic vital signs were positive in the sense that the patient's prone blood pressure was in the 150s systolic dropped to 130 systolic sitting and then when he stood up he was so dizzy that he was not even able to be up long enough to get a blood pressure before we had to sit him down afraid that he was going to fall or pass out. Will discuss with the hospitalist. The patient was just discharged with diagnosis of orthostatic hypotension started on Midodrine which he is not been able to get filled yet and also consideration for lumbar spine MRI given the urinary retention and leg weakness. Departure - Departure Prescriptions: Midodrine 2.5 mg PO TID #6 tablet Comments: Go to a local pharmacy with the paper prescription for Midrin and get [place] Be sure to take that medicine 3 times a day. Follow-up with your primary care provider regarding reasons why you may have developed urinary retention which could require further outpatient work-up. Return as needed.
[2019-06-07 04:21] LABS: BILIRUBIN,URINE NEGATIVE (NEGATIVE); GLUCOSE, URINE (UA) NEGATIVE (NEGATIVE); KETONES,URINE (UA) NEGATIVE (NEGATIVE); LEUKOCYTE ESTERASE, URINE NEGATIVE (NEGATIVE); NITRITE,URINE NEGATIVE (NEGATIVE); OCCULT BLOOD,URINE NEGATIVE (NEGATIVE); PROTEIN,URINE NEGATIVE (NEGATIVE); UROBILINOGEN,URINE 1 (NORMAL) E.U./dL (NORMAL)
[2019-06-07 04:23] LABS: CLARITY,URINE CLEAR (CLEAR)
[2019-06-07 04:31] LABS: BASOPHILS % (AUTO) 0.3 %; EOSINOPHILS % (AUTO) 0.3 %; HGB - HEMOGLOBIN 14.1 g/dL (14.0-18.0); LYMPHOCYTES % (AUTO) 66.8 %; MEAN CORPUSCULAR HEMOGLOBIN 34.6 pg (27.0-31.0); MEAN CORPUSCULAR HGB CONC 35.3 g/dL (32.0-36.0); MONOCYTES % (AUTO) 19.7 %; NEUTROPHILS % (AUTO) 12.3 %; PLT - PLATELET COUNT 137 10^3/uL (130-450); RED BLOOD COUNT 4.07 10^6/uL (4.70-6.10); RED CELL DISTRIBUTION WIDTH 14.2 % (12.0-15.0); WHITE BLOOD COUNT 3.1 x10^3/uL (4.8-10.8)
[2019-06-07 04:39] LABS: CREATININE 0.8 mg/dL (0.6-1.2)
[2019-06-07 04:41] LABS: ABNORMAL LYMPHS % (MANUAL) 0 %; BAND NEUTROPHILS % (MANUAL) 0 %
[2019-06-07 05:09] LABS: DIFFERENTIAL COMMENT MANUAL DIFFERENTIAL; LYMPHOCYTES # (MANUAL) 2.1 10^3/uL (1.5-3.5); LYMPHOCYTES % (MANUAL) 69 %; MONOCYTES # (MANUAL) 0.7 10^3/uL (0.0-1.0); PLATELET ESTIMATE, MANUAL NORMAL (130-450,000) (NORMAL); PLATELET MORPHOLOGY NORMAL APPEARANCE (NORMAL); RBC MORPHOLOGY (MULTIPLE) NORMAL APPEARANCE (NORMAL)
[2019-06-07] MEDS ORDERED: NAPROXEN 250 MG TABLET PO STA (05:21)
[2019-06-07] MEDS: MIDODRINE 2.5 MG TABLET PO SCH ×2 (07:00→14:41)
[2019-06-07] MEDS ORDERED: FOLIC ACID INJ 1 MG, THIAMINE INJ 100 MG, MAGNESIUM SULFATE 2 GM, MULTIVITAMIN 10 ML in... IV STA ×5 (09:39)
--- NOTE | 2019-06-07 09:40 | ED Physician Documentation ---
History of Present Illness - Stated complaint Stated Complaint: GLF - Chief complaint Chief Complaint: Neuro - History obtained from History obtained from: Patient - History of Present Illness Timing: Today - Additonal information Additional information: 89-year-old male was recently did put in the hospital for a TIA with frequent falls and syncope came back to the hospital today after another episode of syncope last night at home. He was discharged on the prescription for Midrin which she was not able to obtain. He has been given the Midrin here in the e mergency department and a recheck of his orthostatics shows he is markedly orthostatic. PD PAST MEDICAL HISTORY - Past Medical History Past Medical History: Yes Cardiovascular: Hypertension, High cholesterol, Atrial fibrillation, Other Respiratory: COPD Neuro: None Endocrine/Autoimmune: None GI: None : Benign prostate hypertrophy HEENT: Glaucoma, Other Psych: None Musculoskeletal: Osteoarthritis, Rheumatoid arthritis Derm: None Other Past Medical History: orthostatic hypotension, ectropion of the eyes. - Past Surgical History Past Surgical History: Yes General: Appendectomy Ortho: Hip replacement HEENT: Cataracts, Detached retina repair, Tonsil/Adenoidectomy - Present Medications Home Medications: Ambulatory Orders Medication Instructions Recorded Confirmed Aspirin [Children's Aspirin] 81 mg PO DAILY 09/15/13 06/07/19 Simvastatin [Zocor] 20 mg PO QPM 09/15/13 06/07/19 Timolol 0.5% Ophth Drops [Timoptic 1 drops EACHEYE BID 04/13/18 06/07/19 0.5% Ophth Drops] Multivitamin W/Minerals [Theragran 1 tab PO DAILYWM #30 tablet 04/17/18 06/07/19 M] Tamsulosin [Flomax] 0.4 mg PO DAILY #30 capsule 04/17/18 06/07/19 Metoprolol Succinate [Toprol Xl] 12.5 mg PO DAILY #15 tablet 06/06/19 06/07/19 Midodrine 2.5 mg PO TIDWM #90 tablet 06/06/19 06/07/19 Thiamine [Vitamin B-1] 100 mg PO DAILY #30 tablet 06/06/19 06/07/19 Midodrine 5 mg PO TIDWM #30 tablet 06/07/19 - Allergies Allergies/Adverse Reactions: Allergies Allergy/AdvReac Type Severity Reaction Status Date / Time gold sodium thiomalate Allergy Intermediate Rash Verified 06/03/19 12:11 - Social History Does the pt smoke?: Yes Smoking Status: Current every day smoker Does the pt drink ETOH?: Yes Does the pt have substance abuse?: No - Immunizations Immunizations are current?: Yes - POLST Patient has POLST: Yes PD ED PE NORMAL - Vitals Vital signs reviewed: Yes - General General: No acute distress, Well developed/nourished, Other (dry and "crusty" ap pearing male with poor dentition is interactive and pleasant) - HEENT HEENT: Atraumatic, PERRL, EOMI, Other (dry mucous membranes ) - Neck Neck: Supple, no meningeal sign, No bony TTP - Cardiac Cardiac: RRR, No murmur - Respiratory Respiratory: No respiratory distress, Clear bilaterally - Abdomen Abdomen: Soft, Non tender - Back Back: No CVA TTP, No spinal TTP - Derm Derm: Normal color, Warm and dry, No rash - Extremities Extremities: No deformity, No edema - Neuro Neuro: Alert and oriented X 3, regulatory affairs manager 2-12 intact, No motor deficit, No sensory deficit, Normal speech Eye Opening: Spontaneous Motor: Obeys Commands Verbal: Oriented GCS Score: 15 - Psych Psych: Normal mood, Normal affect Results - Vitals Vitals: Vital Signs - 24 hr 06/07/19 06/07/19 06/07/19 03:10 05:14 05:33 Temperature 36.4 C L Heart Rate 81 78 Heart Rate [ 76 Sitting] Heart Rate [ Standing] Heart Rate [ 78 Supine] Respiratory 18 18 Rate Blood Pressure 124/94 H 151/71 H Blood Pressure 131/84 H [Sitting] Blood Pressure [Standing] Blood Pressure 151/71 H [Supine] O2 Saturation 98 92 06/07/19 06/07/19 06/07/19 07:24 09:02 10:23 Temperature Heart Rate 59 L 72 Heart Rate [ 97 Sitting] Heart Rate [ Standing] Heart Rate [ 79 Supine] Respiratory 20 20 Rate Blood Pressure 162/75 H 156/81 H Blood Pressure 138/115 H [Sitting] Blood Pressure [Standing] Blood Pressure 143/72 H [Supine] O2 Saturation 96 94 06/07/19 06/07/19 12:45 14:05 Temperature Heart Rate 69 Heart Rate [ 88 Sitting] Heart Rate [ 141 H Standing] Heart Rate [ 82 Supine] Respiratory Rate Blood Pressure 161/73 H Blood Pressure 164/92 H [Sitting] Blood Pressure 126/106 H [Standing] Blood Pressure 182/76 H [Supine] O2 Saturation 95 Oxygen O2 Source [With Activity] Nasal cannula O2 Source [Without Activity] Nasal cannula O2 Source Room air - Labs Labs: Laboratory Tests 06/07/19 06/07/19 06/07/19 03:35 04:22 04:22 WBC 3.1 L RBC 4.07 L Hgb 14.1 Hct 39.9 L MCV 98.0 H MCH 34.6 H MCHC 35.3 RDW 14.2 Plt Count 137 MPV 10.0 Neut # (Auto) Not Reportable Lymph # (Auto) Not Reportable [place] # (Auto) Not Reportable Eos # (Auto) Not Reportable Baso # (Auto) Not Reportable Absolute Nucleated RBC Not Reportable Total Counted 100 Band Neuts % (Manual) 0 Abnorm Lymph % (Manual) 0 Nucleated RBC % Not Reportable Neutrophils # (Manual) 0.3 L* Lymphocytes # (Manual) 2.1 Monocytes # (Manual) 0.7 Eosinophils # (Manual) 0.0 Basophils # (Manual) 0.0 Differential Comment MANUAL DIFFERENTIAL WBC Morphology NORMAL APPEARANCE Platelet Estimate NORMAL (130-450,000) Platelet Morphology NORMAL APPEARANCE RBC Morph Micro Appear NORMAL APPEARANCE Sodium 136 Potassium 3.5 Chloride 100 L Carbon Dioxide 26 Anion Gap 10.0 BUN 13 Creatinine 0.8 Estimated GFR (MDRD) 91 Glucose 114 H Calcium 9.0 Urine Color YELLOW Urine Clarity CLEAR Urine pH 7.0 Ur Specific [place] 1.010 Urine Protein NEGATIVE Urine Glucose (UA) NEGATIVE Urine Ketones NEGATIVE Urine Occult Blood NEGATIVE Urine Nitrite NEGATIVE Urine Bilirubin NEGATIVE Urine Urobilinogen 1 (NORMAL) Ur Leukocyte Esterase NEGATIVE Ur Microscopic Review NOT INDICATED Urine Culture Comments NOT INDICATED Procedures - IVC sono (time) 0935 Bedside IVC sono: IVC measures (cm) (0.87), Dehydration (est 2 liter deficit) PD MEDICAL DECISION MAKING - ED course Complexity details: reviewed old records, reviewed results, re-evaluated patient, considered differential, d/w patient ED course: 89-year-old male with recent admission for TIA has orthostatic hypotension and a plan yesterday was made for the patient to get some Midodrin and he was unable to obtain that and had another fall at home. He was brought back to the emergency department. He was in the emergency department overnight and he was provided with the Midodrin this morning with the intention of seeing if this would work to help his symptoms. His care was turned over to me by Dr. Solis this morning at shift change and on my evaluation of the patient he appeared to be dehydrated on the level of 2 L of fluid and he has a history of alcoholism with 3-4 drinks per day and he is provided a banana bag intravenously and a liter of saline. His symptoms were some better but he did not pass a road test. He had significant symptoms and a 40 point drop in his systolic blood pressure with standing. His heart rate went up to 140 as well. I do not think this is all related just to his dehydration as we have provided adequate fluid to replete this. At shift change the plan was to see if the Midodrin helped and if it did not he was to be back into the hospital. I believe he has failed his trial of Midodrin and he has failed a trial of IV hydration. I spoke with the hospitalist Dr. Levine about the patient and his predicament and she recommended we increase the dose of the Midrin to 5 mg 3 times a day and she feels that this would be the maximum treatment and benefit and hospitalization is not indicated. Departure - Departure Disposition: 01 Home, Self Care Clinical Impression: Dehydration, Orthostatic hypotension Falls Qualifiers: Encounter type: initial encounter Qualified Code(s): W19.XXXA - Unspecified fall, initial encounter Condition: Stable Instructions: ED Dehydration, ED Hypotension Orthostatic Prescriptions: Midodrine 2.5 mg PO TID #6 tablet Midodrine 5 mg PO TIDWM #30 tablet Comments: Go to a local pharmacy with the paper prescription for Midrin and get [place] Be sure to take that medicine 3 times a day. Follow-up with your primary care provider regarding reasons why you may have developed urinary retention which could require further outpatient work-up. Return as needed.
[2019-06-07] MEDS ORDERED: SODIUM CHLORIDE 0.9% 1,000 ML IV ONE (12:31)
[2019-06-07] MEDS ORDERED: MIDODRINE 2.5 MG TABLET PO STA (15:39)
[2019-06-07 19:19] VITALS: BP 154/78
== END 2019-06-07 19:47 | disposition home or self-care (01) ==
LOC: EDUNIT# → ED 03:03
DX: I95.1 Orthostatic hypotension (principal); E86.0 Dehydration; R29.898 Other symptoms and signs involving the musculoskeletal system; R33.9 Retention of urine, unspecified; D70.9 Neutropenia, unspecified; W18.30XA Fall on same level, unspecified, initial encounter; Y93.01 Activity, walking, marching and hiking; Y92.009 Unspecified place in unspecified non-institutional (private) residence as the place of occurrence of the external cause; Z91.81 History of falling; I10 Essential (primary) hypertension; F17.210 Nicotine dependence, cigarettes, uncomplicated; F10.20 Alcohol dependence, uncomplicated; Z86.73 Personal history of transient ischemic attack (TIA), and cerebral infarction without residual deficits; Z79.82 Long term (current) use of aspirin; M19.90 Unspecified osteoarthritis, unspecified site; M06.9 Rheumatoid arthritis, unspecified; Z96.649 Presence of unspecified artificial hip joint; Z66 Do not resuscitate
CPT/HCPCS: 36415; 51701; 51798; 80048; 81003; 85025; 96361; 96365; 99284; A9270; J3411; 81001; 87086

== ENCOUNTER 2019-06-16 13:15 | Outpatient (CLI) | payer MEDICARE, OTHER ==
[2019-06-16 18:38] LABS: BASOPHILS % (AUTO) 0.3 %; EOSINOPHILS % (AUTO) 0.5 %; HGB - HEMOGLOBIN 14.6 g/dL (14.0-18.0); LYMPHOCYTES # (AUTO) 4.6 10^3/uL (1.5-3.5); LYMPHOCYTES % (AUTO) 76.3 %; MEAN CORPUSCULAR HEMOGLOBIN 33.5 pg (27.0-31.0); MEAN CORPUSCULAR HGB CONC 34.1 g/dL (32.0-36.0); MEAN CORPUSCULAR VOLUME 98.2 fL (80.0-94.0); MEAN PLATELET VOLUME 10.8 fL (7.4-11.4); MONOCYTES # (AUTO) 0.8 10^3/uL (0.0-1.0); MONOCYTES % (AUTO) 13.1 %; NEUTROPHILS % (AUTO) 9.8 %; PLT - PLATELET COUNT 234 10^3/uL (130-450); RED BLOOD COUNT 4.36 10^6/uL (4.70-6.10); RED CELL DISTRIBUTION WIDTH 13.9 % (12.0-15.0)
[2019-06-16 19:02] LABS: ALBUMIN 3.5 g/dL (3.2-5.5); ALBUMIN/GLOBULIN RATIO 0.9 (1.0-2.2); ALKALINE PHOSPHATASE 83 IU/L (42-121); ALT ALANINE AMINOTRANSFERASE 17 IU/L (10-60); AST ASPARTATE AMINOTRANSFERASE 25 IU/L (10-42); BILIRUBIN,TOTAL 0.8 mg/dL (0.2-1.0); BUN - BLOOD UREA NITROGEN 16 mg/dL (6-20); CALCIUM 9.1 mg/dL (8.5-10.3); CARBON DIOXIDE - CO2 27 mmol/L (21-32); CHLORIDE 99 mmol/L (101-111); CHOL/HDL RATIO 4.7 (<5.0); CHOLESTEROL 178 mg/dL; CREATININE 0.8 mg/dL (0.6-1.2); GFR - MDRD 91 (>89); GLUCOSE 118 mg/dL (70-100); HDL CHOLESTEROL 38 mg/dL; LDL CHOLESTEROL,CALCULATED 117 mg/dL; LDL/HDL RATIO 3.1 (<3.6); SODIUM 134 mmol/L (135-145); TOTAL PROTEIN 7.5 g/dL (6.7-8.2); VLDL CHOLESTEROL 23 mg/dL
[2019-06-16 19:07] LABS: NEUTROPHILS # (AUTO) 0.6 10^3/uL (1.5-6.6)
== END 2019-06-16 23:59 | disposition home or self-care (01) ==
LOC: LAB.N 13:15
PROVIDERS: ATTEND Family Medicine
DX: E87.1 Hypo-osmolality and hyponatremia (principal); I10 Essential (primary) hypertension; E78.5 Hyperlipidemia, unspecified; E51.9 Thiamine deficiency, unspecified
CPT/HCPCS: 36415; 80053; 80061; 83721; 84425; 84443; 85025

== ENCOUNTER 2019-10-12 23:34 | Outpatient (CLI) | payer MEDICARE, OTHER | END 2019-10-12 23:35 | disposition critical access hospital (66) | LOC: EMS 23:34 | PROVIDERS: ATTEND Surgery | DX: S01.01XA Laceration without foreign body of scalp, initial encounter (principal); W01.190A Fall on same level from slipping, tripping and stumbling with subsequent striking against furniture, initial encounter; Y92.009 Unspecified place in unspecified non-institutional (private) residence as the place of occurrence of the external cause | CPT/HCPCS: A0425; A0429 ==

== ENCOUNTER 2019-10-12 23:45 | Emergency (ER) | payer MEDICARE, OTHER ==
--- NOTE | 2019-10-12 23:56 | ED Physician Documentation ---
PD HPI Fall - Stated complaint Stated Complaint: ETOH, FELL, HIT HEAD - History obtained from History obtained from: Patient - History of Present Illness Mechanism of injury: Lost balance Fall distance: Standing position Where injury occurred: Home Timing - onset: How many minutes ago (approximately 30 minutes seating captain) Injury(ies) location: Head Associated symptoms: Neck pain, Other (patient isn't sure if he had LOC or not). No: Weakness, Paresthesias, Nausea / vomiting Contributing factors: Other (patient says he is unsure if he is on a blood thinner; list provided by medics indicates aspirin is only blood-thinning medication. patient admits to having some scotch tonight) Recently seen: Not recently seen - Additional information Additional information: patient got up out of his "easy chair" to go to bed. He says he was in the dark and lost his balance, causing him to fall. he struck his head on the coffee table. Unsure if LOC, but doesn't believe so. He presents due to scalp laceration. Review of Systems Eyes: reports: Reviewed and negative Cardiac: reports: Reviewed and negative Respiratory: reports: Reviewed and negative GI: reports: Reviewed and negative Skin: reports: Laceration (s) Musculoskeletal: reports: Neck pain. denies: Back pain, Extremity pain, Joint pain Neurologic: reports: Head injury. denies: Generalized weakness, Focal weakness, Numbness, Headache PD PAST MEDICAL HISTORY - Past Medical History Cardiovascular: Hypertension, High cholesterol, Atrial fibrillation, Other Respiratory: COPD Neuro: None Endocrine/Autoimmune: None GI: None : Benign prostate hypertrophy HEENT: Glaucoma, Other Psych: None Musculoskeletal: Osteoarthritis, Rheumatoid arthritis Derm: None - Past Surgical History Past Surgical History: Yes General: Appendectomy Ortho: Hip replacement HEENT: Cataracts, Detached retina repair, Tonsil/Adenoidectomy - Present Medications Home Medications: Ambulatory Orders Medication Instructions Recorded Confirmed Aspirin [Children's Aspirin] 81 mg PO DAILY 09/15/13 06/07/19 Simvastatin [Zocor] 20 mg PO QPM 09/15/13 06/07/19 Timolol 0.5% Ophth Drops [Timoptic 1 drops EACHEYE BID 04/13/18 06/07/19 0.5% Ophth Drops] Multivitamin W/Minerals [Theragran 1 tab PO DAILYWM #30 tablet 04/17/18 06/07/19 M] Tamsulosin [Flomax] 0.4 mg PO DAILY #30 capsule 04/17/18 06/07/19 Metoprolol Succinate [Toprol Xl] 12.5 mg PO DAILY #15 tablet 06/06/19 06/07/19 Midodrine 2.5 mg PO TIDWM #90 tablet 06/06/19 06/07/19 Thiamine [Vitamin B-1] 100 mg PO DAILY #30 tablet 06/06/19 06/07/19 Midodrine 5 mg PO TIDWM #30 tablet 06/07/19 - Allergies Allergies/Adverse Reactions: Allergies Allergy/AdvReac Type Severity Reaction Status Date / Time gold sodium thiomalate Allergy Intermediate Rash Verified 06/03/19 12:11 - Social History Does the pt smoke?: Yes Smoking Status: Current every day smoker Does the pt drink ETOH?: Yes Does the pt have substance abuse?: No - Immunizations Immunizations are current?: Yes - POLST Patient has POLST: Yes PD ED PE NORMAL - Vitals Vital signs reviewed: Yes - General General: Alert and oriented X 3, No acute distress, Well developed/nourished - HEENT HEENT: Moist mucous membranes - Neck Neck: No bony TTP - Cardiac Cardiac: No murmur - Respiratory Respiratory: No respiratory distress, Clear bilaterally - Abdomen Abdomen: Soft, Non tender - Back Back: No spinal TTP - Derm Derm: Normal color, Warm and dry - Extremities Extremities: No deformity, No tenderness to palpate, Normal ROM s pain - Neuro Neuro: Alert and oriented X 3, rerecording mixer 2-12 intact, No motor deficit, No sensory deficit, Normal speech Eye Opening: Spontaneous Motor: Obeys Commands Verbal: Oriented GCS Score: 15 - Psych Psych: Normal mood, Normal affect PD ED PE EXPANDED - HEENT HEENT: Pupils unequal (2 mm discrepency (right pupil is 2 mm smaller and less reactive to light). ), EOMI HEENT Visual: 1 - laceration (5 cm cresentic laceration) 2 - laceration (4 cm linear) - Cardiac Cardiac: Irregularly irregular Results - Vitals Vitals: Vital Signs - 24 hr 10/12/19 10/13/19 23:58 02:11 Temperature 36.5 C Heart Rate 82 71 Respiratory 22 19 Rate Blood Pressure 185/85 H 198/102 H O2 Saturation 96 98 Oxygen O2 Source [] Nasal cannula O2 Source [] Nasal cannula O2 Source Room air - Rads (name of study) CT head Radiology: Prelim report reviewed, See rad report CT neck Radiology: Prelim report reviewed, See rad report Procedures - Laceration (location) Scalp Length in cm: 9 (total length 2 lacerations) Wound type: Linear, Curved Neurovascular status: Sensory intact, Motor intact, Vascular intact Anesthesia: Lidocaine 1% Wound Preparation: Chlorhexadine Skin layer closure: Vanessa (laceration 2 (see diagram)), Running (laceration 1 (see diagram)), Size #-0 - enter number (4-0) Other: Patient tolerated well, No complications, Neurovascular intact, Dressing applied Complexity: Simple PD MEDICAL DECISION MAKING - ED course Complexity details: reviewed results, re-evaluated patient, considered differential, d/w patient Departure - Departure Disposition: 01 Home, Self Care Clinical Impression: Scalp laceration Qualifiers: Encounter type: initial encounter Qualified Code(s): S01.01XA - Laceration without foreign body of scalp, initial encounter Fall Qualifiers: Encounter type: initial encounter Qualified Code(s): W19.XXXA - Unspecified fall, initial encounter Condition: Good Instructions: ED Laceration Scalp Stitch Or Stap, ED Fall Dizziness Weakn Balance Comments: FOLLOW UP WITH YOUR DOCTOR IN 7-10 DAYS FOR REMOVAL OF THE STITCHES
[2019-10-13] MEDS ORDERED: LIDOCAINE 1%-EPI 1:100000 20 ML MDV SUBQ STA (00:16)
--- NOTE | 2019-10-13 01:06 | CT Report ---
Reason: fall, head injury Procedure Date: 10/13/2019 Accession Number: [id number] / [id number] Procedure: CT - HEAD WO CPT Code: Final Report FULL RESULT: EXAM: CT HEAD EXAM DATE: 10/13/2019 12:41 AM. CLINICAL HISTORY: Fall, head injury. COMPARISON: HEAD W/O 06/03/2019 12:50 PM. TECHNIQUE: Multiaxial CT images were obtained from the foramen magnum to the vertex. Reformats: Sagittal and coronal. IV contrast: None. In accordance with CT protocol optimization, one or more of the following dose reduction techniques were utilized for this exam: automated exposure control, adjustment of mA and/or KV based on patient size, or use of iterative reconstructive technique. FINDINGS: Parenchyma: No intraparenchymal hemorrhage. No evidence of mass, midline shift, or CT findings of infarction. Valdes-white differentiation is distinct. Extraaxial Spaces: Unchanged generalized parenchymal volume loss. No subdural or epidural collections identified. Ventricles: Normal in size and position. Sinuses and Orbits: Imaged paranasal sinuses, orbits, and mastoids show no significant abnormality. Bones: No evidence of fracture or calvarial defect. Other: Forehead scalp contusion. Right occipital scalp laceration with soft tissue gas. IMPRESSION: 1. No acute intracranial hemorrhage. 2. Unchanged generalized cerebral volume loss. 3. Scalp laceration and contusion. RAD[facility]
--- NOTE | 2019-10-13 01:14 | CT Report ---
Reason: fall, neck pain Procedure Date: 10/13/2019 Accession Number: [id number] / [id number] Procedure: CT - CERVICAL SPINE WO CPT Code: Final Report FULL RESULT: EXAM: CT CERVICAL SPINE WITHOUT CONTRAST DATE: 10/13/2019 12:43 AM. HISTORY: Fall, neck pain. COMPARISONS: HEAD W/O 10/13/2019 12:28 AM CERVICAL SPINE W/O 06/02/2019 5:01 AM CERVICAL SPINE W/O 10/13/2019 12:32 AM. TECHNIQUE: Thin-section axial images were acquired of the cervical spine without contrast. Post-processing: Coronal and sagittal reformats. Other: None. In accordance with CT protocol optimization, one or more of the following dose reduction techniques were utilized for this exam: automated exposure control, adjustment of mA and/or KV based on patient size, or use of iterative reconstructive technique. FINDINGS: Alignment: No scoliosis or spondylolisthesis. Mild reversal of the normal cervical lordosis. Bones: No fracture or bone lesion. Interspace Levels/Facets: C1-C2: Narrowed atlantodental interval with osteophyte formation. C2-C3: Mild diffuse disk bulge and facet hypertrophy. C3-C4: Mild diffuse disk bulge and right facet hypertrophy. C4-C5: Moderate disk space narrowing and right facet hypertrophy. C5-C6: Moderate disk space narrowing and diffuse disk bulge with posterior osteophytes and bilateral facet hypertrophy. Bilateral neural foraminal stenosis. C6-C7: Moderate disk space narrowing with posterior osteophytes and bilateral facet hypertrophy. Bilateral neural foraminal stenosis. C7-T1: Moderate disk space narrowing. Musculature: Normal for age. Other: Biapical nodular pleural thickening and blebs. Atherosclerotic plaque calcifications in the carotid arteries. The paravertebral and prevertebral soft tissues are within normal limits. 1.1 cm hypoattenuating left thyroid lesion, unchanged. IMPRESSION: 1. No evidence of acute fracture. 2. Multilevel cervical spine degenerative changes. RADIA
[2019-10-13 02:14] VITALS: BP 198/102
== END 2019-10-13 03:20 | disposition home or self-care (01) ==
LOC: EDUNIT# → ED 23:45
DX: S01.01XA Laceration without foreign body of scalp, initial encounter (principal); W19.XXXA Unspecified fall, initial encounter; W22.03XA Walked into furniture, initial encounter; Y93.89 Activity, other specified; Y92.009 Unspecified place in unspecified non-institutional (private) residence as the place of occurrence of the external cause; I10 Essential (primary) hypertension; F17.200 Nicotine dependence, unspecified, uncomplicated
CPT/HCPCS: 12004; 70450; 72125; 99282; 99284

== ENCOUNTER 2020-04-20 21:44 | Outpatient (CLI) | payer MEDICARE, OTHER | END 2020-04-20 21:45 | disposition critical access hospital (66) | LOC: EMS 21:44 | PROVIDERS: ATTEND Surgery | DX: S09.90XA Unspecified injury of head, initial encounter (principal); R53.1 Weakness; W18.39XA Other fall on same level, initial encounter; Y92.003 Bedroom of unspecified non-institutional (private) residence as the place of occurrence of the external cause | CPT/HCPCS: A0425; A0427 ==

== ENCOUNTER 2020-04-20 21:56 | Inpatient (IN) | payer MEDICARE, OTHER ==
--- NOTE | 2020-04-20 21:47 | ED Physician Documentation ---
History of Present Illness - Stated complaint Stated Complaint: CVA - History obtained from History obtained from: Patient - Additonal information Additional information: the patient is a 89 Y/O M who p via ambulance with a cc of fall and right sided facial droop. patient states he was drinking alcohol earlier today, passed out and then woke up and noticed he had a right sided facial droop. his last known normal is unknown. remainder of the history is unknown. Review of Systems Constitutional: reports: Reviewed and negative Eyes: reports: Reviewed and negative Ears: reports: Reviewed and negative Nose: reports: Reviewed and negative Throat: reports: Reviewed and negative Cardiac: reports: Reviewed and negative Respiratory: reports: Reviewed and negative GI: reports: Reviewed and negative : reports: Reviewed and negative Skin: reports: Reviewed and negative Musculoskeletal: reports: Reviewed and negative Neurologic: reports: Focal weakness, Other (Right-sided facial droop) Psychiatric: reports: Reviewed and negative Endocrine: reports: Reviewed and negative Immunocompromised: reports: Reviewed and negative PD PAST MEDICAL HISTORY - Present Medications Home Medications: Ambulatory Orders Medication Instructions Recorded Confirmed Aspirin [Children's Aspirin] 81 mg PO DAILY 09/15/13 06/07/19 Simvastatin [Zocor] 20 mg PO QPM 09/15/13 06/07/19 Timolol 0.5% Ophth Drops [Timoptic 1 drops EACHEYE BID 04/13/18 06/07/19 0.5% Ophth Drops] Multivitamin W/Minerals [Theragran 1 tab PO DAILYWM #30 tablet 04/17/18 06/07/19 M] Tamsulosin [Flomax] 0.4 mg PO DAILY #30 capsule 04/17/18 06/07/19 Metoprolol Succinate [Toprol Xl] 12.5 mg PO DAILY #15 tablet 06/06/19 06/07/19 Midodrine 2.5 mg PO TIDWM #90 tablet 06/06/19 06/07/19 Thiamine [Vitamin B-1] 100 mg PO DAILY #30 tablet 06/06/19 06/07/19 Midodrine 5 mg PO TIDWM #30 tablet 06/07/19 - Allergies Allergies/Adverse Reactions: Allergies Allergy/AdvReac Type Severity Reaction Status Date / Time gold sodium thiomalate Allergy Intermediate Rash Verified 04/20/20 22:04 PD ED PE NORMAL - Vitals Vital signs reviewed: Yes - General General: Alert and oriented X 3, No acute distress, Well developed/nourished - HEENT HEENT: PERRL, Other (There is a right-sided facial droop noted with no involvement of the forehead.) - Neck Neck: Supple, no meningeal sign - Cardiac Cardiac: RRR, No murmur, Strong equal pulses - Respiratory Respiratory: No respiratory distress, Clear bilaterally - Abdomen Abdomen: Normal bowel sounds, Soft, Non tender, Non distended - Derm Derm: Warm and dry, Other (Minor skin tear to the left hand) - Extremities Extremities: No deformity - Neuro Neuro: Alert and oriented X 3, Other (There is a facial droop noted on the right side there is no on involvement of the forehead. Minimal RUE drift, does not hit the bed. There is mild dysarthria, there is no aphasia. NIH 3.) - Psych Psych: Normal mood, Normal affect Results - Vitals Vitals: Vital Signs - 24 hr 04/20/20 04/20/20 04/20/20 22:01 22:06 23:04 Temperature 36.1 C L Heart Rate 66 62 84 Respiratory 16 14 14 Rate Blood Pressure 180/88 H 180/88 H 152/90 H O2 Saturation 99 62 L 97 04/20/20 23:30 Temperature Heart Rate 82 Respiratory 16 Rate Blood Pressure 174/89 H O2 Saturation 98 Oxygen O2 Source [With Activity] Nasal cannula O2 Source [Without Activity] Nasal cannula O2 Source Room air - EKG (time done) 22:23 Rate: Other (no stemi) - Labs Labs: Laboratory Tests 04/20/20 04/20/20 04/20/20 22:15 22:15 22:15 WBC 5.8 RBC 4.33 L Hgb 14.2 Hct 41.2 L MCV 95.2 H MCH 32.8 H MCHC 34.5 RDW 14.2 Plt Count 162 MPV 9.9 Neut # (Auto) Not Reportable Lymph # (Auto) Not Reportable [place] # (Auto) Not Reportable Eos # (Auto) Not Reportable Baso # (Auto) Not Reportable Absolute Nucleated RBC Not Reportable Total Counted 100 Band Neuts % (Manual) 0 Reactive Lymphs % (Man) 3 Abnorm Lymph % (Manual) 0 Nucleated RBC % Not Reportable Neutrophils # (Manual) 0.3 L* Lymphocytes # (Manual) 5.0 H Monocytes # (Manual) 0.5 Eosinophils # (Manual) 0.1 Basophils # (Manual) 0.0 Differential Comment MANUAL DIFFERENTIAL Platelet Estimate NORMAL (130-450,000) RBC Morph Micro Appear NORMAL APPEARANCE PT 11.8 INR 1.1 APTT 27.0 Sodium 129 L Potassium 3.5 Chloride 91 L Carbon Dioxide 25 Anion Gap 13.0 BUN 12 Creatinine 0.7 Estimated GFR (MDRD) 106 Glucose 84 Lactic Acid Calcium 8.6 Magnesium 1.9 Total Bilirubin 0.6 AST 24 ALT 15 Alkaline Phosphatase 65 Total Creatine Kinase 59 Troponin I High Sens B-Natriuretic Peptide Total Protein 6.7 Albumin 3.1 L Globulin 3.6 Albumin/Globulin Ratio 0.9 L Lipase 53 H Urine Color Urine Clarity Urine pH Ur Specific [place] Urine Protein Urine Glucose (UA) Urine Ketones Urine Occult Blood Urine Nitrite Urine Bilirubin Urine Urobilinogen Ur Leukocyte Esterase Urine RBC Urine WBC Ur Squamous Epith Cells Urine Bacteria Ur Microscopic Review Urine Culture Comments Urine Opiates Screen Ur Oxycodone Screen Urine Methadone Screen Ur Propoxyphene Screen Ur Barbiturates Screen Ur Tricyclics Screen Ur Phencyclidine Scrn Ur Amphetamine Screen U Methamphetamines Scrn U Benzodiazepines Scrn Urine Cocaine Screen U Cannabinoids Screen Ethyl Alcohol 73.6 04/20/20 04/20/20 04/20/20 22:15 22:15 22:18 WBC RBC Hgb Hct MCV MCH MCHC RDW Plt Count MPV Neut # (Auto) Lymph # (Auto) [place] # (Auto) Eos # (Auto) Baso # (Auto) Absolute Nucleated RBC Total Counted Band Neuts % (Manual) Reactive Lymphs % (Man) Abnorm Lymph % (Manual) Nucleated RBC % Neutrophils # (Manual) Lymphocytes # (Manual) Monocytes # (Manual) Eosinophils # (Manual) Basophils # (Manual) Differential Comment Platelet Estimate RBC Morph Micro Appear PT INR APTT Sodium Potassium Chloride Carbon Dioxide Anion Gap BUN Creatinine Estimated GFR (MDRD) Glucose Lactic Acid 4.2 H* Calcium Magnesium Total Bilirubin AST ALT Alkaline Phosphatase Total Creatine Kinase Troponin I High Sens 7.6 B-Natriuretic Peptide 116 H Total Protein Albumin Globulin Albumin/Globulin Ratio Lipase Urine Color Urine Clarity Urine pH Ur Specific [place] Urine Protein Urine Glucose (UA) Urine Ketones Urine Occult Blood Urine Nitrite Urine Bilirubin Urine Urobilinogen Ur Leukocyte Esterase Urine RBC Urine WBC Ur Squamous Epith Cells Urine Bacteria Ur Microscopic Review Urine Culture Comments Urine Opiates Screen Ur Oxycodone Screen Urine Methadone Screen Ur Propoxyphene Screen Ur Barbiturates Screen Ur Tricyclics Screen Ur Phencyclidine Scrn Ur Amphetamine Screen U Methamphetamines Scrn U Benzodiazepines Scrn Urine Cocaine Screen U Cannabinoids Screen Ethyl Alcohol 04/20/20 23:30 WBC RBC Hgb Hct MCV MCH MCHC RDW Plt Count MPV Neut # (Auto) Lymph # (Auto) [place] # (Auto) Eos # (Auto) Baso # (Auto) Absolute Nucleated RBC Total Counted Band Neuts % (Manual) Reactive Lymphs % (Man) Abnorm Lymph % (Manual) Nucleated RBC % Neutrophils # (Manual) Lymphocytes # (Manual) Monocytes # (Manual) Eosinophils # (Manual) Basophils # (Manual) Differential Comment Platelet Estimate RBC Morph Micro Appear PT INR APTT Sodium Potassium Chloride Carbon Dioxide Anion Gap BUN Creatinine Estimated GFR (MDRD) Glucose Lactic Acid Calcium Magnesium Total Bilirubin AST ALT Alkaline Phosphatase Total Creatine Kinase Troponin I High Sens B-Natriuretic Peptide Total Protein Albumin Globulin Albumin/Globulin Ratio Lipase Urine Color YELLOW Urine Clarity HAZY Urine pH 6.5 Ur Specific [place] 1.010 Urine Protein NEGATIVE Urine Glucose (UA) NEGATIVE Urine Ketones NEGATIVE Urine Occult Blood NEGATIVE Urine Nitrite NEGATIVE Urine Bilirubin NEGATIVE Urine Urobilinogen 1 (NORMAL) Ur Leukocyte Esterase MODERATE H Urine RBC 0-5 Urine WBC 11-25 H Ur Squamous Epith Cells FEW Squamous Urine Bacteria Moderate H Ur Microscopic Review INDICATED Urine Culture Comments INDICATED Urine Opiates Screen NEGATIVE Ur Oxycodone Screen NEGATIVE Urine Methadone Screen NEGATIVE Ur Propoxyphene Screen NEGATIVE Ur Barbiturates Screen NEGATIVE Ur Tricyclics Screen NEGATIVE Ur Phencyclidine Scrn NEGATIVE Ur Amphetamine Screen NEGATIVE U Methamphetamines Scrn NEGATIVE U Benzodiazepines Scrn NEGATIVE Urine Cocaine Screen NEGATIVE U Cannabinoids Screen NEGATIVE Ethyl Alcohol PD MEDICAL DECISION MAKING - ED course Complexity details: reviewed old records, reviewed results, re-evaluated patient, considered differential, d/w patient, other ED course: 89-year-old male brought in as a stroke alert. Last known normal time is unknown. Apparently patient had been drinking some alcohol and when he woke up he noticed a right-sided facial droop. His CT of the head and neck are unremarkable. He is not a TPA candidate given his low NIH score and improving symptoms and the fact that his last known normal time is unknown. EKG shows no STEMI his troponins negative lactate was mildly elevated he was given a banana bag and IV fluid hydration. Patient will be admitted for a CVA and UTI for IV antibiotics and MRI of the brain and stroke work-up - Consults Consults: Discussed case with (dr. kaye. will admit) - Critical Care Time(min): 30 Time Includes: Direct patient care, Review records, Reassess patient, Document care, Coordinate care, Medical consult Data interpretation: Labs, CXR, Prior EKG Procedures included in critical care time: Peripheral IV Procedures excluded from critical care time: EKG Departure - Departure Disposition: 66 [facility] DC/Xfer Clinical Impression: Hyponatremia Cerebrovascular accident (CVA) Qualifiers: CVA mechanism: unspecified Qualified Code(s): I63.9 - Cerebral infarction, unspecified UTI (urinary tract infection) Qualifiers: Urinary tract infection type: site unspecified Hematuria presence: without hematuria Qualified Code(s): N39.0 - Urinary tract infection, site not specified Condition: Stable
[2020-04-20] MEDS ORDERED: IOVERSOL 320 100 ML VIAL IVP ONE ×2 (22:15→23:09)
[2020-04-20 22:26] LABS: EOSINOPHILS % (AUTO) 0.5 %
[2020-04-20 22:30] LABS: BASOPHILS % (AUTO) 0.3 %; HGB - HEMOGLOBIN 14.2 g/dL (14.0-18.0); LYMPHOCYTES % (AUTO) 85.6 %; MEAN CORPUSCULAR HEMOGLOBIN 32.8 pg (27.0-31.0); MEAN CORPUSCULAR HGB CONC 34.5 g/dL (32.0-36.0); MEAN CORPUSCULAR VOLUME 95.2 fL (80.0-94.0); MEAN PLATELET VOLUME 9.9 fL (7.4-11.4); MONOCYTES % (AUTO) 10.7 %; NEUTROPHILS % (AUTO) 2.9 %; PLT - PLATELET COUNT 162 10^3/uL (130-450); RED BLOOD COUNT 4.33 10^6/uL (4.70-6.10); RED CELL DISTRIBUTION WIDTH 14.2 % (12.0-15.0); WHITE BLOOD COUNT 5.8 x10^3/uL (4.8-10.8)
[2020-04-20 22:32] LABS: INR 1.1 (0.8-1.2); PT - PROTHROMBIN TIME 11.8 secs (9.9-12.6)
[2020-04-20 22:34] LABS: ABNORMAL LYMPHS % (MANUAL) 0 %; BAND NEUTROPHILS % (MANUAL) 0 %
[2020-04-20 22:47] LABS: ALBUMIN 3.1 g/dL (3.2-5.5); ALBUMIN/GLOBULIN RATIO 0.9 (1.0-2.2); BILIRUBIN,TOTAL 0.6 mg/dL (0.2-1.0); CALCIUM 8.6 mg/dL (8.5-10.3); CREATININE 0.7 mg/dL (0.6-1.2); MAGNESIUM 1.9 mg/dL (1.7-2.8); TOTAL PROTEIN 6.7 g/dL (6.7-8.2)
[2020-04-20] MEDS ORDERED: FOLIC ACID INJ 1 MG, THIAMINE INJ 100 MG, MAGNESIUM SULFATE 2 GM, MULTIVITAMIN 10 ML in... IV STA ×5 (22:48)
[2020-04-20 23:00] LABS: DIFFERENTIAL COMMENT MANUAL DIFFERENTIAL; EOSINOPHILS # (MANUAL) 0.1 10^3/uL (0-0.7); LYMPHOCYTES % (MANUAL) 83 %; MONOCYTES # (MANUAL) 0.5 10^3/uL (0.0-1.0); PLATELET ESTIMATE, MANUAL NORMAL (130-450,000) (NORMAL); RBC MORPHOLOGY (MULTIPLE) NORMAL APPEARANCE (NORMAL)
[2020-04-20] MEDS ORDERED: THIAMINE 100 MG/1 ML 2 ML MDV ONE (23:15)
[2020-04-20] MEDS ORDERED: MAGNESIUM SULFATE 1 GM/2 ML VIAL ONE (23:15)
[2020-04-20] MEDS ORDERED: FOLIC ACID 5 MG/1 ML 10ML MDV ONE (23:15)
[2020-04-20 23:38] LABS: MUDS CUTOFF CONCENTRATIONS CUTOFF CONC BELOW:
[2020-04-20 23:40] LABS: BILIRUBIN,URINE NEGATIVE (NEGATIVE); GLUCOSE, URINE (UA) NEGATIVE (NEGATIVE); KETONES,URINE (UA) NEGATIVE (NEGATIVE); LEUKOCYTE ESTERASE, URINE MODERATE (NEGATIVE); NITRITE,URINE NEGATIVE (NEGATIVE); OCCULT BLOOD,URINE NEGATIVE (NEGATIVE); PH,URINE 6.5 PH (5.0-7.5); PROTEIN,URINE NEGATIVE (NEGATIVE); UROBILINOGEN,URINE 1 (NORMAL) E.U./dL (NORMAL)
[2020-04-20 23:41] LABS: CLARITY,URINE HAZY (CLEAR)
[2020-04-20 23:50] LABS: AMPHETAMINE SCREEN,URINE NEGATIVE (NEGATIVE); BENZODIAZEPINES SCREEN, URINE NEGATIVE (NEGATIVE); COCAINE SCREEN URINE NEGATIVE (NEGATIVE); METHADONE SCREEN, URINE NEGATIVE (NEGATIVE); METHAMPHETAMINES SCREEN, URINE NEGATIVE (NEGATIVE); OPIATE SCREEN, URINE NEGATIVE (NEGATIVE); OXYCODONE SCREEN, URINE NEGATIVE (NEGATIVE); PROPOXYPHENE SCREEN, URINE NEGATIVE (NEGATIVE); TRICYCLIC ANTIDEPRESSANT,URINE NEGATIVE (NEGATIVE)
[2020-04-20 23:55] LABS: BACTERIA,URINE Moderate /HPF (None Seen); RBC,URINE 0-5 /HPF (0-5); SQUAMOUS EPITHELIAL CELL,UR FEW Squamous (<= Few)
[2020-04-21] MEDS ORDERED: cefTRIAXone 1 GM VIAL IVP STA (01:02)
[2020-04-21] MEDS ORDERED: SODIUM CHLORIDE FLUSH 0.9% 10 ML SYRINGE IVP PRN (01:04)
--- NOTE | 2020-04-21 01:10 | HISTORY & PHYSICAL EXAMINATION ---
"Chief Complaint - Chief Complaint Chief Complaint: Fall, Right facial droop History of Present Illness - Admitted From Admitted From:: [facility] ED - History Obtained From Records Reviewed: Yes History obtained from: Patient - History of Present Illness HPI Comment/Other: Patient is an 89-year-old male with medical history significant for hyp ertension, rheumatoid arthritis, COPD, hyperlipidemia, BPH, hypertension and alcoholism|who presented to the ED via EMS after a fall at home. He stood up at bedside to urinate and describes that his back suddenly gave out and he fell. He denied being dizzy before the episode. He denied passing out. He has a life alert which contacted EMS. It was estimated that he was on the ground for 40 minutes before they arrived. He denies headaches. Double or blurry vision. He reports drinking daily. He has a noticeable droop on the right side.. His left lower extremity is weak but he states that this is chronic. Aside from this he has no other neurologic deficits. He has slight bruising on his right temporal area and the knuckles of his left hand. CT/CTA of the head and neck was negative for any acute intracranial process. Further work-up in the ED included a urine analysis which showed a UTI. The patient is presented for admission for further work-up and treatment. History - Past Medical History Cardiovascular: reports: Hypertension, High cholesterol, Atrial fibrillation, Other Respiratory: reports: COPD Neuro: reports: None Endocrine/Autoimmune: reports: None GI: reports: None : reports: Benign prostate hypertrophy HEENT: reports: Glaucoma, Other Psych: reports: None Musculoskeletal: reports: Osteoarthritis, Rheumatoid arthritis Derm: reports: None MRSA Hx?: No - Past Surgical History General: reports: Appendectomy Ortho: reports: Hip replacement HEENT: reports: Cataracts, Detached retina repair, Tonsil/Adenoidectomy - Family & Social History Family History Comment/Other: Patient's mother had history of bladder cancer Living arrangement: At home Living Situation: Alone Social History Notes: According to records patient smokes half a pack per day. He smoked for greater than 50 years. He is also an alcoholic, drinks on a daily basis. Denies any alcohol withdrawal symptoms and denies any alcohol withdrawal seizures. Denies any illicit drugs. - POLST Patient has POLST: Yes Meds/Allgy - Home Medications Home Medications: Ambulatory Orders Medication Instructions Recorded Confirmed Aspirin [Children's Aspirin] 81 mg PO DAILY 09/15/13 06/07/19 Simvastatin [Zocor] 20 mg PO QPM 09/15/13 06/07/19 Timolol 0.5% Ophth Drops [Timoptic 1 drops EACHEYE BID 04/13/18 06/07/19 0.5% Ophth Drops] Multivitamin W/Minerals [Theragran 1 tab PO DAILYWM #30 tablet 04/17/18 06/07/19 M] Tamsulosin [Flomax] 0.4 mg PO DAILY #30 capsule 04/17/18 06/07/19 Metoprolol Succinate [Toprol Xl] 12.5 mg PO DAILY #15 tablet 06/06/19 06/07/19 Midodrine 2.5 mg PO TIDWM #90 tablet 06/06/19 06/07/19 Thiamine [Vitamin B-1] 100 mg PO DAILY #30 tablet 06/06/19 06/07/19 Midodrine 5 mg PO TIDWM #30 tablet 06/07/19 - Allergies Allergies/Adverse Reactions: Allergies Allergy/AdvReac Type Severity Reaction Status Date / Time gold sodium thiomalate Allergy Intermediate Rash Verified 04/20/20 22:04 Review of Systems - Constitutional Constitutional: denies: Fatigue, Fever, Chills - Eyes Eyes: denies: Pain, Vision loss, Dipolpia - Ears, Nose & Throat Ears, Nose & Throat: denies: Ear pain - Cardiovascular Cariovascular: denies: Irregular heart rate, Palpitations, Chest pain, Edema, Lightheadedness, Exertional dyspnea, Decr. exercise tolerance - Respiratory Respiratory: denies: Cough, Sputum production, Wheezing, SOB at rest, SOB with exertion - Gastrointestinal Gastrointestinal: denies: Abdominal pain, Abdominal distention, Constipation, Diarrhea, Nausea, Vomiting - Genitourinary Genitourinary: denies: Dysuria, Frequency, Urgency, Hematuria - Musculoskeletal Musculoskeletal: denies: Muscle pain, Back pain, Muscle aches - Integumentary Integumentary: denies: Rash, Pruritis - Neurological Neurological: denies: General weakness, Headache, Slurred speech - Psychiatric Psychiatric: denies: Depression, Anxiety - Endocrine Endocrine: denies: Polyuria, Polydypsia - Hematologic/Lymphatic Hematologic/Lymphatic: denies: Anemia, Bruising Prior Level of Functionality: The patient lives alone. He gets around his residence using a walker. He has someone who comes in once a week to help him shower. He also relies on Meals on Wheels for food. He also has a guardian. He mostly stays at home all day. His daughter lives in [place] Exam - Vital Signs Vital Signs: Vital Signs x48h Temp Pulse Resp BP Pulse Ox 04/20/20 23:30 82 16 174/89 H 98 04/20/20 23:04 84 14 152/90 H 97 04/20/20 22:06 62 14 180/88 H 62 L 04/20/20 22:01 36.1 C L 66 16 180/88 H 99 - Physical Exam General Appearance: positive: No acute distress, Other (Frail) Eyes Bilateral: positive: PERRL, EOMI ENT: positive: No signs of dehydration Neck: positive: No JVD, Trachea midline Respiratory: positive: Chest non-tender, No respiratory distress. negative: Wheezes, Rales, Rhonchi Cardiovascular: positive: Regular rate & rhythm, No murmur Abdomen: positive: Non-tender, No organomegaly, Nml bowel sounds, No distention. negative: Guarding, Rebound Back: positive: Nml inspection Skin: positive: Color nml, No rash, Warm, Dry, Other (Significant bruising all over body) Extremities: positive: Non-tender, Full ROM, Nml appearance, No pedal edema, Ot her (Ulnar deviation and hands due to rheumatoid arthritis) Neurologic/Psychiatric: positive: Oriented x3, Motor nml, Mood/affect nml, Facial droop (Right). negative: Slurred/abnml speech Conclusion/Plan - Problem List (1) Facial droop Conclusion/Plan: Right-sided. CT of brain without contrast was unremarkable. Differential includes TIA versus CVA. Neurochecks every shift. Permissive hypertension for 24 hours. MRI of brain without contrast ordered. 2D echo ordered. We will check lipid panel and hemoglobin A1c. Patient is on simvastatin. Will continue. Patient takes a baby aspirin daily. Will continue. (2) UTI (urinary tract infection) Conclusion/Plan: Blood and urine cultures pending. Patient started on Rocephin. Will continue. Tylenol PRN in the event of fever. (3) Hyperlipidemia Conclusion/Plan: On simvastatin 20 mg p.o. every afternoon. Will continue. (4) Alcohol abuse Conclusion/Plan: Patient was drinking today. Patient's blood alcohol level was 79. CIWA protocol ordered. Librium 25 mg p.o. every 8 hours ordered. (5) BPH (benign prostatic hyperplasia) Conclusion/Plan: On tamsulosin. Will continue. (6) COPD without exacerbation Conclusion/Plan: Not in exacerbation. We will order DuoNeb when needed. (7) HTN (hypertension) Conclusion/Plan: Patient is only on metoprolol succinate 12.5 mg p.o. daily We will hold for now and allow permissive hypertension - Lab Results Fish Bones: 04/21/20 05:22 04/21/20 05:22 Core Measures - Anticipated LOS I expect patient to be DC'd or transferred within 96 hours.: Yes - DVT/VTE - Prophylaxis VTE/DVT Device ordered at admit?: Yes VTE/DVT Prophylaxis med ordered at admit?: Yes"
[2020-04-21] MEDS ORDERED: LORazepam 2 MG/ML VIAL IVP PRN (01:22)
[2020-04-21] MEDS ORDERED: ACETAMINOPHEN 325 MG TABLET PO PRN (01:34)
[2020-04-21] MEDS ORDERED: ONDANSETRON 4 MG/2 ML VIAL IVP PRN (01:34)
[2020-04-21] MEDS ORDERED: SODIUM CHLORIDE 0.9% 1,000 ML IV SCH (02:00)
[2020-04-21 05:41] LABS: BASOPHILS % (AUTO) 0.3 %; EOSINOPHILS % (AUTO) 0.3 %; HGB - HEMOGLOBIN 15.2 g/dL (14.0-18.0); LYMPHOCYTES % (AUTO) 67.9 %; MEAN CORPUSCULAR HGB CONC 34.7 g/dL (32.0-36.0); MEAN PLATELET VOLUME 9.8 fL (7.4-11.4); MONOCYTES % (AUTO) 17.2 %; NEUTROPHILS % (AUTO) 14.3 %; PLT - PLATELET COUNT 159 10^3/uL (130-450); RED BLOOD COUNT 4.61 10^6/uL (4.70-6.10); RED CELL DISTRIBUTION WIDTH 14.2 % (12.0-15.0); WHITE BLOOD COUNT 3.9 x10^3/uL (4.8-10.8)
[2020-04-21 05:45] LABS: ABNORMAL LYMPHS % (MANUAL) 0 %
[2020-04-21 06:00] LABS: BUN - BLOOD UREA NITROGEN 13 mg/dL (6-20); CALCIUM 8.5 mg/dL (8.5-10.3); CARBON DIOXIDE - CO2 26 mmol/L (21-32); CHLORIDE 98 mmol/L (101-111); CHOL/HDL RATIO 3.1 (<5.0); CHOLESTEROL 151 mg/dL; CREATININE 0.6 mg/dL (0.6-1.2); GLUCOSE 114 mg/dL (70-100); HDL CHOLESTEROL 48 mg/dL; LDL CHOLESTEROL,CALCULATED 88 mg/dL; LDL/HDL RATIO 1.8 (<3.6); SODIUM 133 mmol/L (135-145); VLDL CHOLESTEROL 15 mg/dL
[2020-04-21] MEDS ORDERED: chlordiazePOXIDE 25 MG CAPSULE PO SCH (06:00)
[2020-04-21 06:09] LABS: BAND NEUTROPHILS % (MANUAL) 1 %; DIFFERENTIAL COMMENT MANUAL DIFFERENTIAL; LYMPHOCYTES # (MANUAL) 2.7 10^3/uL (1.5-3.5); LYMPHOCYTES % (MANUAL) 68 %; MONOCYTES # (MANUAL) 0.4 10^3/uL (0.0-1.0); PLATELET ESTIMATE, MANUAL NORMAL (130-450,000) (NORMAL); RBC MORPHOLOGY (MULTIPLE) NORMAL APPEARANCE (NORMAL)
[2020-04-21] MEDS: PANTOPRAZOLE 40 MG TABLET PO SCH (06:17)
[2020-04-21] MEDS ORDERED: hydrALAZINE INJ 20 MG/ML VIAL IVP PRN (08:51)
--- NOTE | 2020-04-21 09:02 | CT Report ---
PROCEDURE: ANGIO HEAD W/WO INDICATIONS: L sided facial droop CONTRAST: IV CONTRAST: Optiray 320 ml: 80 PO CONTRAST: *NO PO CONTRAST TECHNIQUE: Precontrast 4.5 mm thick angled axial sections acquired from the foramen magnum to the vertex. Afte r the administration of intravenous contrast, 1 mm thick sections acquired through the [place] of [place] is. Postcontrast 4.5 mm thick sections then re-acquired from the foramen magnum to the vertex. 3-di mensional hkzrhvm-stzbbiwpc-cmqmhojele (MIP) and/or volume rendering reformats were acquired of the c entral intracranial vasculature. For radiation dose reduction, the following was used: automated ex posure control, adjustment of mA and/or kV according to patient size. COMPARISON: CT head 12/13/2019. Brain MRI 06/03/2019 FINDINGS: Image quality: Excellent. Anterior circulation: Intracranial internal carotid arteries are normal in flow. Atelectatic calcifi cations in the cavernous and clinoid segments of the internal carotid arteries bilaterally which caus e mild narrowing of the vessels. The flow within the paired anterior cerebral arteries is normal and symmetric. The flow within the middle cerebral arteries is normal and symmetric. The anterior commu nicating artery is seen. No aneurysms are seen. Posterior circulation: Visualized portions of the vertebral arteries demonstrate normal caliber, and join to form a normal appearing basilar artery. Flow within the posterior cerebral arteries is norm al and symmetric. No aneurysms are seen. Dural sinuses demonstrate normal postcontrast enhancement. CSF spaces: Ventricles are normal in size and shape. Basal cisterns are patent. No extra-axial flu id collections. Brain: No midline shift. No intracranial bleeds or masses. Valdes-white matter interface appears int act. Skull and face: Calvarium and facial bones appear intact, without suspicious lesions. Sinuses: Visualized sinuses and mastoids are clear. IMPRESSION: 1. No acute intracranial disease process. 2. No large vessel occlusion, hemodynamically significant vascular stenosis, vascular dissection or a neurysm. Reviewed by: Fadia Hernandez MD, PhD on 04/21/2020 9:00 AM PDT Approved by: Fadia Hernandez MD, PhD on 04/21/2020 9:00 AM PDT Station ID: [id number]
--- NOTE | 2020-04-21 09:07 | CT Report ---
PROCEDURE: ANGIO NECK W INDICATIONS: L sided facial droop, L neck pain CONTRAST: IV CONTRAST: Optiray 320 ml: 80 PO CONTRAST: *NO PO CONTRAST TECHNIQUE: After the administration of intravenous contrast, 1.5 mm axial sections acquired from the aortic arch to the [place] of [place]. Coronal 3-D maximum intensity projection (MIP) and/or volume rendering ref ormats were then performed. For radiation dose reduction, the following was used: automated exposur e control, adjustment of mA and/or kV according to patient size. COMPARISON: Carotid Doppler ultrasound 06/04/2019. FINDINGS: Image quality: Excellent. Carotid system: The great vessels demonstrate a conventional anatomy as they arise from the aortic a rch. The origins of the common carotid arteries appear patent. The common carotid arteries demonstr ate normal calibers and courses. Calcified and soft atherosclerotic plaque noted in the origin/proxim al internal carotid arteries bilaterally which causes less than 50% stenosis of the right internal ca rotid artery and moderate, 50-59% stenosis of the left internal carotid artery. Posterior circulation: The origins of the vertebral arteries appear patent. Atherosclerotic plaque n oted in the origins of the vertebral arteries bilaterally which causes mild narrowing of the vessels. Patient is right vertebral artery dominant. The more superior portions of the vertebral arteries dem onstrate normal course and caliber. They join to form a normal appearing basilar artery. Soft tissues: Visualized neck soft tissues demonstrate no suspicious abnormalities. The thyroid gla nd is normal in size. Bones: No suspicious bony lesions. Visualized cervical spine appears normally aligned. IMPRESSION: 1. Mild, less than 50% stenosis of the origin of the right internal carotid artery. 2. Moderate, 50-60% stenosis of the origin of the left internal carotid artery. 3. Mild stenosis of the origins of the vertebral arteries bilaterally. 4. No large vessel occlusion or vascular dissection. The estimate of stenosis included in the report of the imaging study was calculated using the NASCET method Reviewed by: Fadia Hernandez MD, PhD on 04/21/2020 9:05 AM PDT Approved by: Fadia Hernandez MD, PhD on 04/21/2020 9:05 AM PDT Station ID: [id number]
--- NOTE | 2020-04-21 09:08 | XRAY Report ---
PROCEDURE: Chest 1 View X-Ray INDICATIONS: Chest pain TECHNIQUE: One view of the chest was acquired. COMPARISON: [facility] FINDINGS: Surgical changes and devices: None. Lungs and pleura: No pleural effusions or pneumothorax. Lungs are clear. Location of the right david diaphragm is stable compared to prior exam. Mediastinum: Mediastinal contours appear normal. Heart size is normal. Bones and chest wall: No suspicious bony lesions. Overlying soft tissues appear unremarkable. IMPRESSION: No acute cardiopulmonary disease process. Reviewed by: Fadia Hernandez MD, PhD on 04/21/2020 9:07 AM PDT Approved by: Fadia Hernandez MD, PhD on 04/21/2020 9:07 AM PDT Station ID: [id number]
[2020-04-21] MEDS: cefTRIAXone 1 GM in SODIUM CHLORIDE 0.9% MINIBAG 100 ML IV SCH (09:28)
[2020-04-21] MEDS: PRENATAL VITAMIN TABLET PO SCH (09:29)
[2020-04-21] MEDS: TAMSULOSIN 0.4 MG CAPSULE PO SCH (09:29)
[2020-04-21] MEDS: THIAMINE 100 MG TABLET PO SCH (09:29)
[2020-04-21] MEDS: TIMOLOL 0.5% OPHTH DROPS EACHEYE SCH ×2 (09:29→21:24)
[2020-04-21 09:30] LABS: GLUCOSE, URINE (UA) NEGATIVE (NEGATIVE); KETONES,URINE (UA) 15 mg/dL (NEGATIVE); LEUKOCYTE ESTERASE, URINE TRACE (NEGATIVE); NITRITE,URINE NEGATIVE (NEGATIVE); OCCULT BLOOD,URINE LARGE (NEGATIVE); PROTEIN,URINE >=300 mg/dL (NEGATIVE); UROBILINOGEN,URINE 1 (NORMAL) E.U./dL (NORMAL)
[2020-04-21] MEDS: chlordiazePOXIDE 25 MG CAPSULE PO SCH ×2 (09:35→21:24)
[2020-04-21] MEDS: SODIUM CHLORIDE FLUSH 0.9% 10 ML SYRINGE IVP SCH ×3 (09:36→23:58)
[2020-04-21 09:46] LABS: CLARITY,URINE CLOUDY (CLEAR)
[2020-04-21 09:50] LABS: BILIRUBIN,URINE NEGATIVE (NEGATIVE); ICTOTEST,URINE NEGATIVE
[2020-04-21 09:51] LABS: BACTERIA,URINE Few /HPF (None Seen); RBC,URINE TNTC /HPF (0-5); SQUAMOUS EPITHELIAL CELL,UR NONE SEEN (<= Few)
--- NOTE | 2020-04-21 11:00 | Ultrasound Report ---
PROCEDURE: Retroperitoneal INDICATIONS: HEMATURIA TECHNIQUE: Real-time scanning was performed of the kidneys and bladder, with image documentation. COMPARISON: CT abdomen pelvis 04/13/2018. FINDINGS: Kidneys: Right kidney measures 10 cm long; left kidney measures 11.1 cm long. Right renal cortical thickness is 1.1 cm; left renal cortical thickness is 1.0 cm. There are small bilateral cysts, measu ring up to 1.3 cm on the right and 1.5 cm and the left. There are a few small scattered nonshadowing echogenic foci in the kidneys which are nonspecific. No discrete shadowing renal stones identified. T here is mild left pelviectasis. No right hydronephrosis. Bladder: The patient voided prior to the study. Postvoid residual volume measured 718 mL. Bilateral u reteral jets visualized. Miscellaneous: No free abdominal fluid. IMPRESSION: 1. Large postvoid residual volume in the bladder. 2. Mild pelviectasis in the left kidney of indeterminate etiology. No right hydronephrosis. Reviewed by: Marco A Reyes MD on 04/21/2020 9:59 AM LORA Approved by: Marco A Reyes MD on 04/21/2020 9:59 AM AKDYLAN Station ID: [id number]
[2020-04-21 12:11] LABS: HEMOGLOBIN A1c% 5.1 % (4.27-6.07)
[2020-04-21 14:34] LABS: HGB - HEMOGLOBIN 13.6 g/dL (14.0-18.0)
--- NOTE | 2020-04-21 16:02 | PHARMACY PROGRESS NOTE ---
- Best Possible Medication History Admit Date and Time: 04/21/20 0104 Processed by: Pharmacy Medication History completed: Yes Patient Interview: Completed Secondary Source(s): Physician records, Pharmacy records, Insurance records (PATIENT INTERVIEWED BY CONTAINER PACKER OPERATOR. PATIENT ABLE TO CONFIRM HOME MEDICATIONS) As the person ultimately responsible for medication therapy, providers are able to order a medication from an existing home medication list in [facility] via the "Reconcile Routine" prior to Confirmation of that medication by senior support engineer. Such practice is discouraged except when the physician, in their clinical judgment, deems that a medical need exists for a medication without regard to previous use.
[2020-04-21] MEDS: ATORVASTATIN 40 MG TABLET PO SCH (21:24)
[2020-04-22] MEDS: PANTOPRAZOLE 40 MG TABLET PO SCH (06:08)
[2020-04-22 06:25] LABS: BASOPHILS % (AUTO) 0.4 %; EOSINOPHILS % (AUTO) 0.4 %; LYMPHOCYTES % (AUTO) 82.2 %; MEAN CORPUSCULAR HEMOGLOBIN 33.6 pg (27.0-31.0); MEAN CORPUSCULAR HGB CONC 34.9 g/dL (32.0-36.0); MEAN CORPUSCULAR VOLUME 96.4 fL (80.0-94.0); MEAN PLATELET VOLUME 9.8 fL (7.4-11.4); MONOCYTES % (AUTO) 13.1 %; NEUTROPHILS % (AUTO) 3.9 %; PLT - PLATELET COUNT 138 10^3/uL (130-450); RED BLOOD COUNT 3.87 10^6/uL (4.70-6.10); RED CELL DISTRIBUTION WIDTH 14.6 % (12.0-15.0); WHITE BLOOD COUNT 5.5 x10^3/uL (4.8-10.8)
[2020-04-22 06:31] LABS: ABNORMAL LYMPHS % (MANUAL) 0 %
[2020-04-22 06:34] LABS: CALCIUM 8.5 mg/dL (8.5-10.3); CREATININE 0.7 mg/dL (0.6-1.2)
[2020-04-22 07:06] LABS: BAND NEUTROPHILS % (MANUAL) 4 %; LYMPHOCYTES # (MANUAL) 4.4 10^3/uL (1.5-3.5); LYMPHOCYTES % (MANUAL) 4 %; MONOCYTES # (MANUAL) 0.8 10^3/uL (0.0-1.0)
--- NOTE | 2020-04-22 08:13 | MRI Report ---
PROCEDURE: Brain W/O INDICATIONS: right facial droop TECHNIQUE: Noncontrast axial T1 spin echo, axial T2 fast spin echo, sagittal and axial FLAIR, coronal T2 fast sp in echo, axial gradient echo, axial diffusion and ADC through the brain. COMPARISON: CTA head and neck 04/20/2020, MRI brain 06/03/2019 FINDINGS: Image quality: Motion is The ventricular system and cortical sulci demonstrate atrophy, consistent for patient's stated age. There are areas of hyperintense T2/FLAIR signal in the periventricular and subcortical white matter. There is no acute intra or extra-axial fluid collection. Old infarctions in the cerebellum are note d. No acute hemorrhage, mass lesion or midline shift. Brainstem is unremarkable. There is a small f ocus of hyperintense signal on diffusion in the inferior left inferior frontal lobe, immediately ivan cent to the anterior left frontal horn. This corresponds to hypointense ADC signal. Globes are symmet rical. Sinuses are aerated. Osseous structures are intact. IMPRESSION: 1. Restricted diffusion in the left inferior frontal lobe adjacent to the frontal horn as above. This appears most consistent with acute/subacute ischemia. No associated hemorrhage. 2. Moderate atrophy and chronic microvascular ischemic changes. Reviewed by: Mel Brannon MD on 04/22/2020 8:12 AM PDT Approved by: Mel Brannon MD on 04/22/2020 8:12 AM PDT Station ID: [id number]
[2020-04-22] MEDS: cefTRIAXone 1 GM in SODIUM CHLORIDE 0.9% MINIBAG 100 ML IV SCH (09:55)
[2020-04-22] MEDS: TIMOLOL 0.5% OPHTH DROPS EACHEYE SCH ×2 (09:56→20:17)
[2020-04-22] MEDS: PHENAZOPYRIDINE 100 MG TABLET PO PRN (09:57)
[2020-04-22] MEDS: SODIUM CHLORIDE FLUSH 0.9% 10 ML SYRINGE IVP SCH ×2 (09:58→16:47)
[2020-04-22] MEDS: TAMSULOSIN 0.4 MG CAPSULE PO SCH (10:02)
[2020-04-22] MEDS: PRENATAL VITAMIN TABLET PO SCH (10:02)
[2020-04-22] MEDS: THIAMINE 100 MG TABLET PO SCH (10:02)
[2020-04-22] MEDS: chlordiazePOXIDE 25 MG CAPSULE PO SCH (10:02)
[2020-04-22 10:16] LABS: BILIRUBIN,URINE SMALL (NEGATIVE); GLUCOSE, URINE (UA) NEGATIVE (NEGATIVE); KETONES,URINE (UA) NEGATIVE (NEGATIVE); LEUKOCYTE ESTERASE, URINE SMALL (NEGATIVE); NITRITE,URINE NEGATIVE (NEGATIVE); OCCULT BLOOD,URINE LARGE (NEGATIVE); PROTEIN,URINE 100 mg/dL (NEGATIVE); UROBILINOGEN,URINE 1 (NORMAL) E.U./dL (NORMAL)
[2020-04-22 10:30] LABS: CLARITY,URINE HAZY (CLEAR)
[2020-04-22 10:31] LABS: BACTERIA,URINE Few /HPF (None Seen); SQUAMOUS EPITHELIAL CELL,UR FEW Squamous (<= Few)
[2020-04-22] MEDS: ASPIRIN CHEW 81 MG TABLET PO SCH (13:11)
--- NOTE | 2020-04-22 15:22 | PROVIDER PROGRESS NOTE ---
Assessment/Plan - Problem List (1) Cerebrovascular accident (CVA) Qualifiers: CVA mechanism: unspecified Qualified Code(s): I63.9 - Cerebral infarction, unspecified Assessment/Plan: 04-22 MRI of brain show patient has acute subacute ischemia in the left inferior frontal lobe. Clinically patient has improved. Patient has no obvious weakness or Deficit for speech, swallow, bilateral weakness or sensation. Continue Lipitor, Resume home aspirin, because pt has hematuria in yesterday, aspirin was hold. Continue physical and Occupational Therapy, Consult with social work for discharge planning (2) UTI (urinary tract infection) Patient was treated with antibiotics, add probiotics, will follow-up urine culture and sensitivity study (3)hematuria Patient was reported to have reported 50 cc hematuria on yesterday.Ultrasound show no bladder tumor or lesion or hydronephrosis But with a large volume of urine in the bladder. order Flomax, Robert catheter for pt. Will remove Robert catheter when pt's hematurine is stable. (4) Hyperlipidemia Conclusion/Plan: Add Lipitor 40 mg daily (5) Alcohol abuse Conclusion/Plan: Patient has no obviously alcohol withdrawal as far continue CIWA protocol. Librium 25 mg p.o. daily (6) BPH (benign prostatic hyperplasia) Conclusion/Plan: On tamsulosin. (7) COPD without exacerbation Not in exacerbation. We will order DuoNeb when needed. (8) HTN (hypertension) stable, will resume home meds after stroke 24-48 hours - Current Meds Current Meds: Current Medications Generic Name Dose Route Start Last Admin Trade Name Freq PRN Reason Stop Dose Admin Aspirin 81 mg 04/22/20 11:00 04/22/20 13:11 [facility] Aspirin PO 81 mg DAILY WILLIE Administration Atorvastatin Calcium 40 mg 04/21/20 21:00 04/21/20 21:24 Lipitor PO 40 mg QPM WILLIE Administration Chlordiazepoxide HCl 25 mg 04/22/20 09:00 04/22/20 10:02 Librium PO 25 mg DAILY WILLIE Administration Ceftriaxone Sodium 1 gm/ 100 mls @ 200 mls/hr 04/21/20 09:00 04/22/20 10:57 Sodium Chloride IV Infused DAILY WILLIE Infusion Pantoprazole Sodium 40 mg 04/21/20 07:00 04/22/20 06:08 Protonix PO 40 mg QDAC WILLIE Administration Phenazopyridine HCl 100 mg 04/21/20 09:24 04/22/20 09:57 Pyridium PO 100 mg TID PRN Administration urine discomfort Multivit/Folic Acid/Iron 1 tab 04/21/20 09:00 04/22/20 10:02 Trinatal Rx 1 PO 1 tab DAILY WILLIE Administration Sodium Chloride 10 ml 04/21/20 09:00 04/22/20 09:58 Normal Saline Flush 0.9% IVP 10 ml 0100,0900,1700 WILLIE Administration Tamsulosin HCl 0.4 mg 04/21/20 09:00 04/22/20 10:02 Flomax PO 0.4 mg DAILY WILLIE Administration Thiamine HCl 100 mg 04/21/20 09:00 04/22/20 10:02 Vitamin B-1 PO 100 mg DAILY WLILIE Administration Timolol Maleate 1 drops 04/21/20 09:00 04/22/20 09:56 Timoptic 0.5% Ophth Drops EACHEYE 1 drops BID WILLIE Administration - Lab Result Fish Bone Diagrams: 04/22/20 06:10 04/22/20 06:10 - Additional Planning My Orders: My Active Orders 04/21/20 21:00 Atorvastatin [Lipitor] 40 mg PO QPM 04/22/20 07:47 Neutropenic Management [RC] QSHIFT 04/22/20 09:00 chlordiazePOXIDE [Librium] 25 mg PO DAILY 04/22/20 10:07 CUL, URINE [RM] Urgent 04/22/20 11:00 Aspirin Chewable [[place] Aspirin] 81 mg PO DAILY 04/22/20 Lunch Neutropenic (Low Microbial) Diet [DIET] 04/22/20 16:00 NS 0.9% @ 83.333 mls/hr Sodium Chloride 0.9% [Normal Saline 0.9%] 1,000 ml IV 83.333 mls/hr Subjective - Subjective Patient Reports: Feeling Better Objective Vital Signs: Vital Signs - 24 hr 04/21/20 04/21/20 04/22/20 16:22 21:00 00:19 Temperature 35.7 C L 36.7 C 36.5 C Heart Rate Heart Rate [ 83 73 70 Brachial] Heart Rate [ Sitting] Respiratory 20 13 18 Rate Blood Pressure 121/63 113/60 107/49 L [Right Brachial artery] Blood Pressure [Sitting] O2 Saturation 97 97 95 04/22/20 04/22/20 04/22/20 04:49 09:00 10:40 Temperature 36.5 C 36.4 C L Heart Rate Heart Rate [ 66 72 Brachial] Heart Rate [ 66 Sitting] Respiratory 16 20 Rate Blood Pressure 124/56 L 145/61 H [Right Brachial artery] Blood Pressure 148/76 H [Sitting] O2 Saturation 98 100 04/22/20 04/22/20 12:57 14:18 Temperature 36.4 C L 36.4 C L Heart Rate 78 Heart Rate [ 63 Brachial] Heart Rate [ Sitting] Respiratory 20 20 Rate Blood Pressure 154/71 H [Right Brachial artery] Blood Pressure [Sitting] O2 Saturation 99 96 Oxygen O2 Source [With Activity] Nasal cannula O2 Source [Without Activity] Nasal cannula O2 Source Room air I&O (Last 24 Hrs): Intake and Output Totals x24h 04/20/20 04/21/20 04/22/20 23:59 23:59 23:59 Intake Total 1935.2 1660 Output Total 1750 650 Balance 185.2 1010 General: Alert, Oriented x3, No acute distress HEENT: Atraumatic Neck: Supple Lymphatic: no adenopathy Neuro: Alert, Non Focal, Oriented Times 3, Other (pt has no obvious focal neuro deficits) Cardiovascular: Regular rate, Normal S1, Normal S2 Respiratory: Chest non-tender, No respiratory distress Abdomen: Normal bowel sounds, Soft, No tenderness Extremities: Normal pulses - Results Results: Laboratory Results WBC 5.5 x10^3/uL (4.8-10.8) 04/22/20 06:10 RBC 3.87 10^6/uL (4.70-6.10) L 04/22/20 06:10 Hgb 13.0 g/dL (14.0-18.0) L 04/22/20 06:10 Hct 37.3 % (42.0-52.0) L 04/22/20 06:10 MCV 96.4 fL (80.0-94.0) H 04/22/20 06:10 MCH 33.6 pg (27.0-31.0) H 04/22/20 06:10 MCHC 34.9 g/dL (32.0-36.0) 04/22/20 06:10 RDW 14.6 % (12.0-15.0) 04/22/20 06:10 Plt Count 138 10^3/uL (130-450) 04/22/20 06:10 MPV 9.8 fL (7.4-11.4) 04/22/20 06:10 Neut # (Auto) Not Reportable 04/22/20 06:10 Lymph # (Auto) Not Reportable 04/22/20 06:10 King # (Auto) Not Reportable 04/22/20 06:10 Eos # (Auto) Not Reportable 04/22/20 06:10 Baso # (Auto) Not Reportable 04/22/20 06:10 Absolute Nucleated RBC Not Reportable 04/22/20 06:10 Total Counted 100 04/22/20 06:10 Band Neuts % (Manual) 4 % (0-10) 04/22/20 06:10 Reactive Lymphs % (Man) 76 % 04/22/20 06:10 Abnorm Lymph % (Manual) 0 % 04/22/20 06:10 Nucleated RBC % Not Reportable 04/22/20 06:10 Neutrophils # (Manual) 0.3 10^3/uL (1.5-6.6) L* 04/22/20 06:10 Lymphocytes # (Manual) 4.4 10^3/uL (1.5-3.5) H 04/22/20 06:10 Monocytes # (Manual) 0.8 10^3/uL (0.0-1.0) 04/22/20 06:10 Eosinophils # (Manual) 0.0 10^3/uL (0-0.7) 04/22/20 06:10 Basophils # (Manual) 0.0 10^3/uL (0-0.1) 04/22/20 06:10 Differential Comment MANUAL DIFFERENTIAL 04/21/20 05:22 Platelet Estimate NORMAL (130-450,000) (NORMAL) 04/21/20 05:22 RBC Morph Micro Appear NORMAL APPEARANCE (NORMAL) 04/21/20 05:22 PT 11.8 secs (9.9-12.6) 04/20/20 22:15 INR 1.1 (0.8-1.2) 04/20/20 22:15 APTT 27.0 secs (24.9-33.3) 04/20/20 22:15 Sodium 132 mmol/L (135-145) L 04/22/20 06:10 Potassium 3.6 mmol/L (3.5-5.0) 04/22/20 06:10 Chloride 95 mmol/L (101-111) L 04/22/20 06:10 Carbon Dioxide 26 mmol/L (21-32) 04/22/20 06:10 Anion Gap 11.0 (6-13) 04/22/20 06:10 BUN 23 mg/dL (6-20) H 04/22/20 06:10 Creatinine 0.7 mg/dL (0.6-1.2) 04/22/20 06:10 Estimated GFR (MDRD) 106 (>89) 04/22/20 06:10 Glucose 95 mg/dL (70-100) 04/22/20 06:10 Estimat Average Glucose 100 mg/dL (70-100) 04/21/20 05:22 Hemoglobin A1c % 5.1 % (4.27-6.07) 04/21/20 05:22 Lactic Acid 1.2 mmol/L (0.5-2.2) 04/21/20 08:50 Calcium 8.5 mg/dL (8.5-10.3) 04/22/20 06:10 Magnesium 1.9 mg/dL (1.7-2.8) 04/20/20 22:15 Total Bilirubin 0.6 mg/dL (0.2-1.0) 04/20/20 22:15 AST 24 IU/L (10-42) 04/20/20 22:15 ALT 15 IU/L (10-60) 04/20/20 22:15 Alkaline Phosphatase 65 IU/L (42-121) 04/20/20 22:15 Total Creatine Kinase 59 IU/L (22-269) 04/20/20 22:15 Troponin I High Sens 7.6 ng/L (2.3-19.7) 04/20/20 22:15 B-Natriuretic Peptide 116 pg/mL (5-100) H 04/20/20 22:15 Total Protein 6.7 g/dL (6.7-8.2) 04/20/20 22:15 Albumin 3.1 g/dL (3.2-5.5) L 04/20/20 22:15 Globulin 3.6 g/dL (2.1-4.2) 04/20/20 22:15 Albumin/Globulin Ratio 0.9 (1.0-2.2) L 04/20/20 22:15 Triglycerides 73 mg/dL (-149) 04/21/20 05:22 Cholesterol 151 mg/dL (-199) 04/21/20 05:22 LDL Cholesterol, Calc 88 mg/dL (-129) 04/21/20 05:22 VLDL Cholesterol 15 mg/dL 04/21/20 05:22 HDL Cholesterol 48 mg/dL (60-) L 04/21/20 05:22 LDL/HDL Ratio 1.8 (<3.6) 04/21/20 05:22 Cholesterol/HDL Ratio 3.1 (<5.0) 04/21/20 05:22 Lipase 53 U/L (22-51) H 04/20/20 22:15 Urine Color DARK YELLOW 04/22/20 10:07 Urine Clarity HAZY (CLEAR) 04/22/20 10:07 Urine pH 6.0 PH (5.0-7.5) 04/22/20 10:07 Ur Specific [place] 1.025 (1.002-1.030) 04/22/20 10:07 Urine Protein 100 mg/dL (NEGATIVE) H 04/22/20 10:07 Urine Glucose (UA) NEGATIVE mg/dL (NEGATIVE) 04/22/20 10:07 Urine Ketones NEGATIVE mg/dL (NEGATIVE) 04/22/20 10:07 Urine Occult Blood LARGE (NEGATIVE) H 04/22/20 10:07 Urine Nitrite NEGATIVE (NEGATIVE) 04/22/20 10:07 Urine Bilirubin SMALL (NEGATIVE) H 04/22/20 10:07 Urine Urobilinogen 1 (NORMAL) E.U./dL (NORMAL) 04/22/20 10:07 Ur Leukocyte Esterase SMALL (NEGATIVE) H 04/22/20 10:07 Urine RBC 6-10 /HPF (0-5) H 04/22/20 10:07 Urine WBC 11-25 /HPF (0-3) H 04/22/20 10:07 Ur Squamous Epith Cells FEW Squamous (<= Few) 04/22/20 10:07 Urine Bacteria Few /HPF (None Seen) 04/22/20 10:07 Ur Microscopic Review INDICATED 04/20/20 23:30 Urine Culture Comments INDICATED 04/22/20 10:07 Urine Opiates Screen NEGATIVE (NEGATIVE) 04/20/20 23:30 Ur Oxycodone Screen NEGATIVE (NEGATIVE) 04/20/20 23:30 Urine Methadone Screen NEGATIVE (NEGATIVE) 04/20/20 23:30 Ur Propoxyphene Screen NEGATIVE (NEGATIVE) 04/20/20 23:30 Ur Barbiturates Screen NEGATIVE (NEGATIVE) 04/20/20 23:30 Ur Tricyclics Screen NEGATIVE (NEGATIVE) 04/20/20 23:30 Ur Phencyclidine Scrn NEGATIVE (NEGATIVE) 04/20/20 23:30 Ur Amphetamine Screen NEGATIVE (NEGATIVE) 04/20/20 23:30 U Methamphetamines Scrn NEGATIVE (NEGATIVE) 04/20/20 23:30 U Benzodiazepines Scrn NEGATIVE (NEGATIVE) 04/20/20 23:30 Urine Cocaine Screen NEGATIVE (NEGATIVE) 04/20/20 23:30 U Cannabinoids Screen NEGATIVE (NEGATIVE) 04/20/20 23:30 Ethyl Alcohol 73.6 mg/dL 04/20/20 22:15 - Procedures Procedures: Procedures CATARAC PHACOEMULS/ASPIR (02/10/15) INSERT LENS AT CATAR EXT (02/10/15) PARTIAL HIP REPLACEMENT (09/15/13) ABX Reporting Has patient been on IV antibiotics over the past 48 hours?: Yes Current Medications - Current Medications Current Medications: Active Medications Acetaminophen (Tylenol) 650 mg PO Q4HR PRN PRN Reason: Pain or Fever > 38C (100.4F) Aspirin ([place] Aspirin) 81 mg PO DAILY [facility] Last Admin: 04/22/20 13:11 Dose: 81 mg Documented by: Atorvastatin Calcium (Lipitor) 40 mg PO QPM [facility] Last Admin: 04/21/20 21:24 Dose: 40 mg Documented by: Chlordiazepoxide HCl (Librium) 25 mg PO DAILY [facility] Last Admin: 04/22/20 10:02 Dose: 25 mg Documented by: Ceftriaxone Sodium 1 gm/ (Sodium Chloride) 100 mls @ 200 mls/hr IV DAILY [facility] Last Infusion: 04/22/20 10:57 Dose: Infused Documented by: Sodium Chloride (Normal Saline 0.9%) 1,000 mls @ 83.333 mls/hr IV .Q12H [facility] Stop: 04/23/20 15:59 Lorazepam (Ativan Inj (Vial)) 1 mg IVP Q30M PRN; Protocol PRN Reason: CIWA >8 Metoprolol Succinate (Toprol Xl) 50 mg PO DAILY [facility] Ondansetron HCl (Zofran Inj) 4 mg IVP Q6HR PRN PRN Reason: Nausea / Vomiting Pantoprazole Sodium (Protonix) 40 mg PO QDAC [facility] Last Admin: 04/22/20 06:08 Dose: 40 mg Documented by: Phenazopyridine HCl (Pyridium) 100 mg PO TID PRN PRN Reason: urine discomfort Last Admin: 04/22/20 09:57 Dose: 100 mg Documented by: Multivit/Folic Acid/Iron (Trinatal Rx 1) 1 tab PO DAILY [facility] Last Admin: 04/22/20 10:02 Dose: 1 tab Documented by: Saccharomyces Boulardii (Florastor) 250 mg PO BIDWM [facility] Sodium Chloride (Normal Saline Flush 0.9%) 10 ml IVP PRN PRN PRN Reason: NEEDED PER PROVIDER ORDERS Sodium Chloride (Normal Saline Flush 0.9%) 10 ml IVP 0100,0900,1700 [facility] Last Admin: 04/22/20 09:58 Dose: 10 ml Documented by: Tamsulosin HCl (Flomax) 0.4 mg PO DAILY [facility] Last Admin: 04/22/20 10:02 Dose: 0.4 mg Documented by: Thiamine HCl (Vitamin B-1) 100 mg PO DAILY [facility] Last Admin: 04/22/20 10:02 Dose: 100 mg Documented by: Timolol Maleate (Timoptic 0.5% Ophth Drops) 1 drops EACHEYE BID [facility] Last Admin: 04/22/20 09:56 Dose: 1 drops Documented by: Timolol Maleate (Timoptic 0.5% Ophth Drops) 1 drops EACHEYE BID [facility] Aspirin [Children's Aspirin] 81 mg PO DAILY 09/15/13 Timolol 0.5% Ophth Drops [Timoptic 0.5% Ophth Drops] 1 drops EACHEYE BID 04/13/18 Metoprolol Succinate [Toprol Xl] 50 mg PO DAILY 04/21/20
[2020-04-22] MEDS ORDERED: SODIUM CHLORIDE 0.9% 1,000 ML IV SCH (16:00)
[2020-04-22] MEDS: SACCHAROMYCES BOULARDII 250 MG CAPSULE PO SCH ×2 (17:14→17:19)
[2020-04-22] MEDS: ATORVASTATIN 40 MG TABLET PO SCH (20:16)
[2020-04-22] MEDS ORDERED: TIMOLOL 0.5% OPHTH DROPS EACHEYE SCH (21:00)
[2020-04-23] MEDS: SODIUM CHLORIDE FLUSH 0.9% 10 ML SYRINGE IVP SCH ×3 (01:25→16:59)
[2020-04-23 05:46] LABS: BASOPHILS % (AUTO) 0.1 %; EOSINOPHILS % (AUTO) 0.5 %; HGB - HEMOGLOBIN 11.5 g/dL (14.0-18.0); LYMPHOCYTES % (AUTO) 83.1 %; MEAN CORPUSCULAR HEMOGLOBIN 32.3 pg (27.0-31.0); MEAN CORPUSCULAR VOLUME 94.9 fL (80.0-94.0); MEAN PLATELET VOLUME 9.9 fL (7.4-11.4); MONOCYTES % (AUTO) 12.8 %; NEUTROPHILS % (AUTO) 3.5 %; PLT - PLATELET COUNT 134 10^3/uL (130-450); RED BLOOD COUNT 3.56 10^6/uL (4.70-6.10); RED CELL DISTRIBUTION WIDTH 14.3 % (12.0-15.0); WHITE BLOOD COUNT 7.3 x10^3/uL (4.8-10.8)
[2020-04-23 05:59] LABS: BAND NEUTROPHILS % (MANUAL) 0 %
[2020-04-23 06:10] LABS: CALCIUM 8.2 mg/dL (8.5-10.3); CREATININE 0.6 mg/dL (0.6-1.2)
[2020-04-23 06:18] LABS: ABNORMAL LYMPHS % (MANUAL) 4 %; DIFFERENTIAL COMMENT MANUAL DIFFERENTIAL; EOSINOPHILS # (MANUAL) 0.1 10^3/uL (0-0.7); LYMPHOCYTES # (MANUAL) 6.4 10^3/uL (1.5-3.5); LYMPHOCYTES % (MANUAL) 83 %; MONOCYTES # (MANUAL) 0.7 10^3/uL (0.0-1.0); PLATELET ESTIMATE, MANUAL NORMAL (130-450,000) (NORMAL); PLATELET MORPHOLOGY NORMAL APPEARANCE (NORMAL); RBC MORPHOLOGY (MULTIPLE) NORMAL APPEARANCE (NORMAL)
[2020-04-23] MEDS: PANTOPRAZOLE 40 MG TABLET PO SCH (06:23)
[2020-04-23] MEDS ORDERED: POTASSIUM CHLORIDE 20 MEQ TABLET PO ONE (08:00)
[2020-04-23] MEDS: cefTRIAXone 1 GM in SODIUM CHLORIDE 0.9% MINIBAG 100 ML IV SCH (08:15)
[2020-04-23] MEDS: THIAMINE 100 MG TABLET PO SCH (08:16)
[2020-04-23] MEDS: TAMSULOSIN 0.4 MG CAPSULE PO SCH (08:17)
[2020-04-23] MEDS: polyethylene glycoL 3350 17 GM PACKET PO SCH (08:17)
[2020-04-23] MEDS: PRENATAL VITAMIN TABLET PO SCH (08:17)
[2020-04-23] MEDS: ASPIRIN CHEW 81 MG TABLET PO SCH (08:17)
[2020-04-23] MEDS: chlordiazePOXIDE 25 MG CAPSULE PO SCH (08:17)
[2020-04-23] MEDS: SACCHAROMYCES BOULARDII 250 MG CAPSULE PO SCH ×2 (08:17→16:58)
[2020-04-23] MEDS: METOPROLOL SUCCINATE 50 MG TABLET PO SCH (08:17)
[2020-04-23] MEDS: TIMOLOL 0.5% OPHTH DROPS EACHEYE SCH ×2 (08:22→20:49)
--- NOTE | 2020-04-23 13:11 | PROVIDER PROGRESS NOTE ---
Subjective - Prog Note Date Prog Note Date: 04/23/20 - Subjective Subjective: He reports feeling okay overall. He still has left lower extremity weakness but he states is chronic for him. He understands that he has had a stroke and needs rehab. He is agreeable to this. He reports he normally does not have a catheter in place but he was having difficulty urinating prior to ho spitalization. Current Medications - Current Medications Current Medications: Active Medications Acetaminophen (Tylenol) 650 mg PO Q4HR PRN PRN Reason: Pain or Fever > 38C (100.4F) Atorvastatin Calcium (Lipitor) 40 mg PO QPM [facility] Last Admin: 04/22/20 20:16 Dose: 40 mg Documented by: Chlordiazepoxide HCl (Librium) 25 mg PO DAILY [facility] Last Admin: 04/23/20 08:17 Dose: 25 mg Documented by: Clopidogrel Bisulfate (Plavix) 75 mg PO DAILY [facility] Lorazepam (Ativan Inj (Vial)) 1 mg IVP Q30M PRN; Protocol PRN Reason: CIWA >8 Metoprolol Succinate (Toprol Xl) 50 mg PO DAILY [facility] Last Admin: 04/23/20 08:17 Dose: 50 mg Documented by: Ondansetron HCl (Zofran Inj) 4 mg IVP Q6HR PRN PRN Reason: Nausea / Vomiting Pantoprazole Sodium (Protonix) 40 mg PO QDAC [facility] Last Admin: 04/23/20 06:23 Dose: 40 mg Documented by: Phenazopyridine HCl (Pyridium) 100 mg PO TID PRN PRN Reason: urine discomfort Last Admin: 04/22/20 09:57 Dose: 100 mg Documented by: Polyethylene Glycol (Miralax) 17 gm PO DAILY [facility] Last Admin: 04/23/20 08:17 Dose: 17 gm Documented by: Multivit/Folic Acid/Iron (Trinatal Rx 1) 1 tab PO DAILY [facility] Last Admin: 04/23/20 08:17 Dose: 1 tab Documented by: Saccharomyces Boulardii (Florastor) 250 mg PO BIDWM [facility] Last Admin: 04/23/20 08:17 Dose: 250 mg Documented by: Sodium Chloride (Normal Saline Flush 0.9%) 10 ml IVP PRN PRN PRN Reason: NEEDED PER PROVIDER ORDERS Sodium Chloride (Normal Saline Flush 0.9%) 10 ml IVP 0100,0900,1700 [facility] Last Admin: 04/23/20 08:15 Dose: 10 ml Documented by: Tamsulosin HCl (Flomax) 0.4 mg PO DAILY [facility] Last Admin: 04/23/20 08:17 Dose: 0.4 mg Documented by: Thiamine HCl (Vitamin B-1) 100 mg PO DAILY [facility] Last Admin: 04/23/20 08:16 Dose: 100 mg Documented by: Timolol Maleate (Timoptic 0.5% Ophth Drops) 1 drops EACHEYE BID [facility] Last Admin: 04/23/20 08:22 Dose: 1 drops Documented by: Aspirin [Children's Aspirin] 81 mg PO DAILY 09/15/13 Timolol 0.5% Ophth Drops [Timoptic 0.5% Ophth Drops] 1 drops EACHEYE BID 04/13/18 Metoprolol Succinate [Toprol Xl] 50 mg PO DAILY 04/21/20 Objective - Vital Signs/Intake & Output Reviewed Vital Signs: Yes Vital Signs: Vital Signs x48h Temp Pulse Resp BP BP Pulse Ox 04/23/20 11:38 36.6 C 84 20 107/55 L 95 04/23/20 08:12 36.5 C 70 22 131/61 H 94 04/23/20 06:22 95 04/23/20 05:42 99 Intake & Output: Intake & Output 04/20/20 04/21/20 04/22/20 04/23/20 23:59 23:59 23:59 23:59 Intake Total 1935.2 2200 1320 Output Total 1750 1700 350 Balance 185.2 500 970 - Objective General Appearance: positive: No acute distress, Alert Eyes Bilateral: positive: Normal inspection, Conjunctivae nml ENT: positive: ENT inspection nml Neck: positive: Nml inspection Respiratory: positive: No respiratory distress. negative: Wheezes, Rales Cardiovascular: positive: Regular rate & rhythm, No murmur. negative: Tachycardia, Systolic murmur Abdomen: positive: Non-tender, No distention. negative: Tenderness Skin: positive: Warm, Dry Extremities: positive: No pedal edema Neurologic/Psychiatric: positive: Other (Strength in left lower extremity is approximately 2-3 out of 5. His strength is otherwise about a 5 out of 5 in his other extremities. No obvious facial droop on exam. Sensations grossly intact.). negative: Disoriented to person, Disoriented to place - Lab Results Fish Bones: 04/23/20 05:25 04/23/20 05:25 Other Labs: Lab Results x24hrs 04/23/20 04/23/20 Range/Units 05:25 05:25 WBC 7.3 (4.8-10.8) x10^3/uL RBC 3.56 L (4.70-6.10) 10^6/uL Hgb 11.5 L (14.0-18.0) g/dL Hct 33.8 L (42.0-52.0) % MCV 94.9 H (80.0-94.0) fL MCH 32.3 H (27.0-31.0) pg MCHC 34.0 (32.0-36.0) g/dL RDW 14.3 (12.0-15.0) % Plt Count 134 (130-450) 10^3/uL MPV 9.9 (7.4-11.4) fL Neut # (Auto) Not Reportable Lymph # (Auto) Not Reportable [place] # (Auto) Not Reportable Eos # (Auto) Not Reportable Baso # (Auto) Not Reportable Absolute Nucleated RBC Not Reportable Total Counted 100 Band Neuts % (Manual) 0 (0 - 10) % Abnorm Lymph % (Manual) 4 % Nucleated RBC % Not Reportable Neutrophils # (Manual) 0.2 L* (1.5-6.6) 10^3/uL Lymphocytes # (Manual) 6.4 H (1.5-3.5) 10^3/uL Monocytes # (Manual) 0.7 (0.0-1.0) 10^3/uL Eosinophils # (Manual) 0.1 (0-0.7) 10^3/uL Basophils # (Manual) 0.0 (0-0.1) 10^3/uL Differential Comment MANUAL DIFFERENTIAL WBC Morphology NORMAL APPEARANCE (NORMAL) Platelet Estimate NORMAL (130-450,000) (NORMAL) Platelet Morphology NORMAL APPEARANCE (NORMAL) RBC Morph Micro Appear NORMAL APPEARANCE (NORMAL) Sodium 130 L (135-145) mmol/L Potassium 3.4 L (3.5-5.0) mmol/L Chloride 97 L (101-111) mmol/L Carbon Dioxide 27 (21-32) mmol/L Anion Gap 6.0 (6-13) BUN 15 (6-20) mg/dL Creatinine 0.6 (0.6-1.2) mg/dL Estimated GFR (MDRD) 127 (>89) Glucose 96 (70-100) mg/dL Calcium 8.2 L (8.5-10.3) mg/dL ABX Reporting Has patient been on IV antibiotics over the past 48 hours?: Yes Assessment/Plan - Problem List (1) Cerebrovascular accident (CVA) Impression: MRI confirmed an area in the left inferior frontal lobe consistent with a acute/subacute ischemia. This would not explain his left lower extremity weakness and the patient does state that this is chronic for him. MRI did reveal old cerebellar infarcts. His echocardiogram is unremarkable and he is not a diabetic. His lipid panel is also unremarkable. Given he had been on aspirin at home, we will switch him to Plavix 75 mg daily. Continue Lipitor. PT is recommending skilled nurse facility and he is pending a negative COVID before he can be discharged. Qualifiers: CVA mechanism: unspecified Qualified Code(s): I63.9 - Cerebral infarction, unspecified (2) UTI (urinary tract infection) Impression: There was concern on admission for urinary tract infection. He has had multiple urine cultures in the initial one was polymicrobial and the second one was less than 10,000 coloniesl and now his final one showed no growth. We will discontinue the ceftriaxone. Qualifiers: Urinary tract infection type: site unspecified Hematuria presence: without hematuria Qualified Code(s): N39.0 - Urinary tract infection, site not specified (3) Alcohol abuse Impression: He has not shown evidence of withdrawal. We will continue the multivitamin and thiamine. We will monitor closely for evidence of withdrawal. (4) BPH (benign prostatic hyperplasia) Impression: Robert catheter was placed on admission and due to his BPH, he had hematuria likely from trauma. We will discontinue the Robert catheter today and continue Flomax. (5) HTN (hypertension) Impression: His blood pressure stable with systolic in the 130s. We will continue his current dose of metoprolol. (6) Neutropenia Impression: This is chronic for him. There is no evidence of infection at this time. His white count is normal except for the neutropenia and he does have lymphocytosis as well. Suspect this may be secondary to rheumatoid arthritis as well as his alcohol use. Will recommend outpatient follow-up with his primary care provider and a hematology consult can be considered. We will continue neutropenic precautions while he is hospitalized.
[2020-04-23] MEDS: ATORVASTATIN 40 MG TABLET PO SCH (20:48)
[2020-04-24] MEDS: PHENAZOPYRIDINE 100 MG TABLET PO PRN ×2 (00:16→09:41)
[2020-04-24] MEDS: SODIUM CHLORIDE FLUSH 0.9% 10 ML SYRINGE IVP SCH ×4 (00:16→23:53)
[2020-04-24 05:11] LABS: BASOPHILS % (AUTO) 0.5 %; EOSINOPHILS % (AUTO) 0.8 %; HGB - HEMOGLOBIN 12.6 g/dL (14.0-18.0); LYMPHOCYTES % (AUTO) 83.4 %; MEAN CORPUSCULAR HEMOGLOBIN 33.1 pg (27.0-31.0); MEAN CORPUSCULAR HGB CONC 34.3 g/dL (32.0-36.0); MEAN CORPUSCULAR VOLUME 96.3 fL (80.0-94.0); MEAN PLATELET VOLUME 9.6 fL (7.4-11.4); MONOCYTES % (AUTO) 12.1 %; NEUTROPHILS % (AUTO) 3.2 %; PLT - PLATELET COUNT 149 10^3/uL (130-450); RED BLOOD COUNT 3.81 10^6/uL (4.70-6.10); RED CELL DISTRIBUTION WIDTH 14.5 % (12.0-15.0); WHITE BLOOD COUNT 6.4 x10^3/uL (4.8-10.8)
[2020-04-24 05:23] LABS: CALCIUM 8.5 mg/dL (8.5-10.3); CREATININE 0.6 mg/dL (0.6-1.2)
[2020-04-24 05:50] LABS: BAND NEUTROPHILS % (MANUAL) 0 %
[2020-04-24 05:53] LABS: ABNORMAL LYMPHS % (MANUAL) 2 %; DIFFERENTIAL COMMENT MANUAL DIFFERENTIAL; EOSINOPHILS # (MANUAL) 0.1 10^3/uL (0-0.7); LYMPHOCYTES # (MANUAL) 5.4 10^3/uL (1.5-3.5); LYMPHOCYTES % (MANUAL) 82 %; MONOCYTES # (MANUAL) 0.8 10^3/uL (0.0-1.0); PLATELET ESTIMATE, MANUAL NORMAL (130-450,000) (NORMAL); PLATELET MORPHOLOGY NORMAL APPEARANCE (NORMAL); RBC MORPHOLOGY (MULTIPLE) NORMAL APPEARANCE (NORMAL)
[2020-04-24] MEDS: PANTOPRAZOLE 40 MG TABLET PO SCH (06:22)
[2020-04-24] MEDS ORDERED: CLOPIDOGREL 75 MG TABLET PO SCH (09:00)
[2020-04-24] MEDS: THIAMINE 100 MG TABLET PO SCH (09:41)
[2020-04-24] MEDS: SACCHAROMYCES BOULARDII 250 MG CAPSULE PO SCH ×2 (09:41→16:55)
[2020-04-24] MEDS: chlordiazePOXIDE 25 MG CAPSULE PO SCH (09:41)
[2020-04-24] MEDS: TAMSULOSIN 0.4 MG CAPSULE PO SCH (09:41)
[2020-04-24] MEDS: PRENATAL VITAMIN TABLET PO SCH (09:41)
[2020-04-24] MEDS: TIMOLOL 0.5% OPHTH DROPS EACHEYE SCH ×2 (09:42→20:35)
[2020-04-24] MEDS: METOPROLOL SUCCINATE 50 MG TABLET PO SCH (09:42)
[2020-04-24] MEDS: polyethylene glycoL 3350 17 GM PACKET PO SCH (09:42)
--- NOTE | 2020-04-24 13:34 | PROVIDER PROGRESS NOTE ---
Subjective - Prog Note Date Prog Note Date: 04/24/20 - Subjective Subjective: He reports feeling well overall. Still has left lower extremity weakness but this is chronic. He is ready to go to rehab to continue his recovery. Reports no chest pain or dyspnea. Current Medications - Current Medications Current Medications: Active Medications Acetaminophen (Tylenol) 650 mg PO Q4HR PRN PRN Reason: Pain or Fever > 38C (100.4F) Atorvastatin Calcium (Lipitor) 40 mg PO QPM [facility] Last Admin: 04/23/20 20:48 Dose: 40 mg Documented by: Chlordiazepoxide HCl (Librium) 25 mg PO DAILY [facility] Last Admin: 04/24/20 09:41 Dose: 25 mg Documented by: Clopidogrel Bisulfate (Plavix) 75 mg PO DAILY [facility] Last Admin: 04/24/20 09:41 Dose: 75 mg Documented by: Lorazepam (Ativan Inj (Vial)) 1 mg IVP Q30M PRN; Protocol PRN Reason: CIWA >8 Metoprolol Succinate (Toprol Xl) 50 mg PO DAILY [facility] Last Admin: 04/24/20 09:42 Dose: 50 mg Documented by: Ondansetron HCl (Zofran Inj) 4 mg IVP Q6HR PRN PRN Reason: Nausea / Vomiting Pantoprazole Sodium (Protonix) 40 mg PO QDAC [facility] Last Admin: 04/24/20 06:22 Dose: 40 mg Documented by: Phenazopyridine HCl (Pyridium) 100 mg PO TID PRN PRN Reason: urine discomfort Last Admin: 04/24/20 09:41 Dose: 100 mg Documented by: Polyethylene Glycol (Miralax) 17 gm PO DAILY [facility] Last Admin: 04/24/20 09:42 Dose: Not Given Documented by: Multivit/Folic Acid/Iron (Trinatal Rx 1) 1 tab PO DAILY [facility] Last Admin: 04/24/20 09:41 Dose: 1 tab Documented by: Saccharomyces Boulardii (Florastor) 250 mg PO BIDWM [facility] Last Admin: 04/24/20 09:41 Dose: 250 mg Documented by: Sodium Chloride (Normal Saline Flush 0.9%) 10 ml IVP PRN PRN PRN Reason: NEEDED PER PROVIDER ORDERS Sodium Chloride (Normal Saline Flush 0.9%) 10 ml IVP 0100,0900,1700 [facility] Last Admin: 04/24/20 09:42 Dose: 10 ml Documented by: Tamsulosin HCl (Flomax) 0.4 mg PO DAILY [facility] Last Admin: 04/24/20 09:41 Dose: 0.4 mg Documented by: Thiamine HCl (Vitamin B-1) 100 mg PO DAILY [facility] Last Admin: 04/24/20 09:41 Dose: 100 mg Documented by: Timolol Maleate (Timoptic 0.5% Ophth Drops) 1 drops EACHEYE BID [facility] Last Admin: 04/24/20 09:42 Dose: 1 drops Documented by: Aspirin [Children's Aspirin] 81 mg PO DAILY 09/15/13 Timolol 0.5% Ophth Drops [Timoptic 0.5% Ophth Drops] 1 drops EACHEYE BID 04/13/18 Metoprolol Succinate [Toprol Xl] 50 mg PO DAILY 04/21/20 Objective - Vital Signs/Intake & Output Reviewed Vital Signs: Yes Vital Signs: Vital Signs x48h Temp Pulse Resp BP Pulse Ox 04/24/20 08:33 36.2 C L 65 20 146/73 H 95 Intake & Output: Intake & Output 04/21/20 04/22/20 04/23/20 04/24/20 23:59 23:59 23:59 23:59 Intake Total 1935.2 2200 2060 720 Output Total 1750 1700 1775 1675 Balance 185.2 500 285 -955 - Objective General Appearance: positive: No acute distress, Alert Eyes Bilateral: positive: Normal inspection, Conjunctivae nml ENT: positive: ENT inspection nml Neck: positive: Nml inspection Respiratory: positive: No respiratory distress. negative: Wheezes, Rales Cardiovascular: positive: Regular rate & rhythm. negative: Irregularly irregular, Tachycardia, Bradycardia, Systolic murmur Abdomen: positive: Non-tender, No distention. negative: Tenderness Skin: positive: Warm, Dry Extremities: positive: No pedal edema, Other (He has bilateral ulnar deviation of his hands.) Neurologic/Psychiatric: positive: Disoriented to person, Disoriented to place, Disoriented to time, Other (His motor strength about 2-3 out of 5 in the left lower extremity. Sensation is intact in all 4 extremities. No other obvious focal deficits.). negative: Facial droop, Slurred/abnml speech - Lab Results Fish Bones: 04/24/20 04:50 04/24/20 04:50 Other Labs: Lab Results x24hrs 04/24/20 04/24/20 Range/Units 04:50 04:50 WBC 6.4 (4.8-10.8) x10^3/uL RBC 3.81 L (4.70-6.10) 10^6/uL Hgb 12.6 L (14.0-18.0) g/dL Hct 36.7 L (42.0-52.0) % MCV 96.3 H (80.0-94.0) fL MCH 33.1 H (27.0-31.0) pg MCHC 34.3 (32.0-36.0) g/dL RDW 14.5 (12.0-15.0) % Plt Count 149 (130-450) 10^3/uL MPV 9.6 (7.4-11.4) fL Neut # (Auto) Not Reportable Lymph # (Auto) Not Reportable [place] # (Auto) Not Reportable Eos # (Auto) Not Reportable Baso # (Auto) Not Reportable Absolute Nucleated RBC Not Reportable Total Counted 100 Band Neuts % (Manual) 0 (0 - 10) % Abnorm Lymph % (Manual) 2 % Nucleated RBC % Not Reportable Neutrophils # (Manual) 0.1 L* (1.5-6.6) 10^3/uL Lymphocytes # (Manual) 5.4 H (1.5-3.5) 10^3/uL Monocytes # (Manual) 0.8 (0.0-1.0) 10^3/uL Eosinophils # (Manual) 0.1 (0-0.7) 10^3/uL Basophils # (Manual) 0.0 (0-0.1) 10^3/uL Differential Comment MANUAL DIFFERENTIAL WBC Morphology NORMAL APPEARANCE (NORMAL) Platelet Estimate NORMAL (130-450,000) (NORMAL) Platelet Morphology NORMAL APPEARANCE (NORMAL) RBC Morph Micro Appear NORMAL APPEARANCE (NORMAL) Sodium 131 L (135-145) mmol/L Potassium 3.8 (3.5-5.0) mmol/L Chloride 97 L (101-111) mmol/L Carbon Dioxide 27 (21-32) mmol/L Anion Gap 7.0 (6-13) BUN 14 (6-20) mg/dL Creatinine 0.6 (0.6-1.2) mg/dL Estimated GFR (MDRD) 127 (>89) Glucose 106 H (70-100) mg/dL Calcium 8.5 (8.5-10.3) mg/dL ABX Reporting Has patient been on IV antibiotics over the past 48 hours?: No Assessment/Plan - Problem List (1) Cerebrovascular accident (CVA) Impression: MRI confirmed an area in the left inferior frontal lobe consistent with a acute/subacute ischemia. This would not explain his left lower extremity weakness and the patient does state that this is chronic for him. 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 His echocardiogram is unremarkable and he is not a diabetic. His lipid panel is also unremarkable. Continue Plavix and Lipitor. PT is recommending skilled nurse facility. His COVID test is pending but he is now medically clear for discharge once he has an accepting facility. Qualifiers: CVA mechanism: unspecified Qualified Code(s): I63.9 - Cerebral infarction, unspecified (2) UTI (urinary tract infection) Impression: There was concern on admission for urinary tract infection. He has had multiple urine cultures in the initial one was polymicrobial and the second one was less than 10,000 colonies and now his final one showed no growth. Antibiotics have since been discontinued and we will continue to monitor. Qualifiers: Urinary tract infection type: site unspecified Hematuria presence: without hematuria Qualified Code(s): N39.0 - Urinary tract infection, site not specified (3) Alcohol abuse Impression: He has not shown evidence of withdrawal. We will continue the multivitamin and thiamine. We will monitor closely for evidence of withdrawal. (4) BPH (benign prostatic hyperplasia) Impression: He has been urinating well since the Robert catheter was removed. Continue Flomax. (5) HTN (hypertension) Impression: His blood pressure has varied from the 120s to 140 systolic. We will continue metoprolol and add amlodipine 2.5 mg daily. (6) Neutropenia Impression: This has been going on since 2019. Suspect this is related to rheumatoid arthritis and possibly his alcohol use. His neutrophil count is down to 0.1 today. There has been no evidence of infection and he does not have any associated fevers. We will continue to hold off on antibiotics. Outpatient follow-up has been recommended as he may benefit from a hematology evaluation.
[2020-04-24] MEDS: ATORVASTATIN 40 MG TABLET PO SCH (20:35)
[2020-04-25 00:42] VITALS: BP 160/71
[2020-04-25] MEDS ORDERED: chlordiazePOXIDE 25 MG CAPSULE PO ONE (08:02)
[2020-04-25] MEDS ORDERED: amLODIPine 5 MG TABLET ONE (08:02)
[2020-04-25] MEDS ORDERED: CLOPIDOGREL 75 MG TABLET ONE (08:03)
[2020-04-25] MEDS ORDERED: METOPROLOL SUCCINATE 50 MG TABLET PO ONE (08:03)
[2020-04-25] MEDS ORDERED: PRENATAL VITAMIN TABLET PO ONE (08:04)
[2020-04-25] MEDS ORDERED: SACCHAROMYCES BOULARDII 250 MG CAPSULE ONE (08:05)
[2020-04-25] MEDS ORDERED: TAMSULOSIN 0.4 MG CAPSULE ONE (08:06)
[2020-04-25] MEDS ORDERED: THIAMINE 100 MG TABLET PO ONE (08:06)
[2020-04-25] MEDS ORDERED: amLODIPine 5 MG TABLET PO SCH (09:00)
--- NOTE | 2020-04-25 12:00 | Discharge Plan ---
"Discharge Plan for SNF / [facility] - Discharge Plan And Transition Orders Problem Reviewed?: Yes Disposition: 03 SNF DC/Xfer Condition: Stable Allergies and Adverse Reactions: Allergies Allergy/AdvReac Type Severity Reaction Status Date / Time gold sodium thiomalate Allergy Intermediate Rash Verified 04/20/20 22:04 Health Concerns: He was admitted after he had a fall at home and was found to have a right sided facial droop. There was concern for stroke and her underwent a MRI of the brain which confirmed an area in the left inferior frontal lobe consistent with a acute/subacute ischemia. 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 His echocardiogram is unremarkable and he is not a diabetic. His lipid panel is also unremarkable. We switched his aspirin to plavix given he had a stroke while on aspirin. He had no evidence of atrial fibrillation during this hospitalization. He does have chronic left lower extremity weakness which is present for years. This is not explained by his acute stroke. There was concern on admission for urinary tract infection. He has had multiple urine cultures in the initial one was polymicrobial and the second one was less than 10,000 colonies and now his final one showed no growth. Antibiotics have since been discontinued. He has been urinating well since the Robert catheter was removed. Continue Flomax. We added Amlodipine as his blood pressure was elevated with systolic in the 140's. He has been neutropenic since 2019. Suspect this is related to rheumatoid arthritis and possibly his alcohol use. His neutrophil count is down to 0.2 today. There has been no evidence of infection and he does not have any associated fevers. Outpatient follow-up is recommended with his PCP and he may benefit from a hematology evaluation. - SNF / [facility] Transition Orders Admit to (Facility): [facility] Discharge Diagnosis: CVA - improved. Alcohol abuse - He did not show evidence of withdrawal. BPH - stable. Hypertension - stable. Neutropenia - stable. Medicare Certification Statement: I certify that [facility] long[facility] care is medically necessary on a continuing basis for any of the conditions for which she/he is receiving care during hospitalization. Notify PCP of admission and forward orders to primary provider for signature. Other Notification Orders: Call PCP immediately if patient develops dyspnea, chest pain/tightness or edema. House Bowel Program: Yes Additional Bowel Program Orders: If no BM after 2 days, nurse may give M.O.M. 30ml PO PRN and/or ducolax Supp 1 LA and/or ARABELLA 250mg P.O., and/or senna 1-2 tabs PO. On day 3 nurse may give repeat above order until residents constipation is resolved. Medication Orders: PLEASE REFER TO THE DISCHARGE MEDICATION LIST. - Medications New Prescriptions: Tamsulosin [Flomax] 0.4 mg PO DAILY #30 capsule Atorvastatin [Lipitor] 40 mg PO QPM #30 tablet amLODIPine [Norvasc] 2.5 mg PO DAILY #30 tablet Clopidogrel [Plavix] 75 mg PO DAILY #30 tablet Timolol 0.5% Ophth Drops [Timoptic 0.5% Ophth Drops] 1 drops EACHEYE BID #1 bottle Metoprolol Succinate [Toprol Xl] 50 mg PO DAILY #30 tab - Diet Type: Geriatric Texture: Regular Liquids: Thin - Therapies | Activity Therapy: Evaluation | Treat if indicated: PT, OT"
--- NOTE | 2020-04-25 12:27 | DISCHARGE SUMMARY ---
"Discharge Summary Admit Date: 04/21/20 Discharge Date: 04/25/20 Discharging Provider: Sandip Moreno Primary Care Provider: Jorge Rogers Code Status: Do Not Attempt Resuscitation Condition at Discharge: Stable Discharge Disposition: SNF DC/Xfer Discharge Facility Name: [facility] - DIAGNOSES Admission Diagnoses: Facial droop Urinary tract infection Hyperlipidemia Alcohol abuse BPH COPD with exacerbation Hypertension Discharge Diagnoses with Status of Each Condition: CVA - improved. Alcohol abuse - He did not show evidence of withdrawal. BPH - stable. Hypertension - stable. Neutropenia - stable. - HPI History of Present Illness: H&P per Dr. Gimenez: Patient is an 89-year-old male with medical history significant for hypertension, rheumatoid arthritis, COPD, hyperlipidemia, BPH, hypertension and alcoholism|who presented to the ED via EMS after a fall at home. He stood up at bedside to urinate and describes that his back suddenly gave out and he fell. H e denied being dizzy before the episode. He denied passing out. He has a life alert which contacted EMS. It was estimated that he was on the ground for 40 minutes before they arrived. He denies headaches. Double or blurry vision. He reports drinking daily. He has a noticeable droop on the right side.. His left lower extremity is weak but he states that this is chronic. Aside from this he has no other neurologic deficits. He has slight bruising on his right temporal area and the knuckles of his left hand. CT/CTA of the head and neck was negative for any acute intracranial process. Further work-up in the ED included a urine analysis which showed a UTI. The patient is presented for admission for further work-up and treatment. - CONSULTS | PROCEDURES Procedures: MRI of the brain on April 21 showed restricted diffusion in the left anterior f rontal lobe adjacent to the frontal horn. This appears most consistent with acute/subacute ischemia. No associated hemorrhage. Echocardiogram performed April 21 showed an ejection fraction of 65 to 70%. Diastolic function is indeterminant. Left atrial volume index is normal. No significant valvular disease. No evidence of thrombus. - HOSPITAL COURSE Hospital Course: He was admitted after he had a fall at home and was found to have a right sided facial droop. There was concern for stroke and her underwent a MRI of the brain which confirmed an area in the left inferior frontal lobe consistent with a acute/subacute ischemia. 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 His echocardiogram is unremarkable and he is not a diabetic. His lipid panel is also unremarkable. We switched his aspirin to plavix given he had a stroke while on aspirin. He had no evidence of atrial fibrillation during this hospitalization. He does have chronic left lower extremity weakness which is present for years. This is not explained by his acute stroke. There was concern on admission for urinary tract infection. He has had multiple urine cultures in the initial one was polymicrobial and the second one was less than 10,000 colonies and now his final one showed no growth. Antibiotics have since been discontinued. We added Amlodipine as his blood pressure was elevated with systolic in the 140's. He has been neutropenic since 2019. Suspect this is rel ated to rheumatoid arthritis and possibly his alcohol use. His neutrophil count is 0.2 on day of discharge. There has been no evidence of infection and he does not have any associated fevers. Outpatient follow-up is recommended with his PCP and he may benefit from a hematology evaluation. - ALLERGIES Allergies/Adverse Reactions: Allergies Allergy/AdvReac Type Severity Reaction Status Date / Time gold sodium thiomalate Allergy Intermediate Rash Verified 04/20/20 22:04 - MEDICATIONS Home Medications: Ambulatory Orders Medication Instructions Recorded Confirmed Atorvastatin [Lipitor] 40 mg PO QPM #30 tablet 04/25/20 Clopidogrel [Plavix] 75 mg PO DAILY #30 tablet 04/25/20 Metoprolol Succinate [Toprol Xl] 50 mg PO DAILY #30 tab 04/25/20 Tamsulosin [Flomax] 0.4 mg PO DAILY #30 capsule 04/25/20 Timolol 0.5% Ophth Drops [Timoptic 1 drops EACHEYE BID #1 bottle 04/25/20 0.5% Ophth Drops] amLODIPine [Norvasc] 2.5 mg PO DAILY #30 tablet 04/25/20 - PHYSICAL EXAM AT DISCHARGE General Appearance: positive: No acute distress, Alert Eyes Bilateral: positive: Normal inspection, Conjunctivae nml ENT: positive: ENT inspection nml Neck: positive: Nml inspection Respiratory: positive: No respiratory distress. negative: Wheezes, Rales Cardiovascular: positive: Regular rate & rhythm, No murmur. negative: Tachyca rdia, Bradycardia, Systolic murmur Abdomen: positive: Non-tender, No distention. negative: Tenderness, Guarding, Rebound Extremities: positive: No pedal edema, Other (Bilateral ulnar deviation of his hands.) Neurologic/Psychiatric: positive: Oriented x3, Other (He has about 2-3 out of 5 motor strength in the left lower extremity. Sensation is intact in all 4 extremities.). negative: Disoriented to person, Disoriented to place, Disoriented to time, Facial droop Physical Exam Other/Comments: Vital Signs (72 hours) 04/23/20 04/24/20 04/24/20 20:58 00:32 03:59 Temperature 36.5 C 36.3 C L 36.3 C L Heart Rate [ 63 85 72 Brachial] Respiratory 18 20 16 Rate Blood Pressure 147/65 H 144/82 H 150/80 H [Right Brachial artery] O2 Saturation 99 96 97 04/24/20 04/24/20 04/24/20 08:33 13:34 15:37 Temperature 36.2 C L 36.3 C L 36.5 C Heart Rate [ 65 71 61 Brachial] Respiratory 20 20 18 Rate Blood Pressure 146/73 H 127/64 128/60 [Right Brachial artery] O2 Saturation 95 98 99 04/24/20 04/25/20 20:40 00:00 Temperature 36.4 C L 36.3 C L Heart Rate [ 64 66 Brachial] Respiratory 22 18 Rate Blood Pressure 154/70 H 160/71 H [Right Brachial artery] O2 Saturation 96 93 - LABS Result Diagrams: 04/25/20 05:00 04/25/20 05:00 - DIAGNOSTIC IMAGING Diagnostic Imaging Results: Final report reviewed - FOLLOW UP Follow Up: He will need follow-up with his primary care provider and possibly hematology given the neutropenia. - TIME SPENT Time Spent in Discharge (Minutes): 34"
[2020-04-25 16:34] LABS: CALCIUM 8.4 mg/dL (8.5-10.3); CREATININE 0.6 mg/dL (0.6-1.2)
[2020-04-25 16:49] LABS: BASOPHILS % (AUTO) 0.3 %; HGB - HEMOGLOBIN 12.5 g/dL (14.0-18.0); LYMPHOCYTES % (AUTO) 84.4 %; MEAN CORPUSCULAR HEMOGLOBIN 33.7 pg (27.0-31.0); MEAN CORPUSCULAR HGB CONC 34.8 g/dL (32.0-36.0); MEAN CORPUSCULAR VOLUME 96.8 fL (80.0-94.0); MEAN PLATELET VOLUME 9.9 fL (7.4-11.4); MONOCYTES % (AUTO) 10.6 %; NEUTROPHILS % (AUTO) 3.7 %; PLT - PLATELET COUNT 163 10^3/uL (130-450); RED BLOOD COUNT 3.71 10^6/uL (4.70-6.10); RED CELL DISTRIBUTION WIDTH 14.3 % (12.0-15.0)
[2020-04-25 17:27] LABS: ABNORMAL LYMPHS % (MANUAL) 0 %; BAND NEUTROPHILS % (MANUAL) 0 %
[2020-04-25 17:32] LABS: EOSINOPHILS # (MANUAL) 0.1 10^3/uL (0-0.7); LYMPHOCYTES # (MANUAL) 5.3 10^3/uL (1.5-3.5); LYMPHOCYTES % (MANUAL) 18 %; MONOCYTES # (MANUAL) 0.4 10^3/uL (0.0-1.0)
[2020-04-25 17:33] LABS: DIFFERENTIAL COMMENT MANUAL DIFFERENTIAL
== END 2020-04-25 14:05 | DRG 66 ==
LOC: EDUNIT# → ED 21:56 → MS2 04-21 01:04
PROVIDERS: ADMIT Internal Medicine; ATTEND Internal Medicine
DX: I63.9 Cerebral infarction, unspecified (principal); R47.1 Dysarthria and anarthria; R29.810 Facial weakness; R29.703 NIHSS score 3; N39.0 Urinary tract infection, site not specified; Z91.81 History of falling; E87.1 Hypo-osmolality and hyponatremia; E78.5 Hyperlipidemia, unspecified; F10.20 Alcohol dependence, uncomplicated; N40.0 Benign prostatic hyperplasia without lower urinary tract symptoms; J44.9 Chronic obstructive pulmonary disease, unspecified; I10 Essential (primary) hypertension; D70.9 Neutropenia, unspecified; F17.210 Nicotine dependence, cigarettes, uncomplicated; M06.9 Rheumatoid arthritis, unspecified; R53.1 Weakness; S00.83XA Contusion of other part of head, initial encounter; S60.222A Contusion of left hand, initial encounter; W18.30XA Fall on same level, unspecified, initial encounter; Y92.013 Bedroom of single-family (private) house as the place of occurrence of the external cause; Z79.82 Long term (current) use of aspirin; R31.9 Hematuria, unspecified; Z20.828 Contact with and (suspected) exposure to other viral communicable diseases
CPT/HCPCS: 36415; 70496; 70498; 70551; 71045; 76770; 80048; 80053; 80061; 81001; 82550; 83036; 83605; 83690; 83735; 83880; 84484; 85014; 85018; 85025; 85610; 85730; 87040; 87086; 93005; 93306; 96365; 96366; 97162; 97165; 97530; 99285; 99291; A9270; J3411; Q9967; U0004; 80306; 80320; 81003; 83721